=== PATIENT | male | born 1960 | race Caucasian/White ===

== ENCOUNTER 2022-06-13 09:03 | Inpatient (IN) | payer OTHER, SELFPAY ==
--- NOTE | ~2022-06-13 | MR_ITS ---
EXAMINATION: MR ABDOMEN WITHOUT CONTRAST CLINICAL INFORMATION: Pancreatitis. Rule out common bile duct stone. COMPARISON: Previous CT and ultrasound of the abdomen 06/13/2022 TECHNIQUE: MR abdomen is performed without gadolinium contrast. MRCP sequences were performed. Exam is limited due to respiratory motion artifact. FINDINGS: LUNG BASES: There may be atelectasis at the lung bases. LIVER, GALLBLADDER, AND BILIARY TREE: The liver is normal in size and signal. No focal liver lesion. The gallbladder is normal in size. There are small gallstones. Gallbladder wall does not appear thickened. There is no pericholecystic fluid. MRCP sequences are significantly limited due to respiratory motion artifact. There is no intra or extrahepatic biliary duct dilatation. The common bile duct does not appear dilated measuring 4 mm. No common bile duct stone is appreciated. PANCREAS: The pancreas is slightly enlarged. The pancreas is heterogeneous in signal. There is abnormal signal seen in the peripancreatic fat and small bowel mesentery. There is a small amount of ascites seen in the bilateral paracolic gutters and bilateral anterior pararenal spaces. Appearance is again suggestive of acute pancreatitis. SPLEEN: Unremarkable. ADRENAL GLANDS: Unremarkable. KIDNEYS AND URETERS: The kidneys are normal in size and shape. No hydronephrosis. There is perinephric stranding. GASTROINTESTINAL TRACT: There is increasing small and large bowel dilatation. This may represent an ileus. ABDOMINAL WALL: No significant hernia is appreciated. LYMPH NODES: No lymphadenopathy. VASCULAR: Unremarkable. OSSEOUS STRUCTURES: Marrow signal normal. MR/MR MRCP IMPRESSION: Very limited exam due to respiratory motion artifact. Normal caliber intra and extrahepatic bile ducts. No common bile duct stone is appreciated however exam is significantly limited. Gallstones. Changes of acute pancreatitis as described above. Distended small and large bowel probably representing an ileus.
--- NOTE | ~2022-06-13 | CT_ITS ---
EXAM: NONCONTRAST CT OF THE CHEST; NONCONTRAST CT OF THE ABDOMEN AND PELVIS INDICATION: Abdominal pain, pancreatitis, shortness of breath COMPARISON: 2722 TECHNIQUE: No IV contrast was utilized. Multidetector helical imaging was performed through the chest, abdomen, and pelvis. Coronal and sagittal reformatted images were created at the technologist workstation. DOSE LOWERING TECHNIQUES: This CT examination was performed using dose optimization techniques as appropriate, variously including the following: - Automated exposure control - Adjustment of mA and/or kV according to patient size (this includes techniques or standardized protocols for targeted exams were dose is matched to indication/reason for exam; i.e. extremities or head) - Use of iterative reconstruction technique DLP: 1028 mGy-cm FINDINGS: Chest: Suboptimal detailed assessment of the lung parenchyma due to respiratory motion artifact. Multifocal regions of consolidation are present in the left lung and to a lesser extent in the right lung. Regions of atelectasis are suspected in the dependent lower lobes. Small bilateral pleural effusions. Partially visualized thyroid gland is unremarkable. No appreciable mediastinal lymphadenopathy, though assessment is somewhat limited on this noncontrast exam. Cardiac size is within normal limits; no pericardial effusion. No axillary lymphadenopathy is present. Degenerative changes are noted in the spine. Abdomen/Pelvis: The liver is homogeneous in attenuation without intrahepatic biliary ductal dilatation. Cholelithiasis is noted. The unenhanced spleen and adrenal glands are within normal limits. There is extensive peripancreatic stranding, similar to slightly improved from prior, consistent with pancreatitis. Assessment for parenchymal necrosis cannot be made without intravenous contrast. Small amount of free fluid is present, without appreciable focal collection. The unenhanced kidneys are unremarkable without hydronephrosis. No renal or ureteral calculi are present. The urinary bladder is unremarkable. The prostate and seminal vesicles are unremarkable. The small and large bowel are unremarkable without evidence of obstruction or pericolonic inflammatory change. The appendix is unremarkable. No free fluid or free air is identified. Mild scattered calcifications along the aorta. No retroperitoneal or pelvic lymphadenopathy is seen. Partially visualized left total hip arthroplasty. Degenerative changes are noted in the spine. Bilateral L5 pars defects are noted. CT/CT abdomen pelvis wo IV con IMPRESSION: 1. Extensive peripancreatic stranding consistent with pancreatitis, similar to slightly improved from 06/13/2022. Small amount of free fluid, without appreciable focal collection. 2. Cholelithiasis. 3. Multifocal regions of pulmonary consolidation bilaterally, left lung greater than right, which may be infectious. 4. Small pleural effusions. Adjacent regions of dense opacity in the dependent lower lobes are favored to at least partially represent atelectasis.
--- NOTE | ~2022-06-13 | US_ITS ---
EXAMINATION: US ABDOMEN LIMITED CLINICAL INFORMATION: Transaminitis, abdominal pain. COMPARISON: CT from earlier today TECHNIQUE: Real-time imaging of the right upper quadrant abdominal viscera. FINDINGS: PANCREAS: Visualized proximal portions of the pancreas appears edematous. LIVER: The liver is normal in size. The liver contour is normal. Parenchymal echogenicity is normal. No focal hepatic lesion. There is no intrahepatic biliary duct dilatation seen. GALLBLADDER: Gallstones are identified along with echogenic bile. Gallbladder wall thickness is within normal limits. Sonographic Hicks sign is reportedly negative. COMMON BILE DUCT: Normal in caliber measuring 0.3 cm in diameter. RIGHT KIDNEY: No hydronephrosis. No renal calculi or focal parenchymal lesions. The kidney measures 11.6 cm in maximum dimension. FREE FLUID: Small volume of free fluid in the right upper quadrant. US/US abdomen limited IMPRESSION: 1. Edematous appearance of the pancreas, in keeping with today's CT showing findings of pancreatitis. 2. Cholelithiasis. 3. Small volume of free fluid in the right abdomen.
--- NOTE | ~2022-06-13 | XR_ITS ---
EXAMINATION: XR CHEST CLINICAL INFORMATION: Wheezing. COMPARISON: CT of the abdomen and pelvis done on 06/13/2022. TECHNIQUE: Frontal view of the chest was obtained. FINDINGS: Low lung volume is present bilaterally with patchy airspace disease at left perihilar and lower lung field, may represent infiltrate, atelectasis or combination thereof, new since 06/13/2022. Likely small amount of left-sided pleural effusion is also noted, new since prior study. The remainder of the lung mcclure are clear. The cardiomediastinal silhouette is within normal limits, given the technique. XR/XR chest 1V IMPRESSION: Interval development of patchy airspace disease at left perihilar and lower lung field associated with trace amount of left-sided pleural effusion, new since 06/13/2022.
--- NOTE | ~2022-06-13 | CT_ITS ---
EXAMINATION: CT ABDOMEN AND PELVIS WITH CONTRAST CLINICAL INFORMATION: Abdominal pain with elevated white blood cell count. COMPARISON: None TECHNIQUE: Multidetector volumetric images were obtained from the superior aspect of the liver through the pubic symphysis following administration 85 mL of Omnipaque 350 intravenous contrast. Sagittal and coronal reformatted images were obtained on the technologist's workstation. Oral contrast: No This CT examination was performed using dose optimization techniques as appropriate, variously including the following: *Automated exposure control *Adjustment of mA and/or kV according to patient size (this includes techniques or standardized protocols for targeted exams where dose is matched to indication/reason for exam; i.e. extremities or head) *Use of iterative reconstruction technique DLP: 1102 mGy-cm FINDINGS: LUNG BASES: Left basilar atelectasis is present with some nonspecific ground-glass changes. No pleural effusions or consolidations. LIVER, GALLBLADDER, AND BILIARY TREE: The liver is normal in size, shape, and attenuation. No focal hepatic lesion or biliary ductal dilatation is present. The gallbladder contains small layering gallstones without obvious pericholecystic inflammatory changes. PERITONEUM: Ascites is present predominantly in the upper abdomen surrounding the pancreas. Retroperitoneal effusion and edema is present. A tiny amount of free fluid is present in the cul-de-sac. PANCREAS: 2 areas of ill-defined hypodensity are seen in the pancreas, one in the pancreatic head measuring about 2.8 cm and a smaller region in the pancreatic tail measuring about 5 mm. Edematous changes and fluid surround the pancreas. SPLEEN: Unremarkable. ADRENAL GLANDS: Unremarkable. KIDNEYS AND URETERS: The kidneys are normal in size, shape, and attenuation. No hydronephrosis, hydroureter, or calculi seen. No perinephric stranding. BLADDER: Unremarkable. GASTROINTESTINAL TRACT: The small and large bowel are unremarkable. The appendix is not identified but there is no evidence of appendicitis. ABDOMINAL WALL: No significant hernia is appreciated. LYMPH NODES: No retroperitoneal lymphadenopathy. VASCULAR: Unremarkable. Retroaortic left renal vein is present. PELVIC VISCERA: Prostate and seminal vesicles appear normal. OSSEOUS STRUCTURES: Unremarkable. CT/CT abdomen pelvis w IV con IMPRESSION: Edematous changes predominantly surrounding the pancreatitis. Ill-defined areas of hypodensity in the pancreas. Findings are highly suggestive of acute pancreatitis. An abscess or any other cause for the patient's leukocytosis is not seen. This critical result was discussed with LAWRENCE Moscoso, at 12:50 PM on the day of the exam and it was ascertained that the content and urgency of the report was understood at the time of direct communication. Fleischner guidelines were followed.
[2022-06-13 09:42] VITALS: BP 145/96; PULSE 91; RESP 18; TEMP 36.9; O2SAT 98; BMI 32.8
--- NOTE | 2022-06-13 09:46 | ECG_ITS ---
Test Reason : abdominal pain Blood Pressure : / mmHG Vent. Rate : 079 BPM Atrial Rate : 079 BPM P-R Int : 140 ms QRS Dur : 088 ms QT Int : 392 ms P-R-T Axes : 074 060 087 degrees QTc Int : 449 ms Normal sinus rhythm Normal ECG No previous ECGs available Referred By: Generic ED Physician Electronically Signed By:TE GONCALVES
[2022-06-13 09:57] VITALS: BP 193/107; PULSE 87; RESP 12; TEMP 36.4
[2022-06-13 10:23] LABS: MANUAL DIFF FLAG NO
[2022-06-13 10:24] LABS: Basophils Percent Auto 0.2 % (0-2); Eosinophils Percent Auto 0.1 % (0-4); Hematocrit 46.7 % (42.0-52.0); Imm Gran Pct Auto 0.6 % (0.0-0.4); Lymphocytes Absolute Auto 0.6 X10*3/uL (1.2-4.9); Lymphocytes Percent Auto 3.5 % (20-40); Mean Corpuscular HGB Conc 32.1 g/dl (31.0-36.0); Mean Corpuscular Volume 81.1 fL (80.0-98.0); Mean Platelet Volume 9.9 fL (9.4-12.4); Monocytes Absolute Auto 0.9 X10*3/uL (0.1-1.2); Monocytes Percent Auto 5.6 % (2-11); Neutrophils Absolute Auto 14.8 x10*3/uL (2.0-8.3); Platelet Count 288 X10*3/uL (160-400); Red Blood Count 5.76 X10*6/uL (4.60-5.80); Red Cell Distribution Width 14.4 % (11.0-16.0); White Blood Count 16.4 X10*3/uL (4.8-10.8)
[2022-06-13] MEDS: ondansetron HCL 4 MG/2 ML VIAL IVPUSH (10:53)
[2022-06-13] MEDS: Morphine Sulfate 4 MG/ML CARTRIDGE IVPUSH ×2 (10:53→12:18)
[2022-06-13] MEDS: 0.9 % Sodium Chloride 1,000 ML 999 ML IV ×2 (10:54→14:50)
[2022-06-13 10:56] LABS: Anion Gap 18 (12-20); Blood Urea Nitrogen 22 mg/dL (9-16); Calcium 9.4 mg/dL (8.4-10.2); Carbon Dioxide 27 mmol/L (22-29); Chloride 101 mmol/L (96-108); Creatinine Clr Calc Pharmacy 83.4; Estimated Glomerular Filt Rate > 60; Glucose Random 218 mg/dL (60-115); Potassium 4.7 mmol/L (3.3-5.1); Sodium 141 mmol/L (135-145)
[2022-06-13 11:22] LABS: Alanine Aminotransferase 241 U/L (0-40); Albumin Level 4.7 g/dL (3.5-5.0); Alkaline Phosphatase 178 U/L (39-117); Aspartate Amino Transferase 259 U/L (5-37); Bilirubin Direct 0.7 mg/dL (0.0-0.5); Bilirubin Total 1.4 mg/dL (0.0-1.0); Total Protein 7.5 g/dL (6.5-8.0)
[2022-06-13 11:24] LABS: Lactic Acid 2.8 mmol/L (0.5-2.0)
[2022-06-13 11:31] LABS: Troponin-I High Sensitivity 5.8 ng/L (<3.5-35.0)
[2022-06-13 11:39] LABS: Lipase 1948 U/L (8-78)
[2022-06-13] MEDS: iohexoL 350 MG/ML 100 ML INFUS..BTL IV (11:42)
[2022-06-13] MEDS: Piperacillin Sodium/Tazobactam 3.375 GM in 0.9 % Sodium Chloride 50 ML IV (11:50)
--- NOTE | 2022-06-13 13:06 | ED_ITS ---
HPI - Abdominal Pain General Chief Complaint: Abdominal Pain Stated Complaint: severe stomach pain Time Seen by Provider: 06/13/22 10:32 Source: patient Mode of arrival: ambulatory Limitations: no limitations History of Present Illness HPI narrative: 61-year-old male history of High cholesterol presents to the ED for epigastric abdominal pain that is generailzed. Symptoms began this morning with nausea and vomitting. patient denies any urinary symptoms, Related Data Home Medications Medication Instructions Recorded Confirmed amlodipine 5 mg-benazepril 10 mg 1 cap PO DAILY 06/13/22 06/13/22 capsule fluticasone propionate 50 2 spray intranasal DAILY 06/13/22 06/13/22 mcg/actuation nasal spray,suspension omeprazole 40 mg capsule,delayed 1 cap PO DAILY 06/13/22 06/13/22 release rosuvastatin 40 mg tablet 1 tab PO DAILY 06/13/22 06/13/22 tamsulosin 0.4 mg capsule 1 cap PO DAILY 06/13/22 06/13/22 Allergies Allergy/AdvReac Type Severity Reaction Status Date / Time No Known Allergies Allergy Verified 06/13/22 09:45 Review of Systems Review of Systems Epigastric abdominal pain Yes all other systems are reviewed and are negative PMFSH Past Medical History Medical History BPH (benign prostatic hyperplasia) GERD (gastroesophageal reflux disease) HLD (hyperlipidemia) HTN (hypertension) Family History Family History Father IA (myocardial infarction) Mother Diabetes HLD (hyperlipidemia) Social History Social History Alcohol intake: current Alcohol intake frequency: holidays/special occasions only Alcohol type: beer Patient Tobacco Use Status: Never used Tobacco Use of substances other than those prescribed or required for medical reasons: No Advance Directives: Yes Advance Directives Information Provided: Yes Advance Directives on File: No Physical Exam ED Vital Signs: Vital Signs - 24 hr 06/13/22 09:42 06/13/22 09:57 06/13/22 14:44 Temperature 98.4 F 97.5 F Pulse Rate 91 87 103 H Respiratory Rate 18 12 18 Blood Pressure 145/96 H 193/107 H 147/96 H Pulse Oximetry 98 97 Oxygen Delivery Method Room Air Room Air Room Air BMI result Body Mass Index 32.8 Const General: cooperative, healthy appearing, comfortable, no acute distress, well developed, alert, awake and acute distress Orientation/consciousness: patient oriented x3 [facility] Head: Yes normal to inspection, Yes No palpable skull fracture present, Yes normocephalic, Yes atraumatic and No abrasion Eyes General: appearance normal, both eyes and all related structures Neck Neck: Yes normal visual inspection, Yes full ROM, Yes no lymphadenopathy, Yes no meningeal signs, Yes trachea midline, Yes supple, No anterior neck swelling and No tender Chest Chest palpation & inspection: normal inspection of the chest and normal palpation of entire chest wall Resp Effort & Inspection: normal respiratory effort and able to speak in complete sentences Cardio Jugular venous distension: no JVD Heart sounds: S1 normal heart sound present and S2 normal heart sound present GI Inspection: Yes normal to inspection and No abdominal wall ecchymosis Palpation (GI): Tenderness to palpation present (GI) (generalized), Guarding due to palpation present (GI) (generalized) and not rigid General: No CVA tenderness and Yes no CVA tenderness Back/Spine/Pelvis Back: no CVA tenderness, No CVA tenderness and No back tenderness Skin General skin exam: no rashes or lesions noted and elasticity normal Neuro General: patient oriented x3, gait normal, tone normal and no meningeal signs Cranial nerves: Yes CN's II-XII intact bilaterally Extrem General: Yes normal to inspection and Yes full ROM Psych Appearance: grossly normal, well kempt and not disheveled Course Course Course Narrative: Labs abdominal CT scan ordered for Reevaluation(s) Reevaluation #1: Lactic 2.6. Lipase over 1000. Morphine 8 total oral Zofran and fluids. CT scan shows pancreatitis. Patient to be admitted for acute pancreatitis. Patient was given antibiotics before CT scan was officially read due to elevated WBC an d lacitcacid. Time: 17:37 MDM - Abdominal Pain MDM Narrative Medical decision making narrative: Acute pancreatitis Lab Data Result diagrams: 06/13/22 10:18 06/13/22 10:36 Labs: Lab Results 06/13/22 06/13/22 06/13/22 Range/Units 10:18 10:36 10:36 WBC 16.4 H (4.8-10.8) X10*3/uL RBC 5.76 (4.60-5.80) X10*6/uL Hgb 15.0 (14.0-18.0) g/dl Hct 46.7 (42.0-52.0) % MCV 81.1 (80.0-98.0) fL MCH 26.0 L (27.0-33.0) pg MCHC 32.1 (31.0-36.0) g/dl RDW 14.4 (11.0-16.0) % Plt Count 288 (160-400) X10*3/uL MPV 9.9 (9.4-12.4) fL Immature Gran % (Auto) 0.6 H (0.0-0.4) % Neut % (Auto) 90.0 H (45-73) % Lymph % (Auto) 3.5 L (20-40) % [place] % (Auto) 5.6 (2-11) % Eos % (Auto) 0.1 (0-4) % Baso % (Auto) 0.2 (0-2) % Lymph # (Auto) 0.6 L (1.2-4.9) X10*3/uL [place] # (Auto) 0.9 (0.1-1.2) X10*3/uL Eos # (Auto) 0.0 (0.0-0.4) X10*3/uL Baso # (Auto) 0.0 (0.0-0.2) X10*3/uL Abs Immat Gran (auto) 0.10 H (0.00-0.03) X10*3/uL Absolute Neuts (auto) 14.8 H (2.0-8.3) x10*3/uL Absolute Nucleated RBC 0.000 (0.0-0.012) X10*3/uL Nucleated RBC % (auto) 0.0 (0.0-0.2) /100WBC Sodium 141 (135-145) mmol/L Potassium 4.7 (3.3-5.1) mmol/L Chloride 101 (96-108) mmol/L Carbon Dioxide 27 (22-29) mmol/L Anion Gap 18 (12-20) BUN 22 H (9-16) mg/dL Creatinine 1.01 (0.5-1.4) mg/dL Estim Creat Clear Calc 83.4 Estimated GFR > 60 Random Glucose 218 H (60-115) mg/dL Estimat Average Glucose Hemoglobin A1c % Lactic Acid (0.5-2.0) mmol/L Lactic Acid F/U @ 2Hr (0.5-2.0) mmol/L Calcium 9.4 (8.4-10.2) mg/dL Total Bilirubin 1.4 H (0.0-1.0) mg/dL Direct Bilirubin 0.7 H (0.0-0.5) mg/dL AST 259 H (5-37) U/L ALT 241 H (0-40) U/L Alkaline Phosphatase 178 H (39-117) U/L Troponin I High Sens 5.8 (<3.5-35.0) ng/L Total Protein 7.5 (6.5-8.0) g/dL Albumin 4.7 (3.5-5.0) g/dL Triglycerides 202 mg/dL Lipase 1948 H (8-78) U/L Urine Color Urine Appearance Urine pH (5.0-9.0) Ur Specific [place] (1.005-1.025) Urine Protein (Neg-Trace) mg/dL Urine Glucose (UA) (Negative) mg/dL Urine Ketones (Negative) mg/dL Urine Blood (Negative) Urine Nitrite (Negative) Ur Leukocyte Esterase (Negative) Urine RBC (0-2) /HPF Urine WBC (0-5) /HPF Ur Squamous Epith Cells (0-2) /HPF Urine Bacteria (None Seen) Hyaline Casts (0-2) /LPF 06/13/22 06/13/22 06/13/22 Range/Units 10:36 11:00 13:39 WBC (4.8-10.8) X10*3/uL RBC (4.60-5.80) X10*6/uL Hgb (14.0-18.0) g/dl Hct (42.0-52.0) % MCV (80.0-98.0) fL MCH (27.0-33.0) pg MCHC (31.0-36.0) g/dl RDW (11.0-16.0) % Plt Count (160-400) X10*3/uL MPV (9.4-12.4) fL Immature Gran % (Auto) (0.0-0.4) % Neut % (Auto) (45-73) % Lymph % (Auto) (20-40) % [place] % (Auto) (2-11) % Eos % (Auto) (0-4) % Baso % (Auto) (0-2) % Lymph # (Auto) (1.2-4.9) X10*3/uL [place] # (Auto) (0.1-1.2) X10*3/uL Eos # (Auto) (0.0-0.4) X10*3/uL Baso # (Auto) (0.0-0.2) X10*3/uL Abs Immat Gran (auto) (0.00-0.03) X10*3/uL Absolute Neuts (auto) (2.0-8.3) x10*3/uL Absolute Nucleated RBC (0.0-0.012) X10*3/uL Nucleated RBC % (auto) (0.0-0.2) /100WBC Sodium (135-145) mmol/L Potassium (3.3-5.1) mmol/L Chloride (96-108) mmol/L Carbon Dioxide (22-29) mmol/L Anion Gap (12-20) BUN (9-16) mg/dL Creatinine (0.5-1.4) mg/dL Estim Creat Clear Calc Estimated GFR Random Glucose (60-115) mg/dL Estimat Average Glucose Cancelled Hemoglobin A1c % Cancelled Lactic Acid 2.8 H* (0.5-2.0) mmol/L Lactic Acid F/U @ 2Hr 2.3 H* (0.5-2.0) mmol/L Calcium (8.4-10.2) mg/dL Total Bilirubin (0.0-1.0) mg/dL Direct Bilirubin (0.0-0.5) mg/dL AST (5-37) U/L ALT (0-40) U/L Alkaline Phosphatase (39-117) U/L Troponin I High Sens (<3.5-35.0) ng/L Total Protein (6.5-8.0) g/dL Albumin (3.5-5.0) g/dL Triglycerides mg/dL Lipase (8-78) U/L Urine Color Urine Appearance Urine pH (5.0-9.0) Ur Specific [place] (1.005-1.025) Urine Protein (Neg-Trace) mg/dL Urine Glucose (UA) (Negative) mg/dL Urine Ketones (Negative) mg/dL Urine Blood (Negative) Urine Nitrite (Negative) Ur Leukocyte Esterase (Negative) Urine RBC (0-2) /HPF Urine WBC (0-5) /HPF Ur Squamous Epith Cells (0-2) /HPF Urine Bacteria (None Seen) Hyaline Casts (0-2) /LPF 06/13/22 Range/Units 14:14 WBC (4.8-10.8) X10*3/uL RBC (4.60-5.80) X10*6/uL Hgb (14.0-18.0) g/dl Hct (42.0-52.0) % MCV (80.0-98.0) fL MCH (27.0-33.0) pg MCHC (31.0-36.0) g/dl RDW (11.0-16.0) % Plt Count (160-400) X10*3/uL MPV (9.4-12.4) fL Immature Gran % (Auto) (0.0-0.4) % Neut % (Auto) (45-73) % Lymph % (Auto) (20-40) % [place] % (Auto) (2-11) % Eos % (Auto) (0-4) % Baso % (Auto) (0-2) % Lymph # (Auto) (1.2-4.9) X10*3/uL [place] # (Auto) (0.1-1.2) X10*3/uL Eos # (Auto) (0.0-0.4) X10*3/uL Baso # (Auto) (0.0-0.2) X10*3/uL Abs Immat Gran (auto) (0.00-0.03) X10*3/uL Absolute Neuts (auto) (2.0-8.3) x10*3/uL Absolute Nucleated RBC (0.0-0.012) X10*3/uL Nucleated RBC % (auto) (0.0-0.2) /100WBC Sodium (135-145) mmol/L Potassium (3.3-5.1) mmol/L Chloride (96-108) mmol/L Carbon Dioxide (22-29) mmol/L Anion Gap (12-20) BUN (9-16) mg/dL Creatinine (0.5-1.4) mg/dL Estim Creat Clear Calc Estimated GFR Random Glucose (60-115) mg/dL Estimat Average Glucose Hemoglobin A1c % Lactic Acid (0.5-2.0) mmol/L Lactic Acid F/U @ 2Hr (0.5-2.0) mmol/L Calcium (8.4-10.2) mg/dL Total Bilirubin (0.0-1.0) mg/dL Direct Bilirubin (0.0-0.5) mg/dL AST (5-37) U/L ALT (0-40) U/L Alkaline Phosphatase (39-117) U/L Troponin I High Sens (<3.5-35.0) ng/L Total Protein (6.5-8.0) g/dL Albumin (3.5-5.0) g/dL Triglycerides mg/dL Lipase (8-78) U/L Urine Color Yellow Urine Appearance Clear Urine pH 5.0 (5.0-9.0) Ur Specific [place] >= 1.030 H (1.005-1.025) Urine Protein 100 (2+) H (Neg-Trace) mg/dL Urine Glucose (UA) Negative (Negative) mg/dL Urine Ketones Negative (Negative) mg/dL Urine Blood Trace H (Negative) Urine Nitrite Negative (Negative) Ur Leukocyte Esterase Negative (Negative) Urine RBC 3-5 H (0-2) /HPF Urine WBC 0-5 (0-5) /HPF Ur Squamous Epith Cells 0-2 (0-2) /HPF Urine Bacteria None Seen (None Seen) Hyaline Casts 0-2 (0-2) /LPF ECG Data Interpretation: Normal sinus rhythm. Normal EKG. Ventricular rate 79. Pr interval 140. QRS 88. QTC 449. Negative STEMI Discharge Plan Discharge Clinical Impression: Acute pancreatitis Patient Disposition: Admitted As Inpatient
[2022-06-13 13:08] LABS: Reflex Lactate? Lactic Acid Added
[2022-06-13 13:57] LABS: ~Lactic Acid-LAB USE ONLY 2.3 mmol/L (0.5-2.0)
[2022-06-13 14:02] LABS: Triglycerides 202 mg/dL
[2022-06-13 14:27] LABS: Appearance Urine Clear; Color Urine Yellow; Glucose Urine UA Negative (Negative); Leukocyte Esterase Urine Negative (Negative); Nitrite Urine Negative (Negative); Specific Gravity - Urine >= 1.030 (1.005-1.025); UMIC TRIGGER UACC YES; Urine Blood Trace (Negative); Urine Ketones Negative (Negative); Urine Protein 100 (2+) mg/dL (Neg-Trace)
[2022-06-13 14:30] LABS: Bacteria Urine None Seen (None Seen); Hyaline Casts Urine 0-2 /LPF (0-2); Squamous Epithelial Cell Urine 0-2 /HPF (0-2); WBC Urine 0-5 /HPF (0-5)
[2022-06-13 14:44] VITALS: BP 147/96; PULSE 103; RESP 18; O2SAT 97
[2022-06-13] MEDS: HYDROmorphone HCl 0.5 MG/0.5 ML SYRINGE IVPUSH (14:51)
--- NOTE | 2022-06-13 15:37 | PM.EVENT ---
Event Note Date of Service: 06/13/22 Event Note: The patient was seen and evaluated with LAWRENCE Servin. I agree with her note, assessment and plan with the following. A 61 years old male with PMH of HLD presents to the hospital with epigastric pain of sudden onset. Associated with nausea, vomiting, radiating to his back. CT scan consistent with pancreatitis. The patient reported history of recurrent abdominal pain after dinner for the last few months associated with nausea and vomiting on occasions. Denies any fever, chills, shortness of breath, change in bowel habit or urinary symptoms. Acute pancreatitis with transaminitis Could be secondary to passing stone Check ultrasound of the liver Get GI and surgery evaluation IV fluids high rate Dilaudid for pain control Keep NPO for now Rest of evaluations by PA note.
--- NOTE | 2022-06-13 15:38 | P.HPHOSP_ITS ---
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 He had also received influenza vaccine and COVID-19 booster earlier in the day. States the pain is primarily epigastric but radiates to the right and left upper quadrants. Denies radaition to the back. There is associated nausea but no vomiting. Also endorses constipation. He rarely consumes alcohol and did not have any alcohol yesterday. States the pain is so severe it is difficult to take a breath. States he has had similar episodes, typically postprandial, over the last few months that resolve spontaneously. States he will take tums or pepcid to help with sx but did not help last night. In ED, mild tachycardia 103, hypertensive 193/107 improved to 147/96. WBC 16.4. Lactic acid 2.8, improved to 2.3. Lipase 1948. AST 259, ALT 241, alk phos 178, total bili 1.4, direct bili 0.7. Glucose 218. Triglycerides 205. CT abd/pelvis shows edematous changes predominantly surrounding the pancreas. Ill-defined areas of hypodensity in the pancreas. Findings highly suggestive of acute pancreatitis without abscess. IN ED, patient recevied dose zosyn, 2L IVF bolus, and dilaudid. Pt to be admitted for acute pancreatitis with transaminitis. Review of Systems Review of Systems: General: No fevers, malaise, unintentional weight loss Cardiovascular: No chest pain, palpitations, or leg edema Respiratory: No shortness of breath, wheezing, cough GI: +epigastric pain, +nausea, +constiaption. No vomiting, diarrhea, melena, hematochezia : No dysuria, hematuria, increased urinary frequency. Neuro: No headaches, weakness, paresthesias Skin: No rashes or lesions [facility] Medical History (Updated 06/13/22 @ 15:55 by LAWRENCE Servin) BPH (benign prostatic hyperplasia) GERD (gastroesophageal reflux disease) HLD (hyperlipidemia) HTN (hypertension) Family History (Updated 06/13/22 @ 15:56 by LAWRENCE Servin) Father IA (myocardial infarction) Mother Diabetes HLD (hyperlipidemia) Social History (Updated 06/13/22 @ 15:57 by LAWRENCE Servin) Alcohol intake: current Alcohol intake frequency: holidays/special occasions only Alcohol type: beer Patient Tobacco Use Status: Never used Tobacco Use of substances other than those prescribed or required for medical reasons: No Advance Directives: Yes Advance Directives Information Provided: Yes Advance Directives on File: No Meds Allergies Allergy/AdvReac Type Severity Reaction Status Date / Time No Known Allergies Allergy Verified 06/13/22 09:45 Active Medications: Current Medications Sodium Chloride (Ns) 1,000 mls @ 999 mls/hr IV .Q1H1M STA Stop: 06/13/22 15:45 Last Admin: 06/13/22 14:50 Dose: 999 mls/hr Pharmacy Consult (Consult Rx Perform Med Rec) 1 each MISCELLANE ONCE PRN PRN Reason: Consult order Pharmacy Consult (Consult Rx Perform Med Rec) 1 each MISCELLANE ONCE PRN PRN Reason: Consult order Home Medications Medication Instructions Recorded Confirmed Last Taken Type amlodipine 5 mg-benazepril 10 mg 1 cap PO DAILY 06/13/22 06/13/22 06/12/22 History capsule fluticasone propionate 50 2 spray intranasal DAILY 06/13/22 06/13/22 06/12/22 History mcg/actuation nasal spray,suspension omeprazole 40 mg capsule,delayed 1 cap PO DAILY 06/13/22 06/13/22 06/12/22 History release rosuvastatin 40 mg tablet 1 tab PO DAILY 06/13/22 06/13/22 06/12/22 History tamsulosin 0.4 mg capsule 1 cap PO DAILY 06/13/22 06/13/22 06/12/22 History Physical Exam Vital Signs and Narrative: Vital Signs: Last Vital Signs Temp 97.5 F 06/13/22 09:57 Pulse 103 H 06/13/22 14:44 Resp 18 06/13/22 14:44 BP 147/96 H 06/13/22 14:44 Pulse Ox 97 06/13/22 14:44 O2 Del Method 06/13/22 14:44 BMI result Body Mass Index 32.8 Constitutional - Awake and Alert, patient grimmacing in pain holding abdomen Eyes - PERRLA, EOMI Cardiovascular - S1S2, RRR, No edema Respiratory - Normal lung expansion, Normal respiratory effort, No respiratory distress, CTA bilaterally Gastrointestinal - Severe epigastric pain ttp with guarding. Mildly distended. +BS; Extremities - no calf tenderness bilaterally, no swelling Skin - Warm/Dry Neurological - Alert & oriented x3, CN II -XII in tact. 5/5 strength bue and ble Results Labs CBC and Chem 7: 06/13/22 10:18 06/13/22 10:36 Labs: Laboratory Results - last 24 hr 06/13/22 06/13/22 06/13/22 10:18 10:36 11:00 MCV 81.1 MCH 26.0 L MCHC 32.1 RDW 14.4 Plt Count 288 MPV 9.9 Immature Gran % (Auto) 0.6 H Neut % (Auto) 90.0 H Lymph % (Auto) 3.5 L [place] % (Auto) 5.6 Eos % (Auto) 0.1 Baso % (Auto) 0.2 Lymph # (Auto) 0.6 L [place] # (Auto) 0.9 Eos # (Auto) 0.0 Baso # (Auto) 0.0 Abs Immat Gran (auto) 0.10 H Absolute Neuts (auto) 14.8 H Absolute Nucleated RBC 0.000 Nucleated RBC % (auto) 0.0 Anion Gap 18 Estim Creat Clear Calc 83.4 Estimated GFR > 60 Random Glucose 218 H Lactic Acid 2.8 H* Lactic Acid F/U @ 2Hr Calcium 9.4 Total Bilirubin 1.4 H Direct Bilirubin 0.7 H AST 259 H ALT 241 H Alkaline Phosphatase 178 H Total Protein 7.5 Albumin 4.7 Triglycerides 202 Lipase 1948 H Urine Color Urine Appearance Urine pH Ur Specific [place] Urine Protein Urine Glucose (UA) Urine Ketones Urine Blood Urine Nitrite Ur Leukocyte Esterase Urine RBC Urine WBC Ur Squamous Epith Cells Urine Bacteria Hyaline Casts 06/13/22 06/13/22 13:39 14:14 MCV MCH MCHC RDW Plt Count MPV Immature Gran % (Auto) Neut % (Auto) Lymph % (Auto) [place] % (Auto) Eos % (Auto) Baso % (Auto) Lymph # (Auto) [place] # (Auto) Eos # (Auto) Baso # (Auto) Abs Immat Gran (auto) Absolute Neuts (auto) Absolute Nucleated RBC Nucleated RBC % (auto) Anion Gap Estim Creat Clear Calc Estimated GFR Random Glucose Lactic Acid Lactic Acid F/U @ 2Hr 2.3 H* Calcium Total Bilirubin Direct Bilirubin AST ALT Alkaline Phosphatase Total Protein Albumin Triglycerides Lipase Urine Color Yellow Urine Appearance Clear Urine pH 5.0 Ur Specific [place] >= 1.030 H Urine Protein 100 (2+) H Urine Glucose (UA) Negative Urine Ketones Negative Urine Blood Trace H Urine Nitrite Negative Ur Leukocyte Esterase Negative Urine RBC 3-5 H Urine WBC 0-5 Ur Squamous Epith Cells 0-2 Urine Bacteria None Seen Hyaline Casts 0-2 Imaging Radiologist's Impressions: Impressions Abdomen/Pelvis CT 06/13/22 11:45 IMPRESSION: Edematous changes predominantly surrounding the pancreatitis. Ill-defined areas of hypodensity in the pancreas. Findings are highly suggestive of acute pancreatitis. An abscess or any other cause for the patient's leukocytosis is not seen. This critical result was discussed with LAWRENCE Moscoso, at 12:50 PM on the day of the exam and it was ascertained that the content and urgency of the report was understood at the time of direct communication. Fleischner guidelines were followed. Assessment and Plan (1) Acute pancreatitis: Status: Acute (2) Transaminitis: Status: Acute Plan 61 year old male with history of htn, hld, gerd, and bph admitted for acute pancreatitis of unclear etiology and transamininitis. 1-Acute pancreatitis- etiology unclear at this time -CT/abd pelvis with acute pancreatitis. Lipase >1900 -Triglycerides mildly elevated at 205. No recent etoh use -Received 2L NS. Continue LR @150mls/hr. Check potassium in several hours -Pain control using pain scale -Check lipase am -NPO, advance diet as tolerated -Meeting SIRS criteria but etiology not infectious. Tachycardic d/t pain. WBC elevated d/t pancreatitis/inflammation. Lactic acid elevated d/t dehydration. Not sepsis -GI consult placed 2-Transaminitis -AST 259, ALT 241, alk phos 179, total bili 1.4, direct bili 0.7 -Possible biliary colic- describes intermittent post prandial ruq/epigastric pain last 3 months -RUQ u/s ordered -GI and general surgery consutled 3-HTN- bp elevated due to pain, but improving following pain meds -Continue home meds -Monitor bp 4-HLD -COntinue crestor 5-GERD -Continue ppi 6-BPH -conitnue flomax DVT prophylaxis- lovenox Full code Pt requires inpt stay at least 2 midnights for management of acute pancreatitis. Pt requires aggressive IVF management and NPO status with diet advancement as tolerated. Etiology of pancreatitis is unclear and further workup is required to determine and manage etiology. Quality Stroke Does the patient have a stroke diagnosis?: No VTE Prior VTE?: No VTE Risk Level:: Medical - moderate - high VTE Device Contraindication: Treatment Not Indicated VTE Drug Contraindication: N/A - Med Ordered
[2022-06-13 15:41] LABS: Reflex Lactate? 2 Y
--- NOTE | 2022-06-13 15:48 | PM.CNGS ---
History of Present Illness Consult details Consult date: 06/13/22 Narrative: The pt is a 61y man seen at the request of the ER & hospitalist/medical team for pancreatitis. The patient states that the 1st episode started about 3 months ago and he attributed it to eating the wrong thing. He reports a couple other episodes but none as severe as this episode that started last night. He notes that around 830pm his epigastric and back pain became much more diffuse in unrelenting, it was accompanied by nausea and vomiting any came to the emergency department. He denies any alcohol use but notes that he does vape nicotine. He denies any street drug use Review of Systems Review of Systems: Yes all other systems are reviewed and are negative Constitutional: Constitutional: Reports as per [facility] Past Medical History Medical History BPH (benign prostatic hyperplasia) GERD (gastroesophageal reflux disease) HLD (hyperlipidemia) HTN (hypertension) Family History Family History Father [place] (myocardial infarction) Mother Diabetes HLD (hyperlipidemia) Social History Social History Alcohol intake: current Alcohol intake frequency: holidays/special occasions only Alcohol type: beer Patient Tobacco Use Status: Never used Tobacco Use of substances other than those prescribed or required for medical reasons: No Advance Directives: Yes Advance Directives Information Provided: Yes Advance Directives on File: No Meds Allergies Allergy/AdvReac Type Severity Reaction Status Date / Time No Known Allergies Allergy Verified 06/13/22 09:45 Active Medications: Current Medications Acetaminophen (Acetaminophen 325 Mg Tablet) 650 mg PO Q6H PRN PRN Reason: Pain, Mild (Pain Scale 1-3) Docusate Sodium (Docusate Sodium 100 Mg Capsule) 100 mg PO BID [facility] Enoxaparin Sodium (Enoxaparin Sodium 40 Mg/0.4 Ml Syringe) 40 mg SUBCUT Q24H [facility] Hydromorphone HCl (Hydromorphone Hcl 1 Mg/Ml Syringe) 1 mg IVPUSH Q4H PRN; Protocol PRN Reason: Pain, Severe (Pain Scale 7-10) Lactated Ringer's (Lr) 1,000 mls @ 150 mls/hr IVCONT .Q6H40M [facility] Morphine Sulfate (Morphine Sulfate 4 Mg/Ml Cartridge) 1 mg IVPUSH Q4H PRN; Protocol PRN Reason: Pain, Moderate (Pain Scale 4-6 Ondansetron HCl (Ondansetron Hcl 4 Mg/2 Ml Vial) 4 mg IVPUSH Q8H PRN PRN Reason: Nausea and Vomiting Pharmacy Consult (Consult Rx Perform Med Rec) 1 each MISCELLANE ONCE PRN PRN Reason: Consult order Sodium Chloride (0.9 % Sodium Chloride Flush 3 Ml Syringe) 3 ml IVFLUSH QSHIFT COUNTS INCLUDE 234 BEDS AT THE [facility] Home Medications Medication Instructions Recorded Confirmed Last Taken Type amlodipine 5 mg-benazepril 10 mg 1 cap PO DAILY 06/13/22 06/13/22 06/12/22 History capsule fluticasone propionate 50 2 spray intranasal DAILY 06/13/22 06/13/22 06/12/22 History mcg/actuation nasal spray,suspension omeprazole 40 mg capsule,delayed 1 cap PO DAILY 06/13/22 06/13/22 06/12/22 History release rosuvastatin 40 mg tablet 1 tab PO DAILY 06/13/22 06/13/22 06/12/22 History tamsulosin 0.4 mg capsule 1 cap PO DAILY 06/13/22 06/13/22 06/12/22 History Physical Exam Vital Signs: Vital Signs: Last Vital Signs Temp 97.5 F 06/13/22 09:57 Pulse 103 H 06/13/22 14:44 Resp 18 06/13/22 14:44 BP 147/96 H 06/13/22 14:44 Pulse Ox 97 06/13/22 14:44 O2 Del Method 06/13/22 14:44 BMI result Body Mass Index 32.8 The patient is uncomfortable and lying on his left side NC/AT, PERRLA, EOMI Mood, affect & judgment all appear appropriate under the circumstances Sclera anicteric conjunctiva pink and moist Oropharynx is clear with no aphthous ulcers, Mallampati class 4, mucous membranes moist Neck is supple with no masses, adenopathy or bruits Heart is regular, normal S1-S2 no rubs or murmurs Lungs are clear and equal anteriorly with no audible wheezing, rubs or dullness to percussion Abdomen is overweight with no demonstrable hernias. Diffuse tenderness, predominantly in the epigastrium is noted with no peritoneal irritation to percussion. No HSM, rebound, rigidity, guarding, masses or bruits are present. Rectal exam is deferred Skin has good turgor and is free of rashes Extremities free of cyanosis clubbing edema Results Labs Result diagrams: 06/13/22 10:18 06/13/22 10:36 Labs: Abnormal lab results 06/13/22 06/13/22 06/13/22 Range/Units 10:18 10:36 11:00 WBC 16.4 H (4.8-10.8) X10*3/uL MCH 26.0 L (27.0-33.0) pg Immature Gran % (Auto) 0.6 H (0.0-0.4) % Neut % (Auto) 90.0 H (45-73) % Lymph % (Auto) 3.5 L (20-40) % Lymph # (Auto) 0.6 L (1.2-4.9) X10*3/uL Abs Immat Gran (auto) 0.10 H (0.00-0.03) X10*3/uL Absolute Neuts (auto) 14.8 H (2.0-8.3) x10*3/uL BUN 22 H (9-16) mg/dL Random Glucose 218 H (60-115) mg/dL Lactic Acid 2.8 H* (0.5-2.0) mmol/L Lactic Acid F/U @ 2Hr (0.5-2.0) mmol/L Total Bilirubin 1.4 H (0.0-1.0) mg/dL Direct Bilirubin 0.7 H (0.0-0.5) mg/dL AST 259 H (5-37) U/L ALT 241 H (0-40) U/L Alkaline Phosphatase 178 H (39-117) U/L Lipase 1948 H (8-78) U/L Ur Specific [place] (1.005-1.025) Urine Protein (Neg-Trace) mg/dL Urine Blood (Negative) Urine RBC (0-2) /HPF 06/13/22 06/13/22 Range/Units 13:39 14:14 WBC (4.8-10.8) X10*3/uL MCH (27.0-33.0) pg Immature Gran % (Auto) (0.0-0.4) % Neut % (Auto) (45-73) % Lymph % (Auto) (20-40) % Lymph # (Auto) (1.2-4.9) X10*3/uL Abs Immat Gran (auto) (0.00-0.03) X10*3/uL Absolute Neuts (auto) (2.0-8.3) x10*3/uL BUN (9-16) mg/dL Random Glucose (60-115) mg/dL Lactic Acid (0.5-2.0) mmol/L Lactic Acid F/U @ 2Hr 2.3 H* (0.5-2.0) mmol/L Total Bilirubin (0.0-1.0) mg/dL Direct Bilirubin (0.0-0.5) mg/dL AST (5-37) U/L ALT (0-40) U/L Alkaline Phosphatase (39-117) U/L Lipase (8-78) U/L Ur Specific [place] >= 1.030 H (1.005-1.025) Urine Protein 100 (2+) H (Neg-Trace) mg/dL Urine Blood Trace H (Negative) Urine RBC 3-5 H (0-2) /HPF Short CBC 06/13/22 Range/Units 10:18 WBC 16.4 H (4.8-10.8) X10*3/uL Hgb 15.0 (14.0-18.0) g/dl Hct 46.7 (42.0-52.0) % Plt Count 288 (160-400) X10*3/uL BMP 06/13/22 10:36 Sodium 141 Potassium 4.7 Chloride 101 Carbon Dioxide 27 BUN 22 H Creatinine 1.01 Calcium 9.4 Liver Function 06/13/22 Range/Units 10:36 Total Bilirubin 1.4 H (0.0-1.0) mg/dL Direct Bilirubin 0.7 H (0.0-0.5) mg/dL AST 259 H (5-37) U/L ALT 241 H (0-40) U/L Alkaline Phosphatase 178 H (39-117) U/L Albumin 4.7 (3.5-5.0) g/dL Urine 06/13/22 Range/Units 14:14 Urine Color Yellow Urine Appearance Clear Urine pH 5.0 (5.0-9.0) Ur Specific [place] >= 1.030 H (1.005-1.025) Urine Protein 100 (2+) H (Neg-Trace) mg/dL Urine Glucose (UA) Negative (Negative) mg/dL All other labs normal. Imaging Abdomen CT scan report/results: report reviewed and image reviewed CT scan - pelvis: report reviewed and image reviewed Abdominal ultrasound report/results: pending and image reviewed EKG: report reviewed Assessment and Plan (1) Acute pancreatitis: Status: Acute (2) Gallstones: Status: Acute (3) Transaminitis: Status: Acute Plan In reviewing the CT, the patient has a significant amount of peripancreatic and retroperitoneal inflammation, therefore, he remains and risk for fluid shifts. Monitor urine output very closely and follow electrolytes. Trend [place] criteria data given the retroperitoneal inflammation. Would recommend GI consultation. CBD is measured at 5 mm on ultrasound, official report is pending. Patient may need MRCP or ERCP if there is evidence of choledocholithiasis or if the patient's labs do not normalize in an expected manner. Rapid normalization is typically seen in gallstone pancreatitis and the recommendation for cholecystectomy will be reviewed when the patient is medically stable. The patient states he does not drink, so alcohol-induced pancreatitis is less likely. Thank you for asking me to participate in his care. Procedures Date of Service Date of Service: 06/13/22
--- NOTE | 2022-06-13 16:03 | PHA.MEDREC ---
Pharmacy Consult ? Medication Reconciliation Pharmacy has completed the medication reconciliation.
[2022-06-13 16:14] LABS: ~Lactic Acid-LAB USE ONLY 3.9 mmol/L (0.5-2.0)
[2022-06-13] MEDS: Enoxaparin Sodium 40 MG/0.4 ML SYRINGE SUBCUT (16:21)
[2022-06-13] MEDS: 0.9 % Sodium Chloride Flush 3 ML SYRINGE IVFLUSH (16:21)
[2022-06-13] MEDS: Lactated Ringers 1,000 ML 150 ML IVCONT ×2 (16:21→22:51)
[2022-06-13 16:26] VITALS: BP 142/94; PULSE 89; RESP 14; O2SAT 95
--- NOTE | 2022-06-13 17:06 | MHC.CM.PN ---
Attempted to meet with patient for d/c planning, but pt was sleeping. Pt was just recently medicated for patient. Admitted with acute pancreatitis. Will attempt to meet with patient when awake.
--- NOTE | 2022-06-13 18:06 | PM.GICN ---
History of Present Illness Data of Consult Service Date: 06/13/22 Requesting physician: Yamile Almaguer Primary Care Provider: Woody Duvall MD [facility] Reason for consult: pancreatitis 61 year old male with history of htn, hld, gerd, and bph who I am seeing for assessment for abdominal pain He has noted on and off crampy RUQ pain for last sevral weeks worse with fatty foods. This time pain was much more severe 10/10 in severity and in RUQ without radiation, and occurred after eating ham tool grinder. He did have nausea but no vomiting. Pain can be worse with breathing and eased by anlagesics. No alcohol intake and no prior history of stomach or pancreas problems, had EGD within last 6 months at [facility] and told he had esophagitis. Labs: WBC 16.4. Lactic acid 2.8, improved to 2.3. Lipase 1948. AST 259, ALT 241, alk phos 178, total bili 1.4, direct bili 0.7. Glucose 218. Triglycerides 205 Imaging: CT abd/pelvis shows edematous changes predominantly surrounding the pancreas.? Ill-defined areas of hypodensity in the pancreas. US with gallstones, no cbd stones. Review of Systems Review of Systems: Constitutional : No Weight loss, No Fever, No Chills ENT/Mouth : No sore throat, No Rhinorrhea Eyes: No Swelling, No Redness Cardiovascular : No Chest Pain, No SOB, No Edema Respiratory : No Cough, No Sputum, No Wheezing Gastrointestinal : see HPI Genitourinary : NO Dysuria, No Urinary Frequency, No Hematuria, No Urgency Musculoskeletal : No joint pain, No Myalgias, No Joint Swelling Skin : No Skin Lesions, No rash Neuro : No Weakness, No Numbness, No Dizziness, No Headache Psych : No Anxiety/Panic, No Depression Heme/Lymph: No Bruising, No Lymphadenopathy Endocrine : No Polyuria, No Polydipsia All other systems reviewed and are negative. Constitutional: Constitutional: Reports as per [facility]PI [facility] Past Medical History Medical History BPH (benign prostatic hyperplasia) GERD (gastroesophageal reflux disease) HLD (hyperlipidemia) HTN (hypertension) Family History Family History Father [place] (myocardial infarction) Mother Diabetes HLD (hyperlipidemia) Social History Social History Alcohol intake: current Alcohol intake frequency: holidays/special occasions only Alcohol type: beer Patient Tobacco Use Status: Never used Tobacco Use of substances other than those prescribed or required for medical reasons: No Advance Directives: Yes Advance Directives Information Provided: Yes Advance Directives on File: No Meds Allergies Allergy/AdvReac Type Severity Reaction Status Date / Time No Known Allergies Allergy Verified 06/13/22 09:45 Active Medications: Current Medications Acetaminophen (Acetaminophen 325 Mg Tablet) 650 mg PO Q6H PRN PRN Reason: Pain, Mild (Pain Scale 1-3) Amlodipine Besylate (Amlodipine Besylate 5 Mg Tablet) 5 mg PO DAILY [facility] Atorvastatin Calcium (Atorvastatin Calcium 80 Mg Tablet) 80 mg PO DAILY [facility] Docusate Sodium (Docusate Sodium 100 Mg Capsule) 100 mg PO BID [facility] Enoxaparin Sodium (Enoxaparin Sodium 40 Mg/0.4 Ml Syringe) 40 mg SUBCUT Q24H [facility] Last Admin: 06/13/22 16:21 Dose: 40 mg Fluticasone Propionate (Fluticasone Propionate Nasal 16 Gm [place]) 2 spray NOSTRIL-B DAILY [facility] Hydromorphone HCl (Hydromorphone Hcl 1 Mg/Ml Syringe) 1 mg IVPUSH Q4H PRN; Protocol PRN Reason: Pain, Severe (Pain Scale 7-10) Lactated Ringer's (Lr) 1,000 mls @ 150 mls/hr IVCONT .Q6H40M [facility] Last Admin: 06/13/22 16:21 Dose: 150 mls/hr Lisinopril (Lisinopril 10 Mg Tablet) 10 mg PO DAILY [facility] Morphine Sulfate (Morphine Sulfate 4 Mg/Ml Cartridge) 1 mg IVPUSH Q4H PRN; Protocol PRN Reason: Pain, Moderate (Pain Scale 4-6 Omeprazole (Omeprazole 40 Mg Capsule.Dr) 40 mg PO DAILY@0600 [facility] Ondansetron HCl (Ondansetron Hcl 4 Mg/2 Ml Vial) 4 mg IVPUSH Q8H PRN PRN Reason: Nausea and Vomiting Pharmacy Consult (Consult Rx Perform Med Rec) 1 each MISCELLANE ONCE PRN PRN Reason: Consult order Sodium Chloride (0.9 % Sodium Chloride Flush 3 Ml Syringe) 3 ml IVFLUSH QSHIFT [facility] Last Admin: 06/13/22 16:21 Dose: 3 ml Tamsulosin HCl (Tamsulosin Hcl 0.4 Mg Capsule) 0.4 mg PO DAILY@1700 [facility] Home Medications Medication Instructions Recorded Confirmed Last Taken Type amlodipine 5 mg-benazepril 10 mg 1 cap PO DAILY 06/13/22 06/13/22 06/12/22 History capsule fluticasone propionate 50 2 spray intranasal DAILY 06/13/22 06/13/22 06/12/22 History mcg/actuation nasal spray,suspension omeprazole 40 mg capsule,delayed 1 cap PO DAILY 06/13/22 06/13/22 06/12/22 History release rosuvastatin 40 mg tablet 1 tab PO DAILY 06/13/22 06/13/22 06/12/22 History tamsulosin 0.4 mg capsule 1 cap PO DAILY 06/13/22 06/13/22 06/12/22 History Physical Exam Vital Signs: Vital Signs: Last Vital Signs Temp 97.5 F 06/13/22 09:57 Pulse 89 06/13/22 16:26 Resp 14 06/13/22 16:26 BP 142/94 H 06/13/22 16:26 Pulse Ox 95 06/13/22 16:26 O2 Del Method 06/13/22 16:26 BMI result Body Mass Index 32.8 Const: General: cooperative, healthy appearing, comfortable, no acute distress, well developed, alert, awake and acute distress Orientation/consciousness: patient oriented x3 HEENT: Head: Yes normal to inspection, Yes No palpable skull fracture present, Yes normocephalic, Yes atraumatic and No abrasion Eyes: General: appearance normal, both eyes and all related structures Neck: Neck: Yes normal visual inspection, Yes full ROM, Yes no lymphadenopathy, Yes no meningeal signs, Yes trachea midline, Yes supple, No anterior neck swelling and No tender Chest: Chest palpation & inspection: normal inspection of the chest and normal palpation of entire chest wall Resp: Effort & Inspection: normal respiratory effort and able to speak in complete sentences Cardio: Jugular venous distension: no JVD Heart sounds: S1 normal heart sound present and S2 normal heart sound present GI: Inspection: Yes normal to inspection and No abdominal wall ecchymosis Palpation (GI): Tenderness to palpation present (GI) (generalized), Guarding due to palpation present (GI) (generalized) and not rigid : General: No CVA tenderness and Yes no CVA tenderness Back/Spine/Pelvis: Back: no CVA tenderness, No CVA tenderness and No back tenderness Skin: General skin exam: no rashes or lesions noted and elasticity normal Neuro: General: patient oriented x3, gait normal, tone normal and no meningeal signs Cranial nerves: Yes CN's II-XII intact bilaterally Extrem: General: Yes normal to inspection and Yes full ROM Psych: Appearance: grossly normal, well kempt and not disheveled Results Labs CBC & Chem 7: 06/13/22 10:18 06/13/22 10:36 Labs: Short CBC 06/13/22 Range/Units 10:18 WBC 16.4 H (4.8-10.8) X10*3/uL Hgb 15.0 (14.0-18.0) g/dl Hct 46.7 (42.0-52.0) % Plt Count 288 (160-400) X10*3/uL BMP 06/13/22 10:36 Sodium 141 Potassium 4.7 Chloride 101 Carbon Dioxide 27 BUN 22 H Creatinine 1.01 Calcium 9.4 Liver Function 06/13/22 Range/Units 10:36 Total Bilirubin 1.4 H (0.0-1.0) mg/dL Direct Bilirubin 0.7 H (0.0-0.5) mg/dL AST 259 H (5-37) U/L ALT 241 H (0-40) U/L Alkaline Phosphatase 178 H (39-117) U/L Albumin 4.7 (3.5-5.0) g/dL Urine 06/13/22 Range/Units 14:14 Urine Color Yellow Urine Appearance Clear Urine pH 5.0 (5.0-9.0) Ur Specific [place] >= 1.030 H (1.005-1.025) Urine Protein 100 (2+) H (Neg-Trace) mg/dL Urine Glucose (UA) Negative (Negative) mg/dL Imaging CT scan - abdomen: Attestation: I personally reviewed and interpreted this imaging study as follows: My impression: edematous and swollen pancreas US - abdomen: Attestation: I personally reviewed and interpreted this imaging study as follows: My impression: gallstones in GB Assessment and Plan (1) Acute pancreatitis: Status: Acute (2) Gallstones: Status: Acute (3) Transaminitis: Status: Acute Plan 1/ Acute gallstone related interstitial pancreatitis, probably passed or is passing a stone PLAN: 1/ Cont to trend LFT< if rising then MRCP 2/ resuscitate with LR 3-4 L over 24 hrs 3/ early diet as tolerated and able 4/ cont with analgesia 5/ can add trental 400 mg tid may help by anit inflammatory action 6/ surgical consult Procedures Date of Service Date of Service: 06/13/22
[2022-06-13 18:27] VITALS: BP 156/94; PULSE 101; RESP 21; O2SAT 96
[2022-06-13] MEDS: HYDROmorphone HCl 1 MG/ML SYRINGE IVPUSH ×2 (18:28→22:52)
[2022-06-13 19:23] LABS: Potassium 4.9 mmol/L (3.3-5.1)
[2022-06-13 19:27] LABS: Lactic Acid 3.7 mmol/L (0.5-2.0)
[2022-06-13 21:05] LABS: Reflex Lactate? Lactic Acid Added
--- NOTE | 2022-06-13 21:23 | MHC.CM.PN ---
Pt continues to sleep soundly with pillow over head. CM will attempt to meet with patient when he wakes. CM to follow for d/c planning.
[2022-06-13 22:16] LABS: ~Lactic Acid-LAB USE ONLY 3.5 mmol/L (0.5-2.0)
[2022-06-13] MEDS: Docusate Sodium 100 MG CAPSULE PO (22:23)
--- NOTE | 2022-06-13 22:25 | PC.NURSE ---
Awaiting dose of Trental from pharmacy - they are sending a dose now
[2022-06-13] MEDS: Pentoxifylline ER 400 MG TABLET.ER PO (22:35)
--- NOTE | 2022-06-13 22:42 | MHC.CM.PN ---
Pt awake. CM met to review discharge planning. A&Ox4. In significant pain. Awaiting pain medication. RN aware. Acute Pancreatitis. Moderna x3/Pfizer x1. HCP/ Kasandra Allen ([phone]). Copy requested. Lives with . No DME/Services. D/C plan: home without services. with transport. CM to follow for discharge planning.
[2022-06-13 23:14] LABS: COVID-19 Test Negative (Negative); IDNOW Serial# 55D5AD1C
[2022-06-13 23:55] LABS: Reflex Lactate? 2 Y
[2022-06-13 23:57] VITALS: BP 128/80; PULSE 108; RESP 20; TEMP 36.7; O2SAT 93
[2022-06-14 00:36] LABS: ~Lactic Acid-LAB USE ONLY 3.6 mmol/L (0.5-2.0)
[2022-06-14 05:10] LABS: Estimated Average Glucose 114 mg/dL; Hemoglobin A1c % 5.6 %
[2022-06-14] MEDS: HYDROmorphone HCl 1 MG/ML SYRINGE IVPUSH ×6 (05:11→23:28)
[2022-06-14 05:15] VITALS: BP 153/62; PULSE 99; RESP 22; O2SAT 93
[2022-06-14] MEDS: Lactated Ringers 1,000 ML 150 ML IVCONT ×4 (05:23→21:42)
[2022-06-14] MEDS: Omeprazole 40 MG CAPSULE.DR PO (05:23)
[2022-06-14 06:14] VITALS: BP 159/88; PULSE 102; RESP 20; TEMP 36.4; O2SAT 96
[2022-06-14 06:52] VITALS: BP 149/75; PULSE 104; RESP 18; TEMP 36.1; O2SAT 94
--- NOTE | 2022-06-14 07:04 | PM.PNGS ---
Subjective Subjective Date of Service: 06/14/22 Patient reports: still having pain, no flatus and no bowel movement Interval history: Is about the same as last night when he was admitted. He notes that he has been placed on oxygen but does denies feeling short of breath. He has not voided urine since being admitted to [facility]. He denies any vomiting but reports nausea and denies any new complaints of headache, visual disturbances numbness or tingling in his hands and feet or focal neurologic symptoms Physical Exam Vital Signs: Vital Signs: Last Vital Signs Temp 97 F 06/14/22 06:52 Pulse 104 H 06/14/22 06:52 Resp 18 06/14/22 06:52 BP 149/75 H 06/14/22 06:52 Pulse Ox 94 06/14/22 06:52 O2 Del Method 06/14/22 06:52 O2 Flow Rate 2 06/14/22 06:52 BMI result Body Mass Index 32.8 Patient is nontoxic He appears more comfortable than when I saw him yesterday Sclera remain anicteric NC/AT, PERRLA, EOMI Abdomen is obese and soft with epigastric tenderness with no peritoneal sign to percussion. His exam is probably a little better than yesterday when I saw him in the emergency department Lower extremities are free of cyanosis clubbing edema Objective Data Active Medications Acetaminophen (Acetaminophen 325 Mg Tablet) 650 mg PO Q6H PRN PRN Reason: Pain, Mild (Pain Scale 1-3) Amlodipine Besylate (Amlodipine Besylate 5 Mg Tablet) 5 mg PO DAILY [facility] Atorvastatin Calcium (Atorvastatin Calcium 80 Mg Tablet) 80 mg PO DAILY [facility] Docusate Sodium (Docusate Sodium 100 Mg Capsule) 100 mg PO BID [facility] Last Admin: 06/13/22 22:23 Dose: 100 mg Documented By: VIRGINIA Enoxaparin Sodium (Enoxaparin Sodium 40 Mg/0.4 Ml Syringe) 40 mg SUBCUT Q24H [facility] Last Admin: 06/13/22 16:21 Dose: 40 mg Documented By: GINA Fluticasone Propionate (Fluticasone Propionate Nasal 16 Gm [place]) 2 spray NOSTRIL-B DAILY [facility] Hydromorphone HCl (Hydromorphone Hcl 1 Mg/Ml Syringe) 1 mg IVPUSH Q4H PRN; Protocol PRN Reason: Pain, Severe (Pain Scale 7-10) Last Admin: 06/14/22 05:11 Dose: 1 mg Documented By: VIRGINIA Lactated Ringer's (Lr) 1,000 mls @ 150 mls/hr IVCONT .Q6H40M [facility] Last Admin: 06/14/22 05:23 Dose: 150 mls/hr Documented By: VIRGINIA Lisinopril (Lisinopril 10 Mg Tablet) 10 mg PO DAILY [facility] Morphine Sulfate (Morphine Sulfate 4 Mg/Ml Cartridge) 1 mg IVPUSH Q4H PRN; Protocol PRN Reason: Pain, Moderate (Pain Scale 4-6 Omeprazole (Omeprazole 40 Mg Capsule.Dr) 40 mg PO DAILY@0600 [facility] Last Admin: 06/14/22 05:23 Dose: 40 mg Documented By: VIRGINIA Ondansetron HCl (Ondansetron Hcl 4 Mg/2 Ml Vial) 4 mg IVPUSH Q8H PRN PRN Reason: Nausea and Vomiting Pentoxifylline (Pentoxifylline Er 400 Mg Tablet.Er) 400 mg PO TID [facility] Last Admin: 06/13/22 22:35 Dose: 400 mg Documented By: VIRGINIA Pharmacy Consult (Consult Rx Perform Med Rec) 1 each MISCELLANE ONCE PRN PRN Reason: Consult order Sodium Chloride (0.9 % Sodium Chloride Flush 3 Ml Syringe) 3 ml IVFLUSH QSHIFT [facility] Last Admin: 06/14/22 06:33 Dose: Not Given Documented By: LINDSEY Non-Admin Reason: IV Running Tamsulosin HCl (Tamsulosin Hcl 0.4 Mg Capsule) 0.4 mg PO DAILY@1700 [facility] Labs CBC & Chem 7: 06/14/22 08:52 06/14/22 08:52 Labs: Laboratory Results - last 24 hr 06/13/22 06/13/22 06/13/22 10:18 10:36 10:36 MCV 81.1 MCH 26.0 L MCHC 32.1 RDW 14.4 Plt Count 288 MPV 9.9 Immature Gran % (Auto) 0.6 H Neut % (Auto) 90.0 H Lymph % (Auto) 3.5 L [place] % (Auto) 5.6 Eos % (Auto) 0.1 Baso % (Auto) 0.2 Lymph # (Auto) 0.6 L [place] # (Auto) 0.9 Eos # (Auto) 0.0 Baso # (Auto) 0.0 Abs Immat Gran (auto) 0.10 H Absolute Neuts (auto) 14.8 H Absolute Nucleated RBC 0.000 Nucleated RBC % (auto) 0.0 Anion Gap 18 Estim Creat Clear Calc 83.4 Estimated GFR > 60 Random Glucose 218 H Estimat Average Glucose Cancelled Hemoglobin A1c % Cancelled Lactic Acid Lactic Acid F/U @ 2Hr Lactic Acid F/U @ 4Hr Calcium 9.4 Total Bilirubin 1.4 H Direct Bilirubin 0.7 H AST 259 H ALT 241 H Alkaline Phosphatase 178 H Total Protein 7.5 Albumin 4.7 Triglycerides 202 Lipase 1948 H Urine Color Urine Appearance Urine pH Ur Specific [place] Urine Protein Urine Glucose (UA) Urine Ketones Urine Blood Urine Nitrite Ur Leukocyte Esterase Urine RBC Urine WBC Ur Squamous Epith Cells Urine Bacteria Hyaline Casts COVID-19 (BILLY) COVID-19 Clin Com 06/13/22 06/13/22 06/13/22 11:00 13:39 14:14 MCV MCH MCHC RDW Plt Count MPV Immature Gran % (Auto) Neut % (Auto) Lymph % (Auto) [place] % (Auto) Eos % (Auto) Baso % (Auto) Lymph # (Auto) [place] # (Auto) Eos # (Auto) Baso # (Auto) Abs Immat Gran (auto) Absolute Neuts (auto) Absolute Nucleated RBC Nucleated RBC % (auto) Anion Gap Estim Creat Clear Calc Estimated GFR Random Glucose Estimat Average Glucose Hemoglobin A1c % Lactic Acid 2.8 H* Lactic Acid F/U @ 2Hr 2.3 H* Lactic Acid F/U @ 4Hr Calcium Total Bilirubin Direct Bilirubin AST ALT Alkaline Phosphatase Total Protein Albumin Triglycerides Lipase Urine Color Yellow Urine Appearance Clear Urine pH 5.0 Ur Specific [place] >= 1.030 H Urine Protein 100 (2+) H Urine Glucose (UA) Negative Urine Ketones Negative Urine Blood Trace H Urine Nitrite Negative Ur Leukocyte Esterase Negative Urine RBC 3-5 H Urine WBC 0-5 Ur Squamous Epith Cells 0-2 Urine Bacteria None Seen Hyaline Casts 0-2 COVID-19 (BILLY) COVID-19 Clin Com 06/13/22 06/13/22 06/13/22 15:51 19:00 19:00 MCV MCH MCHC RDW Plt Count MPV Immature Gran % (Auto) Neut % (Auto) Lymph % (Auto) [place] % (Auto) Eos % (Auto) Baso % (Auto) Lymph # (Auto) [place] # (Auto) Eos # (Auto) Baso # (Auto) Abs Immat Gran (auto) Absolute Neuts (auto) Absolute Nucleated RBC Nucleated RBC % (auto) Anion Gap Estim Creat Clear Calc Estimated GFR Random Glucose Estimat Average Glucose 114 Hemoglobin A1c % 5.6 Lactic Acid 3.7 H* Lactic Acid F/U @ 2Hr Lactic Acid F/U @ 4Hr 3.9 H* Calcium Total Bilirubin Direct Bilirubin AST ALT Alkaline Phosphatase Total Protein Albumin Triglycerides Lipase Urine Color Urine Appearance Urine pH Ur Specific [place] Urine Protein Urine Glucose (UA) Urine Ketones Urine Blood Urine Nitrite Ur Leukocyte Esterase Urine RBC Urine WBC Ur Squamous Epith Cells Urine Bacteria Hyaline Casts COVID-19 (BILLY) COVID-[employer] 06/13/22 06/13/22 06/14/22 21:52 22:51 00:14 MCV MCH MCHC RDW Plt Count MPV Immature Gran % (Auto) Neut % (Auto) Lymph % (Auto) [place] % (Auto) Eos % (Auto) Baso % (Auto) Lymph # (Auto) [place] # (Auto) Eos # (Auto) Baso # (Auto) Abs Immat Gran (auto) Absolute Neuts (auto) Absolute Nucleated RBC Nucleated RBC % (auto) Anion Gap Estim Creat Clear Calc Estimated GFR Random Glucose Estimat Average Glucose Hemoglobin A1c % Lactic Acid Lactic Acid F/U @ 2Hr 3.5 H* Lactic Acid F/U @ 4Hr 3.6 H* Calcium Total Bilirubin Direct Bilirubin AST ALT Alkaline Phosphatase Total Protein Albumin Triglycerides Lipase Urine Color Urine Appearance Urine pH Ur Specific [place] Urine Protein Urine Glucose (UA) Urine Ketones Urine Blood Urine Nitrite Ur Leukocyte Esterase Urine RBC Urine WBC Ur Squamous Epith Cells Urine Bacteria Hyaline Casts COVID-19 (BILLY) Negative COVID-19 [employer] See Note Procedures Date of Service Date of Service: 06/14/22 Progress Note: A&P Assessment and plan (1) Acute pancreatitis: Status: Acute (2) Epigastric pain: Status: Acute (3) Transaminitis: Status: Acute (4) Gallstones: Status: Acute (5) Hyperlipidemia: Status: Acute Plan Continue NPO Check labs; the patient came in with moderate-severe pancreatitis based on Rachel criteria and is at significant risk for fluid shifts/ 3rd spacing and related electrolyte anomalies, especially hypocalcemia. Patient has not voided urine since getting to the floor. A Bojorquez catheter may be helpful and directing his resuscitation if his lactic acid remains elevated. Will discuss cholecystectomy when he is medically stable Time Spent With Patient Time: Total time spent is greater than 50% in coordination of care (as documented) at patient's floor/unit and/or counseling patient: Quality Stroke Does the patient have a stroke diagnosis?: No VTE Prior VTE?: No VTE Risk Level:: Medical - moderate - high VTE Device Contraindication: Treatment Not Indicated VTE Drug Contraindication: N/A - Med Ordered
[2022-06-14] MEDS: amLODIPine Besylate 5 MG TABLET PO (08:33)
[2022-06-14] MEDS: lisinopriL 10 MG TABLET PO (08:33)
[2022-06-14] MEDS: Docusate Sodium 100 MG CAPSULE PO ×2 (08:33→19:54)
[2022-06-14] MEDS: Morphine Sulfate 4 MG/ML CARTRIDGE 1 MG IVPUSH (08:34)
[2022-06-14 09:12] LABS: Basophils Absolute Auto 0.1 X10*3/uL (0.0-0.2); Basophils Percent Auto 0.2 % (0-2); Eosinophils Absolute Auto 0.1 X10*3/uL (0.0-0.4); Eosinophils Percent Auto 0.3 % (0-4); Hematocrit 44.5 % (42.0-52.0); Hemoglobin 14.3 g/dl (14.0-18.0); Imm Gran Abs Auto 0.34 X10*3/uL (0.00-0.03); Imm Gran Pct Auto 1.1 % (0.0-0.4); Lymphocytes Absolute Auto 1.4 X10*3/uL (1.2-4.9); Lymphocytes Percent Auto 4.4 % (20-40); MANUAL DIFF FLAG SCAN; Mean Corpuscular HGB Conc 32.1 g/dl (31.0-36.0); Mean Corpuscular Hemoglobin 26.3 pg (27.0-33.0); Mean Platelet Volume 10.2 fL (9.4-12.4); Monocytes Absolute Auto 2.2 X10*3/uL (0.1-1.2); Neutrophils Absolute Auto 27.3 x10*3/uL (2.0-8.3); Platelet Count 251 X10*3/uL (160-400); Red Blood Count 5.43 X10*6/uL (4.60-5.80); Red Cell Distribution Width 15.4 % (11.0-16.0); SCAN SMEAR FLAG 1
[2022-06-14 09:17] LABS: White Blood Count 31.3 X10*3/uL (4.8-10.8)
[2022-06-14 09:45] LABS: Alanine Aminotransferase 100 U/L (0-40); Albumin Level 3.3 g/dL (3.5-5.0); Alkaline Phosphatase 107 U/L (39-117); Anion Gap 20 (12-20); Aspartate Amino Transferase 52 U/L (5-37); Bilirubin Total 0.9 mg/dL (0.0-1.0); Blood Urea Nitrogen 37 mg/dL (9-16); Calcium 8.3 mg/dL (8.4-10.2); Carbon Dioxide 20 mmol/L (22-29); Chloride 102 mmol/L (96-108); Creatinine Clr Calc Pharmacy 80.2; Estimated Glomerular Filt Rate > 60; Glucose Random 117 mg/dL (60-115); Potassium 4.8 mmol/L (3.3-5.1); Sodium 137 mmol/L (135-145); Total Protein 5.6 g/dL (6.5-8.0)
[2022-06-14 09:51] LABS: Lipase 1474 U/L (8-78)
[2022-06-14 10:08] LABS: SLIDE REVIEW VERIFIED
[2022-06-14 11:07] VITALS: BP 143/67; PULSE 104; RESP 16; TEMP 36.6; O2SAT 97
--- NOTE | 2022-06-14 11:37 | P.PNIM_ITS ---
Subjective Subjective Date of Service: 06/14/22 Interval History: cc: abd pain interval history:ongoing pain Cardiovascular Cardiovascular: Reports no additional cardiovascular complaints Respiratory Respiratory: Reports no additional respiratory complaints Physical Exam Vital Signs: Vital Signs: Last Vital Signs Temp 98 F 06/14/22 11:07 Pulse 104 H 06/14/22 11:07 Resp 16 06/14/22 11:07 BP 143/67 H 06/14/22 11:07 Pulse Ox 97 06/14/22 11:07 O2 Del Method 06/14/22 11:07 O2 Flow Rate 2 06/14/22 06:52 BMI result Body Mass Index 32.8 General: AO X 3, in pain Resp: CTA bilateral, no accessory muscles used CVS: S1,S2,RRR GI: soft, tender, non distended Neuro: motor grossly intact, alert Psych: appropriate affect, appropriate insight Objective Data Active Medications Acetaminophen (Acetaminophen 325 Mg Tablet) 650 mg PO Q6H PRN PRN Reason: Pain, Mild (Pain Scale 1-3) Amlodipine Besylate (Amlodipine Besylate 5 Mg Tablet) 5 mg PO DAILY [facility] Last Admin: 06/14/22 08:33 Dose: 5 mg Documented By: LINDSEY Atorvastatin Calcium (Atorvastatin Calcium 80 Mg Tablet) 80 mg PO DAILY [facility] Docusate Sodium (Docusate Sodium 100 Mg Capsule) 100 mg PO BID [facility] Last Admin: 06/14/22 08:33 Dose: 100 mg Documented By: LINDSEY Enoxaparin Sodium (Enoxaparin Sodium 40 Mg/0.4 Ml Syringe) 40 mg SUBCUT Q24H [facility] Last Admin: 06/13/22 16:21 Dose: 40 mg Documented By: GINA Fluticasone Propionate (Fluticasone Propionate Nasal 16 Gm [place]) 2 spray NOSTRIL-B DAILY [facility] Last Admin: 06/14/22 08:33 Dose: Not Given Documented By: LINDSEY Non-Admin Reason: Med Not Available Hydromorphone HCl (Hydromorphone Hcl 1 Mg/Ml Syringe) 1 mg IVPUSH Q2H PRN; Protocol PRN Reason: Pain, Severe (Pain Scale 7-10) Last Admin: 06/14/22 10:14 Dose: 1 mg Documented By: LINDSEY Lactated Ringer's (Lr) 1,000 mls @ 150 mls/hr IVCONT .Q6H40M [facility] Last Admin: 06/14/22 05:23 Dose: 150 mls/hr Documented By: VIRGINIA Lisinopril (Lisinopril 10 Mg Tablet) 10 mg PO DAILY [facility] Last Admin: 06/14/22 08:33 Dose: 10 mg Documented By: LINDSEY Omeprazole (Omeprazole 40 Mg Capsule.Dr) 40 mg PO DAILY@0600 [facility] Last Admin: 06/14/22 05:23 Dose: 40 mg Documented By: VIRGINIA Ondansetron HCl (Ondansetron Hcl 4 Mg/2 Ml Vial) 4 mg IVPUSH Q8H PRN PRN Reason: Nausea and Vomiting Pentoxifylline (Pentoxifylline Er 400 Mg Tablet.Er) 400 mg PO TID [facility] Last Admin: 06/13/22 22:35 Dose: 400 mg Documented By: VIRGINIA Pharmacy Consult (Consult Rx Perform Med Rec) 1 each MISCELLANE ONCE PRN PRN Reason: Consult order Sodium Chloride (0.9 % Sodium Chloride Flush 3 Ml Syringe) 3 ml IVFLUSH QSHIFT [facility] Last Admin: 06/14/22 06:33 Dose: Not Given Documented By: LINDSEY Non-Admin Reason: IV Running Tamsulosin HCl (Tamsulosin Hcl 0.4 Mg Capsule) 0.4 mg PO DAILY@1700 [facility] Labs CBC & Chem 7: 06/14/22 08:52 06/14/22 08:52 Labs: Laboratory Results - last 24 hr 06/13/22 06/13/22 06/13/22 10:36 10:36 13:39 MCV MCH MCHC RDW Plt Count MPV Immature Gran % (Auto) Neut % (Auto) Lymph % (Auto) [place] % (Auto) Eos % (Auto) Baso % (Auto) Lymph # (Auto) [place] # (Auto) Eos # (Auto) Baso # (Auto) Abs Immat Gran (auto) Absolute Neuts (auto) Absolute Nucleated RBC Nucleated RBC % (auto) Smear Tech's Comments Anion Gap Estim Creat Clear Calc Estimated GFR Random Glucose Estimat Average Glucose Cancelled Hemoglobin A1c % Cancelled Lactic Acid Lactic Acid F/U @ 2Hr 2.3 H* Lactic Acid F/U @ 4Hr Calcium Total Bilirubin AST ALT Alkaline Phosphatase Total Protein Albumin Triglycerides 202 Lipase 1948 H Urine Color Urine Appearance Urine pH Ur Specific [place] Urine Protein Urine Glucose (UA) Urine Ketones Urine Blood Urine Nitrite Ur Leukocyte Esterase Urine RBC Urine WBC Ur Squamous Epith Cells Urine Bacteria Hyaline Casts COVID-19 (BILLY) COVID-19 Clin Com 06/13/22 06/13/22 06/13/22 14:14 15:51 19:00 MCV MCH MCHC RDW Plt Count MPV Immature Gran % (Auto) Neut % (Auto) Lymph % (Auto) [place] % (Auto) Eos % (Auto) Baso % (Auto) Lymph # (Auto) [place] # (Auto) Eos # (Auto) Baso # (Auto) Abs Immat Gran (auto) Absolute Neuts (auto) Absolute Nucleated RBC Nucleated RBC % (auto) Smear Tech's Comments Anion Gap Estim Creat Clear Calc Estimated GFR Random Glucose Estimat Average Glucose Hemoglobin A1c % Lactic Acid 3.7 H* Lactic Acid F/U @ 2Hr Lactic Acid F/U @ 4Hr 3.9 H* Calcium Total Bilirubin AST ALT Alkaline Phosphatase Total Protein Albumin Triglycerides Lipase Urine Color Yellow Urine Appearance Clear Urine pH 5.0 Ur Specific [place] >= 1.030 H Urine Protein 100 (2+) H Urine Glucose (UA) Negative Urine Ketones Negative Urine Blood Trace H Urine Nitrite Negative Ur Leukocyte Esterase Negative Urine RBC 3-5 H Urine WBC 0-5 Ur Squamous Epith Cells 0-2 Urine Bacteria None Seen Hyaline Casts 0-2 COVID-19 (BILLY) COVID-19 Clin Com 06/13/22 06/13/22 06/13/22 19:00 21:52 22:51 MCV MCH MCHC RDW Plt Count MPV Immature Gran % (Auto) Neut % (Auto) Lymph % (Auto) [place] % (Auto) Eos % (Auto) Baso % (Auto) Lymph # (Auto) [place] # (Auto) Eos # (Auto) Baso # (Auto) Abs Immat Gran (auto) Absolute Neuts (auto) Absolute Nucleated RBC Nucleated RBC % (auto) Smear Tech's Comments Anion Gap Estim Creat Clear Calc Estimated GFR Random Glucose Estimat Average Glucose 114 Hemoglobin A1c % 5.6 Lactic Acid Lactic Acid F/U @ 2Hr 3.5 H* Lactic Acid F/U @ 4Hr Calcium Total Bilirubin AST ALT Alkaline Phosphatase Total Protein Albumin Triglycerides Lipase Urine Color Urine Appearance Urine pH Ur Specific [place] Urine Protein Urine Glucose (UA) Urine Ketones Urine Blood Urine Nitrite Ur Leukocyte Esterase Urine RBC Urine WBC Ur Squamous Epith Cells Urine Bacteria Hyaline Casts COVID-19 (BILLY) Negative COVID-19 Clin Com See Note 06/14/22 06/14/22 06/14/22 00:14 08:52 08:52 MCV 82.0 MCH 26.3 L MCHC 32.1 RDW 15.4 Plt Count 251 MPV 10.2 Immature Gran % (Auto) 1.1 H Neut % (Auto) 87.0 H Lymph % (Auto) 4.4 L [place] % (Auto) 7.0 Eos % (Auto) 0.3 Baso % (Auto) 0.2 Lymph # (Auto) 1.4 [place] # (Auto) 2.2 H Eos # (Auto) 0.1 Baso # (Auto) 0.1 Abs Immat Gran (auto) 0.34 H Absolute Neuts (auto) 27.3 H Absolute Nucleated RBC 0.000 Nucleated RBC % (auto) 0.0 Smear Tech's Comments VERIFIED Anion Gap 20 Estim Creat Clear Calc 80.2 Estimated GFR > 60 Random Glucose 117 H D Estimat Average Glucose Hemoglobin A1c % Lactic Acid Lactic Acid F/U @ 2Hr Lactic Acid F/U @ 4Hr 3.6 H* Calcium 8.3 L D Total Bilirubin 0.9 AST 52 H ALT 100 H Alkaline Phosphatase 107 D Total Protein 5.6 L D Albumin 3.3 L D Triglycerides Lipase 1474 H Urine Color Urine Appearance Urine pH Ur Specific [place] Urine Protein Urine Glucose (UA) Urine Ketones Urine Blood Urine Nitrite Ur Leukocyte Esterase Urine RBC Urine WBC Ur Squamous Epith Cells Urine Bacteria Hyaline Casts COVID-19 (BILLY) COVID-19 Clin Com Assessment and Plan (1) Acute pancreatitis: Status: Acute Plan 61-year-old male with past medical history of hypertension, hyperlipidemia, GERD, BPH presented with abdominal pain, found to have acute pancreatitis Acute pancreatitis Likely gallstone Continue IV Dilaudid, IV hydration Still in significant pain will continue NPO Monitor LFTs, wbc's Hypertension Continue amlodipine and CHINEDU-inhibitor Hyperlipidemia will hold statin incase drug associated pancreatitis GERD PPI BPH flomax dvt prophylaxis - lovenox full code reason for continued hospitalization:iv hydration for pancreatitis Quality Stroke Does the patient have a stroke diagnosis?: No VTE Prior VTE?: No VTE Risk Level:: Medical - moderate - high VTE Device Contraindication: Treatment Not Indicated VTE Drug Contraindication: N/A - Med Ordered
--- NOTE | 2022-06-14 14:08 | MHC.CM.PN ---
PER PHYSICIAN ROUNDS, PATIENT IS STILL ACUTE. NO DC TODAY CASE MANAGEMENT FOLLOWING PLAN IS CURRENTLY HOME WITH NO NEED FOR SERVICES
[2022-06-14] MEDS: Pentoxifylline ER 400 MG TABLET.ER PO ×2 (14:25→19:54)
[2022-06-14] MEDS: Ampicillin Sodium/Sulbactam Na 3 GM in 0.9 % Sodium Chloride 100 ML IV ×2 (14:25→21:35)
[2022-06-14] MEDS: Enoxaparin Sodium 40 MG/0.4 ML SYRINGE SUBCUT (14:25)
[2022-06-14 15:37] VITALS: BP 144/72; PULSE 104; RESP 19; TEMP 37.4; O2SAT 92
[2022-06-14] MEDS: Tamsulosin HCL 0.4 MG CAPSULE PO (15:46)
--- NOTE | 2022-06-14 18:31 | P.PNGI_ITS ---
Subjective Subjective Date of Service: 06/14/22 Interval History: Got 4 L of fluid, BUN still went higher, making small amounts of urine pain improving, sleeping better not really passing gas managing clears Critical Care Time (minutes): 0 Physical Exam Vital Signs: Vital Signs: Last Vital Signs Temp 99.3 F 06/14/22 15:37 Pulse 104 H 06/14/22 15:37 Resp 19 06/14/22 15:37 BP 144/72 H 06/14/22 15:37 Pulse Ox 92 06/14/22 15:37 O2 Del Method 06/14/22 15:37 O2 Flow Rate 2 06/14/22 06:52 BMI result Body Mass Index 32.8 EXAM: GENERAL: The patient is well developed and nontoxic. VITAL SIGNS:see workflow HEENT: Nonicteric sclerae, PERRLA, EOMI. Oropharynx clear. Moist mucous membranes. Conjunctivae appear well perfused. No thyroid mass. CHEST: Chest wall is nontender. HEART: Regular rate and rhythm without murmurs. LUNGS: Clear to auscultation bilaterally. ABDOMEN: Soft, positive bowel sounds, tender epigastrium and RUQ, no organomegaly.no flank tenderness SKIN: No rash, no excessive bruising, petechiae, or purpura. NEUROLOGIC: Cranial nerves II-XII intact without motor/sensory deficit. psych-nml affect Objective Data Labs CBC & Chem 7: 06/14/22 08:52 06/14/22 08:52 Labs: Laboratory Results - last 24 hr 06/13/22 06/13/22 06/13/22 19:00 19:00 19:00 WBC RBC Hgb Hct MCV MCH MCHC RDW Plt Count MPV Immature Gran % (Auto) Neut % (Auto) Lymph % (Auto) [place] % (Auto) Eos % (Auto) Baso % (Auto) Lymph # (Auto) [place] # (Auto) Eos # (Auto) Baso # (Auto) Abs Immat Gran (auto) Absolute Neuts (auto) Absolute Nucleated RBC Nucleated RBC % (auto) Smear Tech's Comments Sodium Potassium 4.9 Chloride Carbon Dioxide Anion Gap BUN Creatinine Estim Creat Clear Calc Estimated GFR Random Glucose Estimat Average Glucose 114 Hemoglobin A1c % 5.6 Lactic Acid 3.7 H* Lactic Acid F/U @ 2Hr Lactic Acid F/U @ 4Hr Calcium Total Bilirubin AST ALT Alkaline Phosphatase Total Protein Albumin Lipase COVID-19 (BILLY) COVID-19 Clin Com 06/13/22 06/13/22 06/14/22 21:52 22:51 00:14 WBC RBC Hgb Hct MCV MCH MCHC RDW Plt Count MPV Immature Gran % (Auto) Neut % (Auto) Lymph % (Auto) [place] % (Auto) Eos % (Auto) Baso % (Auto) Lymph # (Auto) [place] # (Auto) Eos # (Auto) Baso # (Auto) Abs Immat Gran (auto) Absolute Neuts (auto) Absolute Nucleated RBC Nucleated RBC % (auto) Smear Tech's Comments Sodium Potassium Chloride Carbon Dioxide Anion Gap BUN Creatinine Estim Creat Clear Calc Estimated GFR Random Glucose Estimat Average Glucose Hemoglobin A1c % Lactic Acid Lactic Acid F/U @ 2Hr 3.5 H* Lactic Acid F/U @ 4Hr 3.6 H* Calcium Total Bilirubin AST ALT Alkaline Phosphatase Total Protein Albumin Lipase COVID-19 (BILLY) Negative COVID-19 Clin Com See Note 06/14/22 06/14/22 08:52 08:52 WBC 31.3 H* RBC 5.43 Hgb 14.3 Hct 44.5 MCV 82.0 MCH 26.3 L MCHC 32.1 RDW 15.4 Plt Count 251 MPV 10.2 Immature Gran % (Auto) 1.1 H Neut % (Auto) 87.0 H Lymph % (Auto) 4.4 L [place] % (Auto) 7.0 Eos % (Auto) 0.3 Baso % (Auto) 0.2 Lymph # (Auto) 1.4 [place] # (Auto) 2.2 H Eos # (Auto) 0.1 Baso # (Auto) 0.1 Abs Immat Gran (auto) 0.34 H Absolute Neuts (auto) 27.3 H Absolute Nucleated RBC 0.000 Nucleated RBC % (auto) 0.0 Smear Tech's Comments VERIFIED Sodium 137 Potassium 4.8 Chloride 102 Carbon Dioxide 20 L Anion Gap 20 BUN 37 H D Creatinine 1.05 Estim Creat Clear Calc 80.2 Estimated GFR > 60 Random Glucose 117 H D Estimat Average Glucose Hemoglobin A1c % Lactic Acid Lactic Acid F/U @ 2Hr Lactic Acid F/U @ 4Hr Calcium 8.3 L D Total Bilirubin 0.9 AST 52 H ALT 100 H Alkaline Phosphatase 107 D Total Protein 5.6 L D Albumin 3.3 L D Lipase 1474 H COVID-19 (BILLY) COVID-19 Clin Com Microbiology Microbiology Results: Microbiology 06/13/22 11:00 Blood - Venous Blood Culture - Preliminary No growth after 24 hours. 06/13/22 11:00 Blood - Venous Blood Culture - Preliminary No growth after 24 hours. Procedures Date of Service Date of Service: 06/14/22 Progress Note: A&P Assessment and plan (1) Acute pancreatitis: Status: Acute (2) Gallstones: Status: Acute Plan 1/ Acute pancreatitis, BISAP score 2 (score of 5 =22% mortality), caused by gallstones, rising WCC maybe due to intense secodnary inflammation or possibly cholecystitis. PLAN: 1/ Cont aggressive fluid resuscitation aiming for 2-3 L over next 24 hrs, might need central line and jVP meausrements to guide this if worsening BUN etc 2/ would add antibiotics in case of concomitant cholecystitis. 3/ allow PO intake and advance as tolerated, early nutrition associated with bet ter outcomes 4/ can use trental 400 mg TID, may help reduce inflammation and LOS Time Spent With Patient Time: Total time spent is greater than 50% in coordination of care (as documented) at patient's floor/unit and/or counseling patient: Quality Stroke Does the patient have a stroke diagnosis?: No VTE Prior VTE?: No VTE Risk Level:: Medical - moderate - high VTE Device Contraindication: Treatment Not Indicated VTE Drug Contraindication: N/A - Med Ordered
[2022-06-14 19:33] VITALS: BP 150/74; PULSE 110; RESP 19; TEMP 37.5; O2SAT 90
[2022-06-15] VITALS (7 sets, daily range): BP systolic 146–190; BP diastolic 75–90; PULSE 102–110; RESP 18–22; TEMP 36–37.2; O2SAT 92–95
[2022-06-15] MEDS: Lactated Ringers 1,000 ML 150 ML IVCONT (05:26)
[2022-06-15] MEDS: HYDROmorphone HCl 1 MG/ML SYRINGE IVPUSH ×2 (05:26→08:26)
[2022-06-15] MEDS: Ampicillin Sodium/Sulbactam Na 3 GM in 0.9 % Sodium Chloride 100 ML IV ×3 (05:26→20:57)
[2022-06-15 06:20] LABS: Hematocrit 37.7 % (42.0-52.0); Mean Corpuscular HGB Conc 31.8 g/dl (31.0-36.0); Mean Corpuscular Hemoglobin 26.5 pg (27.0-33.0); Mean Corpuscular Volume 83.2 fL (80.0-98.0); Mean Platelet Volume 10.7 fL (9.4-12.4); Platelet Count 205 X10*3/uL (160-400); Red Blood Count 4.53 X10*6/uL (4.60-5.80); Red Cell Distribution Width 15.5 % (11.0-16.0); White Blood Count 28.6 X10*3/uL (4.8-10.8)
[2022-06-15 06:36] LABS: Alanine Aminotransferase 66 U/L (0-40); Albumin Level 3.1 g/dL (3.5-5.0); Alkaline Phosphatase 87 U/L (39-117); Anion Gap 15 (12-20); Aspartate Amino Transferase 46 U/L (5-37); Bilirubin Direct 0.6 mg/dL (0.0-0.5); Bilirubin Total 1.4 mg/dL (0.0-1.0); Blood Urea Nitrogen 38 mg/dL (9-16); Carbon Dioxide 26 mmol/L (22-29); Chloride 99 mmol/L (96-108); Creatinine Clr Calc Pharmacy 91.5; Estimated Glomerular Filt Rate > 60; Glucose Fasting 83 mg/dL (60-99); Potassium 4.4 mmol/L (3.3-5.1); Sodium 136 mmol/L (135-145); Total Protein 5.2 g/dL (6.5-8.0)
--- NOTE | 2022-06-15 08:12 | PM.PNGS ---
Subjective Subjective Date of Service: 06/15/22 Patient reports: still having pain, no flatus and no bowel movement Interval history: Patient reports he is about the same as yesterday. He continues to endorse significant pain and is requesting adjustment of his medications which is deferred to the primary service. He otherwise denies difficulty breathing, shortness of breath or neurologic symptoms. Physical Exam Vital Signs: Vital Signs: Last Vital Signs Temp 97.9 F 06/15/22 06:55 Pulse 102 H 06/15/22 06:55 Resp 20 06/15/22 06:55 BP 184/82 H 06/15/22 07:06 Pulse Ox 94 06/15/22 06:55 O2 Del Method 06/15/22 06:55 O2 Flow Rate 2 06/15/22 06:55 BMI result Body Mass Index 32.8 Patient appears as comfortable as yesterday He is nontoxic and not in extremis Sclera anicteric Abdomen is obese and diffusely tender with mild peritoneal irritation to percussion. Pain is predominantly localized in the upper abdomen Objective Data Active Medications Acetaminophen (Acetaminophen 325 Mg Tablet) 650 mg PO Q6H PRN PRN Reason: Pain, Mild (Pain Scale 1-3) Amlodipine Besylate (Amlodipine Besylate 5 Mg Tablet) 5 mg PO DAILY [facility] Last Admin: 06/14/22 08:33 Dose: 5 mg Documented By: LINDSEY Docusate Sodium (Docusate Sodium 100 Mg Capsule) 100 mg PO BID [facility] Last Admin: 06/14/22 19:54 Dose: 100 mg Documented By: MARCEL Enoxaparin Sodium (Enoxaparin Sodium 40 Mg/0.4 Ml Syringe) 40 mg SUBCUT Q24H [facility] Last Admin: 06/14/22 14:25 Dose: 40 mg Documented By: LINDSEY Fluticasone Propionate (Fluticasone Propionate Nasal 16 Gm [place]) 2 spray NOSTRIL-B DAILY [facility] Last Admin: 06/14/22 08:33 Dose: Not Given Documented By: LINDSEY Non-Admin Reason: Med Not Available Hydromorphone HCl (Hydromorphone Hcl 1 Mg/Ml Syringe) 1 mg IVPUSH Q2H PRN; Protocol PRN Reason: Pain, Severe (Pain Scale 7-10) Last Admin: 06/15/22 05:26 Dose: 1 mg Documented By: MARCEL Lactated Ringer's (Lr) 1,000 mls @ 200 mls/hr IVCONT .Q5H [facility] Last Admin: 06/15/22 05:26 Dose: 150 mls/hr Documented By: MARCEL Ampicillin Sodium/Sulbactam (Sodium 3 gm/ Sodium Chloride) 100 mls @ 200 mls/hr IV Q8H [facility] Last Infusion: 06/15/22 06:57 Dose: 0 mls/hr Documented By: MARCEL Omeprazole (Omeprazole 40 Mg Capsule.Dr) 40 mg PO DAILY@0600 [facility] Last Admin: 06/15/22 05:28 Dose: Not Given Documented By: MARCEL Non-Admin Reason: NPO Ondansetron HCl (Ondansetron Hcl 4 Mg/2 Ml Vial) 4 mg IVPUSH Q8H PRN PRN Reason: Nausea and Vomiting Pentoxifylline (Pentoxifylline Er 400 Mg Tablet.Er) 400 mg PO TID [facility] Last Admin: 06/14/22 19:54 Dose: 400 mg Documented By: MARCEL Pharmacy Consult (Consult Rx Perform Med Rec) 1 each MISCELLANE ONCE PRN PRN Reason: Consult order Sodium Chloride (0.9 % Sodium Chloride Flush 3 Ml Syringe) 3 ml IVFLUSH QSHIFT [facility] Last Admin: 06/14/22 22:35 Dose: Not Given Documented By: MARCEL Non-Admin Reason: IV Running Tamsulosin HCl (Tamsulosin Hcl 0.4 Mg Capsule) 0.4 mg PO DAILY@1700 [facility] Last Admin: 06/14/22 15:46 Dose: 0.4 mg Documented By: LINDSEY Labs CBC & Chem 7: 06/15/22 05:30 06/15/22 05:30 Labs: Laboratory Results - last 24 hr 06/14/22 06/14/22 06/15/22 08:52 08:52 05:30 MCV 82.0 83.2 MCH 26.3 L 26.5 L MCHC 32.1 31.8 RDW 15.4 15.5 Plt Count 251 205 MPV 10.2 10.7 Immature Gran % (Auto) 1.1 H Neut % (Auto) 87.0 H Lymph % (Auto) 4.4 L [place] % (Auto) 7.0 Eos % (Auto) 0.3 Baso % (Auto) 0.2 Lymph # (Auto) 1.4 [place] # (Auto) 2.2 H Eos # (Auto) 0.1 Baso # (Auto) 0.1 Abs Immat Gran (auto) 0.34 H Absolute Neuts (auto) 27.3 H Absolute Nucleated RBC 0.000 0.000 Nucleated RBC % (auto) 0.0 0.0 Smear Tech's Comments VERIFIED Anion Gap 20 Estim Creat Clear Calc 80.2 Estimated GFR > 60 Random Glucose 117 H D Fasting Glucose Calcium 8.3 L D Total Bilirubin 0.9 Direct Bilirubin AST 52 H ALT 100 H Alkaline Phosphatase 107 D Total Protein 5.6 L D Albumin 3.3 L D Lipase 1474 H 06/15/22 05:30 MCV MCH MCHC RDW Plt Count MPV Immature Gran % (Auto) Neut % (Auto) Lymph % (Auto) [place] % (Auto) Eos % (Auto) Baso % (Auto) Lymph # (Auto) [place] # (Auto) Eos # (Auto) Baso # (Auto) Abs Immat Gran (auto) Absolute Neuts (auto) Absolute Nucleated RBC Nucleated RBC % (auto) Smear Tech's Comments Anion Gap 15 Estim Creat Clear Calc 91.5 Estimated GFR > 60 Random Glucose Fasting Glucose 83 Calcium 8.0 L Total Bilirubin 1.4 H Direct Bilirubin 0.6 H AST 46 H ALT 66 H Alkaline Phosphatase 87 Total Protein 5.2 L Albumin 3.1 L Lipase Microbiology Microbiology Results: Microbiology 06/13/22 11:00 Blood Culture - Preliminary Blood - Venous No growth after 24 hours. 06/13/22 11:00 Blood Culture - Preliminary Blood - Venous No growth after 24 hours. Procedures Date of Service Date of Service: 06/15/22 Progress Note: A&P Assessment and plan (1) Acute pancreatitis: Status: Acute (2) Gallstones: Status: Acute (3) Hyperlipidemia: Status: Acute (4) Epigastric pain: Status: Acute (5) Transaminitis: Status: Acute Plan Moderate to severe pancreatitis. Monitor for electrolyte anomalies and hypoperfusion. Trend labs. Explained to the patient that I would recommend interval cholecystectomy when he is medically stable and has recovered from this episode of pancreatitis. Time Spent With Patient Time: Total time spent is greater than 50% in coordination of care (as documented) at patient's floor/unit and/or counseling patient: Quality Stroke Does the patient have a stroke diagnosis?: No VTE Prior VTE?: No VTE Risk Level:: Medical - moderate - high VTE Device Contraindication: Treatment Not Indicated VTE Drug Contraindication: N/A - Med Ordered
[2022-06-15] MEDS: Docusate Sodium 100 MG CAPSULE PO ×2 (08:25→20:58)
[2022-06-15] MEDS: amLODIPine Besylate 5 MG TABLET PO (08:26)
[2022-06-15] MEDS: Fluticasone Propionate Nasal 16 GM SPRAY 2 SPRAY NOSTRIL-B (08:26)
[2022-06-15] MEDS: Pentoxifylline ER 400 MG TABLET.ER PO ×3 (08:26→20:58)
--- NOTE | 2022-06-15 10:15 | P.PNIM_ITS ---
Subjective Subjective Date of Service: 06/15/22 Interval History: cc: abd pain interval history:ongoing pain, worse today Cardiovascular Cardiovascular: Reports no additional cardiovascular complaints Respiratory Respiratory: Reports no additional respiratory complaints Physical Exam Vital Signs: Vital Signs: Last Vital Signs Temp 97.9 F 06/15/22 06:55 Pulse 102 H 06/15/22 06:55 Resp 20 06/15/22 06:55 BP 184/82 H 06/15/22 07:06 Pulse Ox 94 06/15/22 06:55 O2 Del Method 06/15/22 06:55 O2 Flow Rate 2 06/15/22 06:55 BMI result Body Mass Index 32.8 General: AO X 3, in pain Resp: CTA bilateral, no accessory muscles used CVS: S1,S2,RRR GI: soft, tender, non distended Neuro: motor grossly intact, alert Psych: appropriate affect, appropriate insight Objective Data Active Medications Acetaminophen (Acetaminophen 325 Mg Tablet) 650 mg PO Q6H PRN PRN Reason: Pain, Mild (Pain Scale 1-3) Amlodipine Besylate (Amlodipine Besylate 5 Mg Tablet) 5 mg PO DAILY [facility] Last Admin: 06/15/22 08:26 Dose: 5 mg Documented By: MICHAELLE Docusate Sodium (Docusate Sodium 100 Mg Capsule) 100 mg PO BID [facility] Last Admin: 06/15/22 08:25 Dose: 100 mg Documented By: MICHAELLE Enoxaparin Sodium (Enoxaparin Sodium 40 Mg/0.4 Ml Syringe) 40 mg SUBCUT Q24H [facility] Last Admin: 06/14/22 14:25 Dose: 40 mg Documented By: LINDSEY Fluticasone Propionate (Fluticasone Propionate Nasal 16 Gm [place]) 2 spray NOSTRIL-B DAILY [facility] Last Admin: 06/15/22 08:26 Dose: 2 spray Documented By: MICHAELLE Hydromorphone HCl (Hydromorphone Hcl 1 Mg/Ml Syringe) 1.5 mg IVPUSH Q2H PRN; Protocol PRN Reason: Pain, Severe (Pain Scale 7-10) Lactated Ringer's (Lr) 1,000 mls @ 200 mls/hr IVCONT .Q5H [facility] Last Admin: 06/15/22 08:27 Dose: Not Given Documented By: MICHAELLE Non-Admin Reason: IV Running Ampicillin Sodium/Sulbactam (Sodium 3 gm/ Sodium Chloride) 100 mls @ 200 mls/hr IV Q8H [facility] Last Infusion: 06/15/22 06:57 Dose: 0 mls/hr Documented By: MARCEL Omeprazole (Omeprazole 40 Mg Capsule.Dr) 40 mg PO DAILY@0600 [facility] Last Admin: 06/15/22 05:28 Dose: Not Given Documented By: MARCEL Non-Admin Reason: NPO Ondansetron HCl (Ondansetron Hcl 4 Mg/2 Ml Vial) 4 mg IVPUSH Q8H PRN PRN Reason: Nausea and Vomiting Pentoxifylline (Pentoxifylline Er 400 Mg Tablet.Er) 400 mg PO TID [facility] Last Admin: 06/15/22 08:26 Dose: 400 mg Documented By: MICHAELLE Pharmacy Consult (Consult Rx Perform Med Rec) 1 each MISCELLANE ONCE PRN PRN Reason: Consult order Sodium Chloride (0.9 % Sodium Chloride Flush 3 Ml Syringe) 3 ml IVFLUSH QSHIFT [facility] Last Admin: 06/15/22 08:13 Dose: Not Given Documented By: MIHCAELLE Non-Admin Reason: IV Running Tamsulosin HCl (Tamsulosin Hcl 0.4 Mg Capsule) 0.4 mg PO DAILY@1700 [facility] Last Admin: 06/14/22 15:46 Dose: 0.4 mg Documented By: LINDSEY Labs CBC & Chem 7: 06/15/22 05:30 06/15/22 05:30 Labs: Laboratory Results - last 24 hr 06/15/22 06/15/22 05:30 05:30 MCV 83.2 MCH 26.5 L MCHC 31.8 RDW 15.5 Plt Count 205 MPV 10.7 Absolute Nucleated RBC 0.000 Nucleated RBC % (auto) 0.0 Anion Gap 15 Estim Creat Clear Calc 91.5 Estimated GFR > 60 Fasting Glucose 83 Calcium 8.0 L Total Bilirubin 1.4 H Direct Bilirubin 0.6 H AST 46 H ALT 66 H Alkaline Phosphatase 87 Total Protein 5.2 L Albumin 3.1 L Microbiology Microbiology Results: Microbiology 06/13/22 11:00 Blood Culture - Preliminary Blood - Venous No growth after 24 hours. 06/13/22 11:00 Blood Culture - Preliminary Blood - Venous No growth after 24 hours. Assessment and Plan (1) Acute pancreatitis: Status: Acute Plan 61-year-old male with past medical history of hypertension, hyperlipidemia, GERD, BPH presented with abdominal pain, found to have acute pancreatitis Acute pancreatitis Likely gallstone Continue IV Dilaudid - increased to 1.5mg q2h prn, IV hydration incrased to 200cc/hr Still in significant pain - worse today, bilirubin higher, will check MRCP to rule out cbd obstruction Monitor LFTs, wbc's Hypertension Continue amlodipine Hyperlipidemia will hold statin incase drug associated pancreatitis GERD PPI BPH flomax dvt prophylaxis - lovenox full code reason for continued hospitalization:iv hydration for pancreatitis Quality Stroke Does the patient have a stroke diagnosis?: No VTE Prior VTE?: No VTE Risk Level:: Medical - moderate - high VTE Device Contraindication: Treatment Not Indicated VTE Drug Contraindication: N/A - Med Ordered
[2022-06-15] MEDS: HYDROmorphone HCl 1 MG/ML SYRINGE 1.5 MG IVPUSH ×5 (11:07→23:23)
[2022-06-15] MEDS: Lactated Ringers 1,000 ML 200 ML IVCONT (11:23)
[2022-06-15] MEDS: Enoxaparin Sodium 40 MG/0.4 ML SYRINGE SUBCUT (14:44)
[2022-06-15] MEDS: 0.9 % Sodium Chloride Flush 3 ML SYRINGE IVFLUSH ×2 (14:46→21:04)
[2022-06-15] MEDS: Tamsulosin HCL 0.4 MG CAPSULE PO (17:43)
--- NOTE | 2022-06-16 | ECG_ITS ---
Test Reason : DYSPNEA Blood Pressure : / mmHG Vent. Rate : 110 BPM Atrial Rate : 110 BPM P-R Int : 134 ms QRS Dur : 082 ms QT Int : 322 ms P-R-T Axes : 059 046 078 degrees QTc Int : 435 ms Sinus tachycardia Abnormal ECG When compared with ECG of 13-JUN-2022 10:12, Heart rate has increased Referred By: Jason Reaves Electronically Signed By:TE GONCALVES
[2022-06-16] MEDS: HYDROmorphone HCl 1 MG/ML SYRINGE 1.5 MG IVPUSH ×7 (01:54→22:47)
[2022-06-16] MEDS: Omeprazole 40 MG CAPSULE.DR PO (05:51)
[2022-06-16] MEDS: Ampicillin Sodium/Sulbactam Na 3 GM in 0.9 % Sodium Chloride 100 ML IV ×3 (05:51→22:13)
[2022-06-16 05:52] VITALS: BP 167/72; PULSE 110; RESP 20; TEMP 37.4; O2SAT 91
[2022-06-16 06:50] VITALS: BP 143/86; PULSE 104; RESP 20; TEMP 36.1; O2SAT 91
[2022-06-16 06:51] LABS: Hematocrit 33.1 % (42.0-52.0); Hemoglobin 10.5 g/dl (14.0-18.0); Mean Corpuscular HGB Conc 31.7 g/dl (31.0-36.0); Mean Corpuscular Hemoglobin 26.4 pg (27.0-33.0); Mean Corpuscular Volume 83.2 fL (80.0-98.0); Mean Platelet Volume 10.9 fL (9.4-12.4); Platelet Count 177 X10*3/uL (160-400); Red Blood Count 3.98 X10*6/uL (4.60-5.80); Red Cell Distribution Width 15.3 % (11.0-16.0); White Blood Count 18.1 X10*3/uL (4.8-10.8)
--- NOTE | 2022-06-16 07:00 | CA_ITS ---
Transthoracic Echocardiogram Patient (Last, First, Middle): Igor Allen, Gender: Male Date of : 1960 Age: 61 Procedure Date: 06/16/2022 Procedure Type: Transthoracic Echocardiogram Location: [facility] – [place] Height: 167.64 cm Weight: 95.26 kg BSA: 2.04 m2 Heart Rate: bpm BP: 122 / 60 mmHg Certified Surgical Technologist: Referring MD: Jason Reaves MD Symptoms: NSTEMI Study Quality: Good ECG Rhythm: Sinus Conclusions: - Normal left ventricular size and systolic function. There is moderately increased left ventricular wall thickness. The visually estimated ejection fraction is between 65-70%. - E/E prime ratio is between 8 and 15 consistent with indeterminate filling pressures. - Mildly increased right ventricular cavity size. There is normal right ventricular systolic function. - There is mild dilatation of the ascending aorta measuring 3.70 cm. Findings Left Ventricle Normal left ventricular size and systolic function. There is moderately increased left ventricular wall thickness. The visually estimated ejection fraction is between 65-70%. Diastolic function is indeterminate on the basis of available data. Spectral Doppler is indicative of an impaired relaxation filling pattern. E/E prime ratio is between 8 and 15 consistent with indeterminate filling pressures. Right Ventricle Mildly increased right ventricular cavity size. There is normal right ventricular systolic function. Atria The left atrium is likely dilated. Aortic Valve Normal aortic valve structure and function. There is no aortic valve stenosis. There is trace (trivial) aortic valve regurgitation. Mitral Valve The mitral valve appears normal. There is no mitral valve regurgitation. There is no mitral valve stenosis. Pulmonic Valve Normal pulmonic valve structure and function. There is trace pulmonic valve regurgitation. Tricuspid Valve Normal tricuspid valve structure and function. There is mild tricuspid valve regurgitation. Normal right atrial pressure. There is no evidence of pulmonary hypertension. Great Vessels There is mild dilatation of the ascending aorta measuring 3.70 cm. The visualized portions of the pulmonary artery and branches are normal. Venous The inferior vena cava is normal in size and collapses greater than 50% with inspiration. Pericardium/Pleural There is no evidence of pericardial effusion. Prior Study Comparison No prior study available for comparison. Measurements 2D Linear Measurements IVSd: 1.47 0.6-0.9/0.6-1.0 cm LVIDd: 3.55 3.9-5.3/4.2-5.9 cm LVIDd Index: 1.74 2.4-3.2/2.2-3.1 cm/m2 LVIDs: 2.21 2.0-3.6 cm LVPWd: 1.44 0.7-1.1 cm Ao Root: 3.50 2.1-3.5 cm LA Diam: 3.80 2.7-3.8/3.0-4.0 cm LAIDs Index: 1.86 1.5-2.3 cm/m2 LV Mass: 233.84 67-162/88-224 g LV Mass Index: 114.63 43-95/49-115 g/m2 LVOT Diam: 2.40 3.0+(-)1.3 cm Mitral Valve MV Pk E: 0.68 MV PK A: 1.08 MV Decel Time: 180.00 E/A: 0.60 E'Lateral: 10.20 E'Medial: 5.00 E/E' Med: 13.60 E/E' Lat: 6.70 PHT: 53.00 MVA PHT: 4.15 Decel Union: 3.78 Aortic Valve AoV Pk Jamir: 1.97 AoV Mn Jamir: 1.17 AoV VTI: 0.33 AoV Pk Grad: 16.00 Aov Mn Grad: 7.00 NAIDA Cont.VTI: 4.40 LVOT LVOT Pk Jamir: 1.63 LVOT Mn Jamir: 1.15 LVOT VTI: 0.32 LVOT Pk Grad: 11.00 LVOT Mn Grad: 6.00 LVOT Diam: 2.40 LVOT Area: 4.52 Diastolic Function MV Pk E: 0.68 MV Pk A: 1.08 E/A: 0.60 E'Medial: 5.00 E/E' Med: 13.60 E' Laterial: 10.20 E/E' Lat: 6.70 Right Ventricle TAPSE (mm): 23.00 TVS' Jamir: 17.00 Tricuspid Valve TR Pk Jamir: 2.72 TR Pk Grad: 30.00 RA Press: 3.00 RVSP: 33.00 Great Vessels Aorta Ao Root-2D: 3.50 2.0-3.7 cm Ao Asc: 3.70 2.1-3.4 cm Pulmonary Valve PV Pk Jamir: 1.38 Peak PV Grad: 8.00 Updated in Other Vendor System with Status of Final Alek Baird MD electronically signed on 06/16/2022 3:25:55 PM with status of Final
[2022-06-16 07:04] LABS: Alanine Aminotransferase 50 U/L (0-40); Alkaline Phosphatase 75 U/L (39-117); Anion Gap 16 (12-20); Aspartate Amino Transferase 37 U/L (5-37); Bilirubin Direct 0.6 mg/dL (0.0-0.5); Bilirubin Total 1.2 mg/dL (0.0-1.0); Blood Urea Nitrogen 32 mg/dL (9-16); Calcium 7.7 mg/dL (8.4-10.2); Carbon Dioxide 29 mmol/L (22-29); Chloride 96 mmol/L (96-108); Creatinine Clr Calc Pharmacy 106.6; Estimated Glomerular Filt Rate > 60; Glucose Fasting 90 mg/dL (60-99); Potassium 3.7 mmol/L (3.3-5.1); Sodium 137 mmol/L (135-145); Total Protein 5.1 g/dL (6.5-8.0)
--- NOTE | 2022-06-16 07:28 | P.PNGS_ITS ---
Subjective Subjective Date of Service: 06/16/22 Interval history: Patient is seen with Dr. Reaves The patient is complaining of shortness of breath or workup is in process. I suspect the patient is 3rd spacing due to his moderate-severe pancreatitis and having difficulty breathing secondary to 3rd spacing from his pancreatitis in his abdomen. Physical Exam Vital Signs: Vital Signs: Last Vital Signs Temp 97 F 06/16/22 06:50 Pulse 104 H 06/16/22 06:50 Resp 20 06/16/22 06:50 BP 143/86 H 06/16/22 06:50 Pulse Ox 91 L 06/16/22 06:50 O2 Del Method 06/16/22 06:50 O2 Flow Rate 5 06/16/22 06:50 BMI result Body Mass Index 32.8 Abdomen is more distended than yesterday Abdominal pain is about the same. Objective Data Active Medications Acetaminophen (Acetaminophen 325 Mg Tablet) 650 mg PO Q6H PRN PRN Reason: Pain, Mild (Pain Scale 1-3) Amlodipine Besylate (Amlodipine Besylate 5 Mg Tablet) 5 mg PO DAILY [facility] Last Admin: 06/15/22 08:26 Dose: 5 mg Documented By: MICHAELLE Docusate Sodium (Docusate Sodium 100 Mg Capsule) 100 mg PO BID [facility] Last Admin: 06/15/22 20:58 Dose: 100 mg Documented By: MARCEL Enoxaparin Sodium (Enoxaparin Sodium 40 Mg/0.4 Ml Syringe) 40 mg SUBCUT Q24H [facility] Last Admin: 06/15/22 14:44 Dose: 40 mg Documented By: MICHAELLE Fluticasone Propionate (Fluticasone Propionate Nasal 16 Gm [place]) 2 spray NOSTRIL-B DAILY [facility] Last Admin: 06/15/22 08:26 Dose: 2 spray Documented By: MICHAELLE Hydromorphone HCl (Hydromorphone Hcl 1 Mg/Ml Syringe) 1.5 mg IVPUSH Q2H PRN; Protocol PRN Reason: Pain, Severe (Pain Scale 7-10) Last Admin: 06/16/22 05:51 Dose: 1.5 mg Documented By: MARCEL Ampicillin Sodium/Sulbactam (Sodium 3 gm/ Sodium Chloride) 100 mls @ 200 mls/hr IV Q8H [facility] Last Infusion: 06/16/22 07:02 Dose: 0 mls/hr Documented By: MARCEL Omeprazole (Omeprazole 40 Mg Capsule.Dr) 40 mg PO DAILY@0600 [facility] Last Admin: 06/16/22 05:51 Dose: 40 mg Documented By: MARCEL Ondansetron HCl (Ondansetron Hcl 4 Mg/2 Ml Vial) 4 mg IVPUSH Q8H PRN PRN Reason: Nausea and Vomiting Pentoxifylline (Pentoxifylline Er 400 Mg Tablet.Er) 400 mg PO TID [facility] Last Admin: 06/15/22 20:58 Dose: 400 mg Documented By: MARCEL Pharmacy Consult (Consult Rx Perform Med Rec) 1 each MISCELLANE ONCE PRN PRN Reason: Consult order Sodium Chloride (0.9 % Sodium Chloride Flush 3 Ml Syringe) 3 ml IVFLUSH QSHIFT [facility] Last Admin: 06/15/22 21:04 Dose: 3 ml Documented By: MARCEL Tamsulosin HCl (Tamsulosin Hcl 0.4 Mg Capsule) 0.4 mg PO DAILY@1700 [facility] Last Admin: 06/15/22 17:43 Dose: 0.4 mg Documented By: MICHAELLE Labs CBC & Chem 7: 06/16/22 05:44 06/16/22 05:44 Labs: Laboratory Results - last 24 hr 06/16/22 06/16/22 05:44 05:44 MCV 83.2 MCH 26.4 L MCHC 31.7 RDW 15.3 Plt Count 177 MPV 10.9 Absolute Nucleated RBC 0.000 Nucleated RBC % (auto) 0.0 Anion Gap 16 Estim Creat Clear Calc 106.6 Estimated GFR > 60 Fasting Glucose 90 Calcium 7.7 L Total Bilirubin 1.2 H Direct Bilirubin 0.6 H AST 37 ALT 50 H Alkaline Phosphatase 75 Total Protein 5.1 L Albumin 3.0 L Microbiology Microbiology Results: Microbiology 06/13/22 11:00 Blood Culture - Preliminary Blood - Venous No growth after 48 hours. 06/13/22 11:00 Blood Culture - Preliminary Blood - Venous No growth after 48 hours. Procedures Date of Service Date of Service: 06/16/22 Progress Note: A&P Assessment and plan (1) Dyspnea: Status: Acute (2) Acute pancreatitis: Status: Acute (3) Gallstones: Status: Acute (4) Hyperlipidemia: Status: Acute (5) Transaminitis: Status: Acute (6) Epigastric pain: Status: Acute Plan Agree with plan to rule out other medical etiology for the patient's dyspnea and shortness of breath. I suspect the patient is experiencing difficulty secondary to 3rd spacing due to his moderate-severe pancreatitis. Consider transferring to a higher level of care to monitor his respiratory status and sats. Patient required in excess of 4 L IVF in the 1st 24 hours and had poor urine output. Based on Rachel criteria, he is at high risk Cholecystectomy would be discussed when medically stable. Elevated troponin noted on today's labs. Time Spent With Patient Time: Total time spent is greater than 50% in coordination of care (as documented) at patient's floor/unit and/or counseling patient: Quality Stroke Does the patient have a stroke diagnosis?: No VTE Prior VTE?: No VTE Risk Level:: Medical - moderate - high VTE Device Contraindication: Treatment Not Indicated VTE Drug Contraindication: N/A - Med Ordered
[2022-06-16] MEDS: Docusate Sodium 100 MG CAPSULE PO (07:57)
[2022-06-16] MEDS: Pentoxifylline ER 400 MG TABLET.ER PO ×3 (07:57→19:57)
[2022-06-16] MEDS: amLODIPine Besylate 5 MG TABLET PO (07:57)
[2022-06-16 08:13] LABS: Lipase 237 U/L (8-78)
[2022-06-16 08:16] LABS: Venous Blood Gas Refer to POC result
[2022-06-16 08:18] LABS: VBG Base Excess 4.1 mmol/L; VBG HCO3 28 mmol/L (22-26); VBG pCO2 39 mmHg; VBG pH 7.45 (7.32-7.43); VBG pO2 77 mmHg
[2022-06-16 08:50] LABS: B Type Natriuretic Peptide 40 pg/mL (<100); Troponin-I High Sensitivity 123.4 ng/L (<3.5-35.0)
[2022-06-16 10:00] VITALS: BP 160/80; PULSE 103; RESP 20; TEMP 36.9; O2SAT 99
--- NOTE | 2022-06-16 10:06 | PM.EVENT ---
Event Note Date of Service: 06/16/22 Event Note: Pt been treated for acute gallstone pancreatitis that appear severe, this morning appear SOB with increased O2 requirement, no CP, CXR show bibasilar infiltrate, effusion --new, no fever, WBC is trending down, stat BNP normal. Troponin I is 123, before that 5. ECG shows tachycardia, now discrete ST or T wave changes, Exam:Talking in full sentences, abd minimal tendernes in epig, decrease bowel sound, rrr slight tachy, no peripheral edema.. Dilaudid recommended for respiratory distress, VBG, Echo ordered, cardiology consult requested. Transfer to [facility] for close monitoring. May need further testing CT chest and or Abd and possibly escalation of care.. Dr Flores to follow
[2022-06-16] MEDS: Lactated Ringers 1,000 ML 150 ML IVCONT ×2 (11:16→19:58)
[2022-06-16 11:40] VITALS: BP 140/65; PULSE 100; RESP 19; TEMP 36.7; O2SAT 95
--- NOTE | 2022-06-16 12:44 | PM.CNCAR ---
History of Present Illness History of Present Illness Date of Service: 06/16/22 Requesting physician: Carson Flores Chief complaint: Pancreatitis,Transaminitis +trop Narrative: 61-year-old gentleman presenting with abdominal pain was been diagnosed with pancreatitis. He has severe pancreatitis currently with severe abdominal discomfort and distention. He had high sensitivity troponin level checked which was 123. Is denying chest discomfort. He is significantly distressed due to abdominal pain and also is complaining of shortness of breath. Chest x-ray showing bilateral infiltrates with concern for ARDS. His BNP is 40. EKG reviewed and does not show any ischemic changes currently. [facility] Past Medical History Medical History BPH (benign prostatic hyperplasia) GERD (gastroesophageal reflux disease) HLD (hyperlipidemia) HTN (hypertension) Family History Family History Father RI (myocardial infarction) Mother Diabetes HLD (hyperlipidemia) Social History Social History Household Members: Family and Children Housing: House Do you presently have visiting nurse or other home services: No Alcohol intake: current Alcohol intake frequency: holidays/special occasions only Alcohol type: beer Patient Tobacco Use Status: Current someday Tobacco user Substance Use Type: Marijuana service: No Current occupational status: unemployed Meds Allergies Allergy/AdvReac Type Severity Reaction Status Date / Time No Known Allergies Allergy Verified 06/13/22 09:45 Active Medications: Current Medications Acetaminophen (Acetaminophen 325 Mg Tablet) 650 mg PO Q6H PRN PRN Reason: Pain, Mild (Pain Scale 1-3) Amlodipine Besylate (Amlodipine Besylate 5 Mg Tablet) 5 mg PO DAILY [facility] Last Admin: 06/16/22 07:57 Dose: 5 mg Docusate Sodium (Docusate Sodium 100 Mg Capsule) 100 mg PO BID [facility] Last Admin: 06/16/22 07:57 Dose: 100 mg Enoxaparin Sodium (Enoxaparin Sodium 40 Mg/0.4 Ml Syringe) 40 mg SUBCUT Q24H [facility] Last Admin: 06/15/22 14:44 Dose: 40 mg Fluticasone Propionate (Fluticasone Propionate Nasal 16 Gm [place]) 2 spray NOSTRIL-B DAILY [facility] Last Admin: 06/16/22 10:50 Dose: Not Given Hydromorphone HCl (Hydromorphone Hcl 1 Mg/Ml Syringe) 1.5 mg IVPUSH Q2H PRN; Protocol PRN Reason: Pain, Severe (Pain Scale 7-10) Last Admin: 06/16/22 11:09 Dose: 1.5 mg Ampicillin Sodium/Sulbactam (Sodium 3 gm/ Sodium Chloride) 100 mls @ 200 mls/hr IV Q8H [facility] Last Infusion: 06/16/22 07:02 Dose: Infused Lactated Ringer's (Lr) 1,000 mls @ 150 mls/hr IVCONT .Q6H40M [facility] Last Admin: 06/16/22 11:16 Dose: 150 mls/hr Albumin Human (Kedbumin 25 %) 100 mls @ 100 mls/hr IV Q1H [facility] Stop: 06/16/22 13:29 Omeprazole (Omeprazole 40 Mg Capsule.Dr) 40 mg PO DAILY@0600 [facility] Last Admin: 06/16/22 05:51 Dose: 40 mg Ondansetron HCl (Ondansetron Hcl 4 Mg/2 Ml Vial) 4 mg IVPUSH Q8H PRN PRN Reason: Nausea and Vomiting Pentoxifylline (Pentoxifylline Er 400 Mg Tablet.Er) 400 mg PO TID [facility] Last Admin: 06/16/22 07:57 Dose: 400 mg Pharmacy Consult (Consult Rx Perform Med Rec) 1 each MISCELLANE ONCE PRN PRN Reason: Consult order Sodium Chloride (0.9 % Sodium Chloride Flush 3 Ml Syringe) 3 ml IVFLUSH QSHIFT [facility] Last Admin: 06/16/22 11:09 Dose: Not Given Tamsulosin HCl (Tamsulosin Hcl 0.4 Mg Capsule) 0.4 mg PO DAILY@1700 [facility] Last Admin: 06/15/22 17:43 Dose: 0.4 mg Home Medications Medication Instructions Recorded Confirmed Last Taken Type amlodipine 5 mg-benazepril 10 mg 1 cap PO DAILY 06/13/22 06/13/22 06/12/22 History capsule fluticasone propionate 50 2 spray intranasal DAILY 06/13/22 06/13/22 06/12/22 History mcg/actuation nasal spray,suspension omeprazole 40 mg capsule,delayed 1 cap PO DAILY 06/13/22 06/13/22 06/12/22 History release rosuvastatin 40 mg tablet 1 tab PO DAILY 06/13/22 06/13/22 06/12/22 History tamsulosin 0.4 mg capsule 1 cap PO DAILY 06/13/22 06/13/22 06/12/22 History Physical Exam Vital Signs: Vital Signs: Last Vital Signs Temp 98.0 F 06/16/22 11:40 Pulse 100 06/16/22 11:40 Resp 19 06/16/22 11:40 BP 140/65 H 06/16/22 11:40 Pulse Ox 95 06/16/22 11:40 O2 Del Method 06/16/22 11:40 O2 Flow Rate 5 06/16/22 11:40 BMI result Body Mass Index 32.8 GENERAL APPEARANCE: Distress due to abdominal pain. Short of breath. NECK: no carotid bruit, no jugular venous distention. SKIN: no suspicious lesions, warm and dry. HEART: no murmurs, regular rate and rhythm. LUNGS: clear to auscultation bilaterally. ABDOMEN: Distended, tender. EXTREMITIES: no edema. PERIPHERAL PULSES: equal. NEUROLOGIC: No gross deficits, AAO X 3 Objective Labs and Meds Result diagrams: 06/16/22 05:44 06/16/22 05:44 Lab results: Laboratory Results - last 24 hr 06/16/22 06/16/22 06/16/22 05:44 05:44 08:07 WBC 18.1 H RBC 3.98 L Hgb 10.5 L Hct 33.1 L MCV 83.2 MCH 26.4 L MCHC 31.7 RDW 15.3 Plt Count 177 MPV 10.9 Absolute Nucleated RBC 0.000 Nucleated RBC % (auto) 0.0 VBG pH VBG pCO2 VBG pO2 VBG HCO3 VBG O2 Saturation VBG Base Excess Sodium 137 Potassium 3.7 Chloride 96 Carbon Dioxide 29 Anion Gap 16 BUN 32 H Creatinine 0.79 Estim Creat Clear Calc 106.6 Estimated GFR > 60 Fasting Glucose 90 Calcium 7.7 L Total Bilirubin 1.2 H Direct Bilirubin 0.6 H AST 37 ALT 50 H Alkaline Phosphatase 75 Troponin I High Sens 123.4 H* D B-Natriuretic Peptide 40 Total Protein 5.1 L Albumin 3.0 L Lipase 237 H 06/16/22 08:12 WBC RBC Hgb Hct MCV MCH MCHC RDW Plt Count MPV Absolute Nucleated RBC Nucleated RBC % (auto) VBG pH 7.45 H VBG pCO2 39 VBG pO2 77 VBG HCO3 28 H VBG O2 Saturation 95.0 VBG Base Excess 4.1 Sodium Potassium Chloride Carbon Dioxide Anion Gap BUN Creatinine Estim Creat Clear Calc Estimated GFR Fasting Glucose Calcium Total Bilirubin Direct Bilirubin AST ALT Alkaline Phosphatase Troponin I High Sens B-Natriuretic Peptide Total Protein Albumin Lipase Imaging Radiologist's impression: Impressions Cholangiopancreatography MRI 06/15/22 13:05 IMPRESSION: Very limited exam due to respiratory motion artifact. Normal caliber intra and extrahepatic bile ducts. No common bile duct stone is appreciated however exam is significantly limited. Gallstones. Changes of acute pancreatitis as described above. Distended small and large bowel probably representing an ileus. Chest X-Ray 06/16/22 07:24 IMPRESSION: Interval development of patchy airspace disease at left perihilar and lower lung field associated with trace amount of left-sided pleural effusion, new since 06/13/2022. Assessment and Plan (1) Dyspnea: Status: Acute (2) Elevated troponin: Status: Acute Plan Pleasant 61-year-old gentleman who is presenting for acute pancreatitis. He has severe pancreatitis currently and is quite sick due to that. I think he is developing ARDS due to pancreatitis. He is not in heart failure currently but exam. No JVD. His biomarkers are mildly elevated due to type 2 RI due to pancreatitis. EKG is not showing dynamic changes. His BNP is 40 going along with normal filling pressures. Echocardiography is showing hyperdynamic LV going along with hypovolemia and inflammatory condition. Would not start him on heparin drip. Also with severe pancreatitis there is risk of hemorrhagic conversion which can be quite challenging. We will follow along with you. Thank you for allowing me to participate in the care of your patient. Please feel free to contact me if you have any questions. Procedures Date of Service Date of Service: 06/16/22
--- NOTE | 2022-06-16 13:26 | P.PNIM_ITS ---
Subjective Subjective Date of Service: 06/16/22 Interval History: cc: abd pain interval history:sob much worse today, abd pain worse Cardiovascular Cardiovascular: Reports no additional cardiovascular complaints Respiratory Respiratory: Reports no additional respiratory complaints Physical Exam Vital Signs: Vital Signs: Last Vital Signs Temp 98.0 F 06/16/22 11:40 Pulse 100 06/16/22 11:40 Resp 19 06/16/22 11:40 BP 140/65 H 06/16/22 11:40 Pulse Ox 95 06/16/22 11:40 O2 Del Method 06/16/22 11:40 O2 Flow Rate 5 06/16/22 11:40 BMI result Body Mass Index 32.8 General: AO X 3, in acute distress Resp: Crackles bilateral, accessory muscles used CVS: S1,S2,RRR GI: tense, tender Neuro: motor grossly intact, alert Psych: appropriate affect, appropriate insight Objective Data Active Medications Acetaminophen (Acetaminophen 325 Mg Tablet) 650 mg PO Q6H PRN PRN Reason: Pain, Mild (Pain Scale 1-3) Amlodipine Besylate (Amlodipine Besylate 5 Mg Tablet) 5 mg PO DAILY [facility] Last Admin: 06/16/22 07:57 Dose: 5 mg Documented By: MICHAELLE Docusate Sodium (Docusate Sodium 100 Mg Capsule) 100 mg PO BID [facility] Last Admin: 06/16/22 07:57 Dose: 100 mg Documented By: MICHAELLE Enoxaparin Sodium (Enoxaparin Sodium 40 Mg/0.4 Ml Syringe) 40 mg SUBCUT Q24H [facility] Last Admin: 06/15/22 14:44 Dose: 40 mg Documented By: MICHAELLE Fluticasone Propionate (Fluticasone Propionate Nasal 16 Gm [place]) 2 spray NOSTRIL-B DAILY [facility] Last Admin: 06/16/22 10:50 Dose: Not Given Documented By: GAB Non-Admin Reason: on s3 Hydromorphone HCl (Hydromorphone Hcl 1 Mg/Ml Syringe) 1.5 mg IVPUSH Q2H PRN; Protocol PRN Reason: Pain, Severe (Pain Scale 7-10) Last Admin: 06/16/22 11:09 Dose: 1.5 mg Documented By: GAB Ampicillin Sodium/Sulbactam (Sodium 3 gm/ Sodium Chloride) 100 mls @ 200 mls/hr IV Q8H [facility] Last Infusion: 06/16/22 07:02 Dose: 0 mls/hr Documented By: MARCEL Lactated Ringer's (Lr) 1,000 mls @ 150 mls/hr IVCONT .Q6H40M [facility] Last Admin: 06/16/22 11:16 Dose: 150 mls/hr Documented By: GAB Albumin Human (Kedbumin 25 %) 100 mls @ 100 mls/hr IV Q1H [facility] Stop: 06/16/22 13:29 Omeprazole (Omeprazole 40 Mg Capsule.Dr) 40 mg PO DAILY@0600 [facility] Last Admin: 06/16/22 05:51 Dose: 40 mg Documented By: MARCEL Ondansetron HCl (Ondansetron Hcl 4 Mg/2 Ml Vial) 4 mg IVPUSH Q8H PRN PRN Reason: Nausea and Vomiting Pentoxifylline (Pentoxifylline Er 400 Mg Tablet.Er) 400 mg PO TID [facility] Last Admin: 06/16/22 07:57 Dose: 400 mg Documented By: MICHAELLE Pharmacy Consult (Consult Rx Perform Med Rec) 1 each MISCELLANE ONCE PRN PRN Reason: Consult order Sodium Chloride (0.9 % Sodium Chloride Flush 3 Ml Syringe) 3 ml IVFLUSH QSHIFT [facility] Last Admin: 06/16/22 11:09 Dose: Not Given Documented By: GAB Non-Admin Reason: IV Running Tamsulosin HCl (Tamsulosin Hcl 0.4 Mg Capsule) 0.4 mg PO DAILY@1700 [facility] Last Admin: 06/15/22 17:43 Dose: 0.4 mg Documented By: MICHAELLE Labs CBC & Chem 7: 06/16/22 05:44 06/16/22 05:44 Labs: Laboratory Results - last 24 hr 06/16/22 06/16/22 06/16/22 05:44 05:44 08:07 MCV 83.2 MCH 26.4 L MCHC 31.7 RDW 15.3 Plt Count 177 MPV 10.9 Absolute Nucleated RBC 0.000 Nucleated RBC % (auto) 0.0 VBG pH VBG pCO2 VBG pO2 VBG HCO3 VBG O2 Saturation VBG Base Excess Anion Gap 16 Estim Creat Clear Calc 106.6 Estimated GFR > 60 Fasting Glucose 90 Calcium 7.7 L Total Bilirubin 1.2 H Direct Bilirubin 0.6 H AST 37 ALT 50 H Alkaline Phosphatase 75 Troponin I High Sens 123.4 H* D B-Natriuretic Peptide 40 Total Protein 5.1 L Albumin 3.0 L Lipase 237 H 06/16/22 08:12 MCV MCH MCHC RDW Plt Count MPV Absolute Nucleated RBC Nucleated RBC % (auto) VBG pH 7.45 H VBG pCO2 39 VBG pO2 77 VBG HCO3 28 H VBG O2 Saturation 95.0 VBG Base Excess 4.1 Anion Gap Estim Creat Clear Calc Estimated GFR Fasting Glucose Calcium Total Bilirubin Direct Bilirubin AST ALT Alkaline Phosphatase Troponin I High Sens B-Natriuretic Peptide Total Protein Albumin Lipase Microbiology Microbiology Results: Microbiology 06/13/22 11:00 Blood Culture - Preliminary Blood - Venous No growth after 48 hours. 06/13/22 11:00 Blood Culture - Preliminary Blood - Venous No growth after 48 hours. Assessment and Plan (1) Acute pancreatitis: Status: Acute Plan 61-year-old male with past medical history of hypertension, hyperlipidemia, GERD, BPH presented with abdominal pain, found to have acute pancreatitis Acute pancreatitis Likely gallstone now complicated by acute hypoxic respiratory failure cxr with bilateral opacities, ?ARDS, also complicated by NSTEMI type II Continue IV Dilaudid - LR IV infusion check cT abd, chest MRCP without obstruction monitor lfts, wbcs, wean o2 as tolerated continue empiric unasyn does note some hunger, advance diet as tolerated Hypertension Continue amlodipine Hyperlipidemia will hold statin incase drug associated pancreatitis GERD PPI BPH flomax dvt prophylaxis - lovenox full code reason for continued hospitalization:iv hydration for pancreatitis, hypoxia, severe pain requiring iv opiates, ?need for paraenteral nutrition Quality Stroke Does the patient have a stroke diagnosis?: No VTE Prior VTE?: No VTE Risk Level:: Medical - moderate - high VTE Device Contraindication: Treatment Not Indicated VTE Drug Contraindication: N/A - Med Ordered
[2022-06-16] MEDS: Albumin Human 25 % 100 ML IV ×2 (13:36→14:43)
[2022-06-16] MEDS: Enoxaparin Sodium 40 MG/0.4 ML SYRINGE SUBCUT (13:53)
[2022-06-16 16:00] VITALS: BP 174/84; PULSE 94; RESP 18; TEMP 36.9; O2SAT 95
[2022-06-16] MEDS: Tamsulosin HCL 0.4 MG CAPSULE PO (16:49)
--- NOTE | 2022-06-16 16:52 | PC.NURSE ---
Patient had large loose BM with gas with relief. Patients WOB still increased but respirations are not as deep. Patient titrated down to 3liters NC. Abdomen still distended but reports much relief.
--- NOTE | 2022-06-16 19:03 | PM.GIPN ---
Subjective Subjective Date of Service: 06/16/22 Interval History: stormy last 24 hrs, breathing got worse today breathing is easier, no chest pain abdo pain is less passing greater amounts of urine, but no stool or gas feesl hungry, managing liquids reviewed CT scans with hospitalist team, significant rocky pancreatic inflammation, gallstones, left sided patchy lower lobe infiltrate looking more like pneumonia Critical Care Time (minutes): 0 Physical Exam Vital Signs: Vital Signs: Last Vital Signs Temp 98.4 F 06/16/22 16:00 Pulse 94 06/16/22 16:00 Resp 18 06/16/22 16:00 BP 174/84 H 06/16/22 16:00 Pulse Ox 95 06/16/22 16:00 O2 Del Method 06/16/22 16:00 O2 Flow Rate 5 06/16/22 16:00 BMI result Body Mass Index 32.8 EXAM: GENERAL: The patient is well developed and nontoxic. VITAL SIGNS:see workflow HEENT: Nonicteric sclerae, PERRLA, EOMI. Oropharynx clear. Moist mucous membranes. Conjunctivae appear well perfused. No thyroid mass. CHEST: Chest wall is nontender. HEART: Regular rate and rhythm without murmurs. LUNGS: few crackles left base, good a/e b/l ABDOMEN: Soft, positive bowel sounds, nontender, no organomegaly.no flank tenderness, distended SKIN: No rash, no excessive bruising, petechiae, or purpura. NEUROLOGIC: Cranial nerves II-XII intact without motor/sensory deficit psych-nml. Objective Data Labs CBC & Chem 7: 06/16/22 05:44 06/16/22 05:44 Labs: Laboratory Results - last 24 hr 06/16/22 06/16/22 06/16/22 05:44 05:44 08:07 WBC 18.1 H RBC 3.98 L Hgb 10.5 L Hct 33.1 L MCV 83.2 MCH 26.4 L MCHC 31.7 RDW 15.3 Plt Count 177 MPV 10.9 Absolute Nucleated RBC 0.000 Nucleated RBC % (auto) 0.0 VBG pH VBG pCO2 VBG pO2 VBG HCO3 VBG O2 Saturation VBG Base Excess Sodium 137 Potassium 3.7 Chloride 96 Carbon Dioxide 29 Anion Gap 16 BUN 32 H Creatinine 0.79 Estim Creat Clear Calc 106.6 Estimated GFR > 60 Fasting Glucose 90 Calcium 7.7 L Total Bilirubin 1.2 H Direct Bilirubin 0.6 H AST 37 ALT 50 H Alkaline Phosphatase 75 Troponin I High Sens 123.4 H* D B-Natriuretic Peptide 40 Total Protein 5.1 L Albumin 3.0 L Lipase 237 H 06/16/22 08:12 WBC RBC Hgb Hct MCV MCH MCHC RDW Plt Count MPV Absolute Nucleated RBC Nucleated RBC % (auto) VBG pH 7.45 H VBG pCO2 39 VBG pO2 77 VBG HCO3 28 H VBG O2 Saturation 95.0 VBG Base Excess 4.1 Sodium Potassium Chloride Carbon Dioxide Anion Gap BUN Creatinine Estim Creat Clear Calc Estimated GFR Fasting Glucose Calcium Total Bilirubin Direct Bilirubin AST ALT Alkaline Phosphatase Troponin I High Sens B-Natriuretic Peptide Total Protein Albumin Lipase Imaging CT scan - abdomen: My impression: pancreatitis, atherosclerosis, gallstones, infiltrate left lung, and small pl effusions Microbiology Microbiology Results: Microbiology 06/13/22 11:00 Blood - Venous Blood Culture - Preliminary No growth after 48 hours. 06/13/22 11:00 Blood - Venous Blood Culture - Preliminary No growth after 48 hours. Procedures Date of Service Date of Service: 06/16/22 Progress Note: A&P Assessment and plan (1) Acute pancreatitis: Status: Acute (2) Pneumonia: Status: Acute Plan 1/ Acute gallstone pancreatitis, severe with possible superimposed HCAP, WCC coming down, seems improved from earlier PLAN: 1/ advance diet if tolerated otherwise consider [place] feeds --can improve outcomes in pancreatitis 2/ add vanc if not improving from resp standpoint 3/ consider retesting for covid 4/ can use albumin for resuscitation if ongoing concern for third spacing but seeems to be mobilizing fluid now. 5/ check urine legionella and pneumococcal antigen Time Spent With Patient Time: Total time spent is greater than 50% in coordination of care (as documented) at patient's floor/unit and/or counseling patient: Quality Stroke Does the patient have a stroke diagnosis?: No VTE Prior VTE?: No VTE Risk Level:: Medical - moderate - high VTE Device Contraindication: Treatment Not Indicated VTE Drug Contraindication: N/A - Med Ordered
[2022-06-16 20:00] VITALS: BP 182/88; PULSE 109; RESP 20; TEMP 37.3; O2SAT 86
[2022-06-16] MEDS: 0.9 % Sodium Chloride Flush 3 ML SYRINGE IVFLUSH (20:12)
[2022-06-17] VITALS (8 sets, daily range): BP systolic 150–183; BP diastolic 70–89; PULSE 88–110; RESP 16–20; TEMP 36.2–37.9; O2SAT 91–96
[2022-06-17] MEDS: HYDROmorphone HCl 1 MG/ML SYRINGE 1.5 MG IVPUSH ×5 (02:31→20:44)
[2022-06-17] MEDS: Lactated Ringers 1,000 ML 150 ML IVCONT ×2 (03:33→13:06)
[2022-06-17] MEDS: Ampicillin Sodium/Sulbactam Na 3 GM in 0.9 % Sodium Chloride 100 ML IV ×3 (05:24→23:46)
[2022-06-17] MEDS: Omeprazole 40 MG CAPSULE.DR PO (05:26)
[2022-06-17 06:42] LABS: Hematocrit 26.9 % (42.0-52.0); Hemoglobin 8.7 g/dl (14.0-18.0); Mean Corpuscular HGB Conc 32.3 g/dl (31.0-36.0); Mean Corpuscular Hemoglobin 26.7 pg (27.0-33.0); Mean Corpuscular Volume 82.5 fL (80.0-98.0); Mean Platelet Volume 10.6 fL (9.4-12.4); NRBC Pct Auto 0.2 /100WBC (0.0-0.2); Platelet Count 168 X10*3/uL (160-400); Red Blood Count 3.26 X10*6/uL (4.60-5.80); Red Cell Distribution Width 15.2 % (11.0-16.0); White Blood Count 16.8 X10*3/uL (4.8-10.8)
[2022-06-17 07:25] LABS: Alanine Aminotransferase 36 U/L (0-40); Albumin Level 3.1 g/dL (3.5-5.0); Alkaline Phosphatase 69 U/L (39-117); Anion Gap 16 (12-20); Aspartate Amino Transferase 31 U/L (5-37); Bilirubin Direct 0.5 mg/dL (0.0-0.5); Bilirubin Total 1.1 mg/dL (0.0-1.0); Blood Urea Nitrogen 20 mg/dL (9-16); Calcium 7.8 mg/dL (8.4-10.2); Carbon Dioxide 26 mmol/L (22-29); Chloride 99 mmol/L (96-108); Creatinine Clr Calc Pharmacy 127.6; Estimated Glomerular Filt Rate > 60; Glucose Fasting 104 mg/dL (60-99); Potassium 3.3 mmol/L (3.3-5.1); Sodium 138 mmol/L (135-145)
[2022-06-17] MEDS: amLODIPine Besylate 5 MG TABLET PO (08:10)
[2022-06-17] MEDS: 0.9 % Sodium Chloride Flush 3 ML SYRINGE IVFLUSH ×3 (08:10→20:41)
[2022-06-17] MEDS: Pentoxifylline ER 400 MG TABLET.ER PO ×3 (08:10→20:40)
--- NOTE | 2022-06-17 09:41 | P.PNGS_ITS ---
Subjective Subjective Date of Service: 06/17/22 Interval history: Patient denies abdominal pain at this time. He is eating his breakfast of scrambled legs appears to be tolerating this well without nausea or vomiting. Physical Exam Vital Signs: Vital Signs: Last Vital Signs Temp 100.2 F 06/17/22 07:22 Pulse 99 06/17/22 07:22 Resp 20 06/17/22 07:22 BP 183/84 H 06/17/22 07:22 Pulse Ox 94 06/17/22 07:22 O2 Del Method 06/17/22 07:22 O2 Flow Rate 1 06/17/22 07:22 BMI result Body Mass Index 32.8 Const: General: no acute distress Nutritional Appearance: obese Orientation/consciousness: patient oriented x3 Resp: Effort & Inspection: normal respiratory effort, no audible wheezes and Actively coughing GI: Inspection: Yes normal to inspection and Yes distended Palpation (GI): Soft to palpation, nontender, no guarding and not rigid Percussion: Yes tympanic to percussion Rectal Exam - Male: Yes deferred Skin: General skin exam: no rashes or lesions noted Neuro: General: patient oriented x3 Extrem: General: No edema Objective Data Active Medications Acetaminophen (Acetaminophen 325 Mg Tablet) 650 mg PO Q6H PRN PRN Reason: Pain, Mild (Pain Scale 1-3) Amlodipine Besylate (Amlodipine Besylate 5 Mg Tablet) 5 mg PO DAILY [facility] Last Admin: 06/17/22 08:10 Dose: 5 mg Documented By: LISA Docusate Sodium (Docusate Sodium 100 Mg Capsule) 100 mg PO BID [facility] Last Admin: 06/17/22 08:01 Dose: Not Given Documented By: LISA Non-Admin Reason: loose stool Enoxaparin Sodium (Enoxaparin Sodium 40 Mg/0.4 Ml Syringe) 40 mg SUBCUT Q24H [facility] Last Admin: 06/16/22 13:53 Dose: 40 mg Documented By: GAB Fluticasone Propionate (Fluticasone Propionate Nasal 16 Gm [place]) 2 spray NOSTRIL-B DAILY [facility] Last Admin: 06/16/22 10:50 Dose: Not Given Documented By: GAB Non-Admin Reason: on s3 Hydromorphone HCl (Hydromorphone Hcl 1 Mg/Ml Syringe) 1.5 mg IVPUSH Q2H PRN; Protocol PRN Reason: Pain, Severe (Pain Scale 7-10) Last Admin: 06/17/22 08:10 Dose: 1.5 mg Documented By: LISA Ampicillin Sodium/Sulbactam (Sodium 3 gm/ Sodium Chloride) 100 mls @ 200 mls/hr IV Q8H [facility] Last Infusion: 06/17/22 06:00 Dose: 0 mls/hr Documented By: GRACIA Lactated Ringer's (Lr) 1,000 mls @ 150 mls/hr IVCONT .Q6H40M [facility] Last Admin: 06/17/22 08:20 Dose: Not Given Documented By: LISA Non-Admin Reason: IV Running Omeprazole (Omeprazole 40 Mg Capsule.Dr) 40 mg PO DAILY@0600 [facility] Last Admin: 06/17/22 05:26 Dose: 40 mg Documented By: GRACIA Ondansetron HCl (Ondansetron Hcl 4 Mg/2 Ml Vial) 4 mg IVPUSH Q8H PRN PRN Reason: Nausea and Vomiting Pentoxifylline (Pentoxifylline Er 400 Mg Tablet.Er) 400 mg PO TID [facility] Last Admin: 06/17/22 08:10 Dose: 400 mg Documented By: LISA Pharmacy Consult (Consult Rx Perform Med Rec) 1 each MISCELLANE ONCE PRN PRN Reason: Consult order Sodium Chloride (0.9 % Sodium Chloride Flush 3 Ml Syringe) 3 ml IVFLUSH QSHIFT [facility] Last Admin: 06/17/22 08:10 Dose: 3 ml Documented By: LISA Tamsulosin HCl (Tamsulosin Hcl 0.4 Mg Capsule) 0.4 mg PO DAILY@1700 [facility] Last Admin: 06/16/22 16:49 Dose: 0.4 mg Documented By: GAB Labs CBC & Chem 7: 06/17/22 06:01 06/17/22 06:01 Labs: Laboratory Results - last 24 hr 06/17/22 06/17/22 06:01 06:01 MCV 82.5 MCH 26.7 L MCHC 32.3 RDW 15.2 Plt Count 168 MPV 10.6 Absolute Nucleated RBC 0.030 H Nucleated RBC % (auto) 0.2 Anion Gap 16 Estim Creat Clear Calc 127.6 Estimated GFR > 60 Fasting Glucose 104 H Calcium 7.8 L Total Bilirubin 1.1 H Direct Bilirubin 0.5 AST 31 ALT 36 Alkaline Phosphatase 69 Total Protein 5.0 L Albumin 3.1 L Procedures Date of Service Date of Service: 06/17/22 Progress Note: A&P Assessment and plan (1) Pneumonia: Status: Acute (2) Acute pancreatitis: Status: Acute Plan Patient's symptoms seem to be improved as he is tolerating his breakfast without an increase in abdominal pain. Abdomen is distended with tympany to percussion. Patient reports passing lots of flatus. Continue to monitor abdominal examination. Time Spent With Patient Time: Total time spent is greater than 50% in coordination of care (as documented) at patient's floor/unit and/or counseling patient: Quality Stroke Does the patient have a stroke diagnosis?: No VTE Prior VTE?: No VTE Risk Level:: Medical - moderate - high VTE Device Contraindication: Treatment Not Indicated VTE Drug Contraindication: N/A - Med Ordered
--- NOTE | 2022-06-17 11:00 | HO.PM.IMPN ---
Subjective Subjective Date of Service: 06/17/22 Interval History: cc: abd pain interval history:sob a bit better today, abd pain stable, tolerated some solids Cardiovascular Cardiovascular: Reports no additional cardiovascular complaints Respiratory Respiratory: Reports no additional respiratory complaints Physical Exam Vital Signs: Vital Signs: Last Vital Signs Temp 100.2 F 06/17/22 07:22 Pulse 99 06/17/22 07:22 Resp 20 06/17/22 07:22 BP 183/84 H 06/17/22 07:22 Pulse Ox 94 06/17/22 07:22 O2 Del Method 06/17/22 07:22 O2 Flow Rate 1 06/17/22 07:22 BMI result Body Mass Index 32.8 Const: General: no acute distress Nutritional Appearance: obese Orientation/consciousness: patient oriented x3 Resp: Effort & Inspection: normal respiratory effort, no audible wheezes and Actively coughing GI: Inspection: Yes normal to inspection and Yes distended Palpation (GI): Soft to palpation, nontender, no guarding and not rigid Percussion: Yes tympanic to percussion Rectal Exam - Male: Yes deferred Skin: General skin exam: no rashes or lesions noted Neuro: General: patient oriented x3 Extrem: General: No edema Objective Data Active Medications Acetaminophen (Acetaminophen 325 Mg Tablet) 650 mg PO Q6H PRN PRN Reason: Pain, Mild (Pain Scale 1-3) Amlodipine Besylate (Amlodipine Besylate 5 Mg Tablet) 5 mg PO DAILY [facility] Last Admin: 06/17/22 08:10 Dose: 5 mg Documented By: LISA Docusate Sodium (Docusate Sodium 100 Mg Capsule) 100 mg PO BID [facility] Last Admin: 06/17/22 08:01 Dose: Not Given Documented By: LISA Non-Admin Reason: loose stool Enoxaparin Sodium (Enoxaparin Sodium 40 Mg/0.4 Ml Syringe) 40 mg SUBCUT Q24H [facility] Last Admin: 06/16/22 13:53 Dose: 40 mg Documented By: GAB Fluticasone Propionate (Fluticasone Propionate Nasal 16 Gm [place]) 2 spray NOSTRIL-B DAILY [facility] Last Admin: 06/16/22 10:50 Dose: Not Given Documented By: GAB Non-Admin Reason: on s3 Hydromorphone HCl (Hydromorphone Hcl 1 Mg/Ml Syringe) 1.5 mg IVPUSH Q2H PRN; Protocol PRN Reason: Pain, Severe (Pain Scale 7-10) Last Admin: 06/17/22 08:10 Dose: 1.5 mg Documented By: LISA Ampicillin Sodium/Sulbactam (Sodium 3 gm/ Sodium Chloride) 100 mls @ 200 mls/hr IV Q8H [facility] Last Infusion: 06/17/22 06:00 Dose: 0 mls/hr Documented By: GRACIA Lactated Ringer's (Lr) 1,000 mls @ 150 mls/hr IVCONT .Q6H40M [facility] Last Admin: 06/17/22 08:20 Dose: Not Given Documented By: LISA Non-Admin Reason: IV Running Omeprazole (Omeprazole 40 Mg Capsule.Dr) 40 mg PO DAILY@0600 [facility] Last Admin: 06/17/22 05:26 Dose: 40 mg Documented By: GRACIA Ondansetron HCl (Ondansetron Hcl 4 Mg/2 Ml Vial) 4 mg IVPUSH Q8H PRN PRN Reason: Nausea and Vomiting Pentoxifylline (Pentoxifylline Er 400 Mg Tablet.Er) 400 mg PO TID [facility] Last Admin: 06/17/22 08:10 Dose: 400 mg Documented By: LISA Pharmacy Consult (Consult Rx Perform Med Rec) 1 each MISCELLANE ONCE PRN PRN Reason: Consult order Sodium Chloride (0.9 % Sodium Chloride Flush 3 Ml Syringe) 3 ml IVFLUSH QSHIFT [facility] Last Admin: 06/17/22 08:10 Dose: 3 ml Documented By: LISA Tamsulosin HCl (Tamsulosin Hcl 0.4 Mg Capsule) 0.4 mg PO DAILY@1700 [facility] Last Admin: 06/16/22 16:49 Dose: 0.4 mg Documented By: GAB Labs CBC & Chem 7: 06/17/22 06:01 06/17/22 06:01 Labs: Laboratory Results - last 24 hr 06/17/22 06/17/22 06:01 06:01 MCV 82.5 MCH 26.7 L MCHC 32.3 RDW 15.2 Plt Count 168 MPV 10.6 Absolute Nucleated RBC 0.030 H Nucleated RBC % (auto) 0.2 Anion Gap 16 Estim Creat Clear Calc 127.6 Estimated GFR > 60 Fasting Glucose 104 H Calcium 7.8 L Total Bilirubin 1.1 H Direct Bilirubin 0.5 AST 31 ALT 36 Alkaline Phosphatase 69 Total Protein 5.0 L Albumin 3.1 L Assessment and Plan (1) Acute pancreatitis: Status: Acute Plan 61-year-old male with past medical history of hypertension, hyperlipidemia, GERD, BPH presented with abdominal pain, found to have acute pancreatitis Acute pancreatitis Likely gallstone now complicated by acute hypoxic respiratory failure cxr with bilateral opacities, ?ARDS, CT chest showing bilateral L>R possible pna, also complicated by NSTEMI type II Continue IV Dilaudid - LR IV infusion MRCP without obstruction monitor lfts, wbcs, - improving, wean o2 as tolerated continue empiric unasyn, cultures negative tolerated some solid diet for breakfast Hypertension Continue amlodipine Hyperlipidemia holding statin incase drug associated pancreatitis GERD PPI BPH flomax dvt prophylaxis - lovenox full code reason for continued hospitalization:iv hydration for pancreatitis, hypoxia, severe pain requiring iv opiates Quality Stroke Does the patient have a stroke diagnosis?: No VTE Prior VTE?: No VTE Risk Level:: Medical - moderate - high VTE Device Contraindication: Treatment Not Indicated VTE Drug Contraindication: N/A - Med Ordered
--- NOTE | 2022-06-17 14:16 | PM.PNCARD ---
Subjective Subjective Date of Service: 06/17/22 Interval history: Patient seen examined at bedside. He has been passing gas and has been given some liquid diet. Still on supplemental oxygen. Physical Exam Vital Signs: Last Vital Signs Temp 98.4 F 06/17/22 11:24 Pulse 100 06/17/22 11:24 Resp 18 06/17/22 11:24 BP 175/82 H 06/17/22 11:24 Pulse Ox 95 06/17/22 11:24 O2 Del Method 06/17/22 11:24 O2 Flow Rate 2 06/17/22 11:24 BMI result Body Mass Index 32.8 GENERAL APPEARANCE: in no acute distress, pleasant. NECK: no carotid bruit, positive jugular venous distention. SKIN: no suspicious lesions, warm and dry. HEART: no murmurs, regular rate and rhythm. LUNGS: Crackles both bases. ABDOMEN: soft, distended, nontender. EXTREMITIES: no edema. PERIPHERAL PULSES: equal. NEUROLOGIC: No gross deficits, AAO X 3 Objective Labs and Meds Result diagrams: 06/17/22 06:01 06/17/22 06:01 Lab results: Laboratory Results - last 24 hr 06/17/22 06/17/22 06:01 06:01 WBC 16.8 H RBC 3.26 L Hgb 8.7 L Hct 26.9 L MCV 82.5 MCH 26.7 L MCHC 32.3 RDW 15.2 Plt Count 168 MPV 10.6 Absolute Nucleated RBC 0.030 H Nucleated RBC % (auto) 0.2 Sodium 138 Potassium 3.3 Chloride 99 Carbon Dioxide 26 Anion Gap 16 BUN 20 H Creatinine 0.66 Estim Creat Clear Calc 127.6 Estimated GFR > 60 Fasting Glucose 104 H Calcium 7.8 L Total Bilirubin 1.1 H Direct Bilirubin 0.5 AST 31 ALT 36 Alkaline Phosphatase 69 Total Protein 5.0 L Albumin 3.1 L Imaging Radiologist's impression: Impressions Abdomen/Pelvis CT 06/16/22 13:50 IMPRESSION: 1. Extensive peripancreatic stranding consistent with pancreatitis, similar to slightly improved from 06/13/2022. Small amount of free fluid, without appreciable focal collection. 2. Cholelithiasis. 3. Multifocal regions of pulmonary consolidation bilaterally, left lung greater than right, which may be infectious. 4. Small pleural effusions. Adjacent regions of dense opacity in the dependent lower lobes are favored to at least partially represent atelectasis. Chest CT 06/16/22 13:50 IMPRESSION: 1. Extensive peripancreatic stranding consistent with pancreatitis, similar to slightly improved from 06/13/2022. Small amount of free fluid, without appreciable focal collection. 2. Cholelithiasis. 3. Multifocal regions of pulmonary consolidation bilaterally, left lung greater than right, which may be infectious. 4. Small pleural effusions. Adjacent regions of dense opacity in the dependent lower lobes are favored to at least partially represent atelectasis. Progress Note: A&P Assessment and plan (1) Elevated troponin: Status: Acute (2) Acute pancreatitis: Status: Acute Plan [age] year gentleman here with gallstone pancreatitis and mildly elevated troponin levels. High troponin levels are due to type 2 injury. Continues to be oxygen dependent. He is on IV fluids and has mild JVD along with bilateral crackles. I would suggest stopping the fluids and giving 1 dose of IV diuretics. It appears is already improving from PACU tightest point of view. Concerned that he is developing some mild congestive heart failure due to IV fluid resuscitation. Thank you for allowing me to participate in the care of your patient. Please feel free to contact me if you have any questions. Time Spent With Patient Time: Total time spent is greater than 50% in coordination of care (as documented) at patient's floor/unit and/or counseling patient: Progress Note: Quality Stroke Does the patient have a stroke diagnosis?: No Procedures Date of Service Date of Service: 06/17/22
[2022-06-17] MEDS: Furosemide 40 MG/4 ML VIAL IVPUSH (14:32)
[2022-06-17] MEDS: Enoxaparin Sodium 40 MG/0.4 ML SYRINGE SUBCUT (15:25)
[2022-06-17] MEDS: Tamsulosin HCL 0.4 MG CAPSULE PO (18:19)
[2022-06-18] MEDS: HYDROmorphone HCl 1 MG/ML SYRINGE 1.5 MG IVPUSH ×5 (01:38→22:08)
[2022-06-18 03:56] VITALS: BP 175/79; PULSE 94; RESP 20; TEMP 37.1; O2SAT 95
[2022-06-18] MEDS: Ampicillin Sodium/Sulbactam Na 3 GM in 0.9 % Sodium Chloride 100 ML IV ×3 (06:08→22:08)
[2022-06-18] MEDS: Omeprazole 40 MG CAPSULE.DR PO (06:08)
[2022-06-18 06:52] LABS: Hematocrit 28.8 % (42.0-52.0); Hemoglobin 9.4 g/dl (14.0-18.0); Mean Corpuscular HGB Conc 32.6 g/dl (31.0-36.0); Mean Corpuscular Hemoglobin 27.2 pg (27.0-33.0); Mean Corpuscular Volume 83.2 fL (80.0-98.0); Mean Platelet Volume 10.7 fL (9.4-12.4); NRBC Pct Auto 0.3 /100WBC (0.0-0.2); Platelet Count 220 X10*3/uL (160-400); Red Blood Count 3.46 X10*6/uL (4.60-5.80); Red Cell Distribution Width 15.6 % (11.0-16.0); White Blood Count 20.1 X10*3/uL (4.8-10.8)
[2022-06-18 07:30] LABS: Alanine Aminotransferase 43 U/L (0-40); Albumin Level 3.2 g/dL (3.5-5.0); Alkaline Phosphatase 95 U/L (39-117); Anion Gap 17 (12-20); Aspartate Amino Transferase 72 U/L (5-37); Bilirubin Direct 0.4 mg/dL (0.0-0.5); Bilirubin Total 0.7 mg/dL (0.0-1.0); Blood Urea Nitrogen 16 mg/dL (9-16); Carbon Dioxide 29 mmol/L (22-29); Chloride 96 mmol/L (96-108); Creatinine Clr Calc Pharmacy 123.8; Estimated Glomerular Filt Rate > 60; Glucose Fasting 106 mg/dL (60-99); Sodium 139 mmol/L (135-145); Total Protein 5.4 g/dL (6.5-8.0)
[2022-06-18 08:00] VITALS: BP 184/89; PULSE 89; RESP 20; TEMP 37.2; O2SAT 94
[2022-06-18] MEDS: Potassium Chloride ER 20 MEQ TAB.ER.PRT 40 MEQ PO (08:57)
[2022-06-18] MEDS: Pentoxifylline ER 400 MG TABLET.ER PO ×3 (08:59→22:08)
[2022-06-18] MEDS: 0.9 % Sodium Chloride Flush 3 ML SYRINGE IVFLUSH ×3 (09:00→22:11)
[2022-06-18] MEDS: amLODIPine Besylate 5 MG TABLET PO (09:00)
--- NOTE | 2022-06-18 09:25 | HO.PM.IMPN ---
Subjective Subjective Date of Service: 06/18/22 Interval History: cc: abd pain interval history:slowly improving, tolerating small amounts of solids, had BM Cardiovascular Cardiovascular: Reports no additional cardiovascular complaints Respiratory Respiratory: Reports no additional respiratory complaints Physical Exam Vital Signs: Vital Signs: Last Vital Signs Temp 99 F 06/18/22 08:00 Pulse 89 06/18/22 08:00 Resp 20 06/18/22 08:00 BP 184/89 H 06/18/22 08:00 Pulse Ox 94 06/18/22 08:00 O2 Del Method 06/18/22 08:00 O2 Flow Rate 1 06/18/22 08:00 BMI result Body Mass Index 32.8 GENERAL APPEARANCE: in no acute distress, pleasant. NECK: no carotid bruit, positive jugular venous distention. SKIN: no suspicious lesions, warm and dry. HEART: no murmurs, regular rate and rhythm. LUNGS: Crackles both bases. ABDOMEN: soft, distended, nontender. EXTREMITIES: no edema. PERIPHERAL PULSES: equal. NEUROLOGIC: No gross deficits, AAO X 3 Objective Data Active Medications Acetaminophen (Acetaminophen 325 Mg Tablet) 650 mg PO Q6H PRN PRN Reason: Pain, Mild (Pain Scale 1-3) Amlodipine Besylate (Amlodipine Besylate 5 Mg Tablet) 5 mg PO DAILY [facility] Last Admin: 06/18/22 09:00 Dose: 5 mg Documented By: LISA Docusate Sodium (Docusate Sodium 100 Mg Capsule) 100 mg PO BID [facility] Last Admin: 06/18/22 09:00 Dose: Not Given Documented By: LISA Non-Admin Reason: Patient Refused Enoxaparin Sodium (Enoxaparin Sodium 40 Mg/0.4 Ml Syringe) 40 mg SUBCUT Q24H [facility] Last Admin: 06/17/22 15:25 Dose: 40 mg Documented By: LISA Fluticasone Propionate (Fluticasone Propionate Nasal 16 Gm [place]) 2 spray NOSTRIL-B DAILY [facility] Last Admin: 06/17/22 13:50 Dose: Not Given Documented By: LISA Non-Admin Reason: respiratory? Hydromorphone HCl (Hydromorphone Hcl 1 Mg/Ml Syringe) 1.5 mg IVPUSH Q2H PRN; Protocol PRN Reason: Pain, Severe (Pain Scale 7-10) Last Admin: 06/18/22 09:00 Dose: 1.5 mg Documented By: LISA Ampicillin Sodium/Sulbactam (Sodium 3 gm/ Sodium Chloride) 100 mls @ 200 mls/hr IV Q8H [facility] Last Infusion: 06/18/22 06:59 Dose: 0 mls/hr Documented By: GRACIA Omeprazole (Omeprazole 40 Mg Capsule.Dr) 40 mg PO DAILY@0600 [facility] Last Admin: 06/18/22 06:08 Dose: 40 mg Documented By: GRACIA Ondansetron HCl (Ondansetron Hcl 4 Mg/2 Ml Vial) 4 mg IVPUSH Q8H PRN PRN Reason: Nausea and Vomiting Pentoxifylline (Pentoxifylline Er 400 Mg Tablet.Er) 400 mg PO TID [facility] Last Admin: 06/18/22 08:59 Dose: 400 mg Documented By: LISA Pharmacy Consult (Consult Rx Perform Med Rec) 1 each MISCELLANE ONCE PRN PRN Reason: Consult order Sodium Chloride (0.9 % Sodium Chloride Flush 3 Ml Syringe) 3 ml IVFLUSH QSHIFT [facility] Last Admin: 06/18/22 09:00 Dose: 3 ml Documented By: LISA Tamsulosin HCl (Tamsulosin Hcl 0.4 Mg Capsule) 0.4 mg PO DAILY@1700 [facility] Last Admin: 06/17/22 18:19 Dose: 0.4 mg Documented By: LISA Labs CBC & Chem 7: 06/18/22 06:14 06/18/22 06:14 Labs: Laboratory Results - last 24 hr 06/18/22 06/18/22 06:14 06:14 MCV 83.2 MCH 27.2 MCHC 32.6 RDW 15.6 Plt Count 220 D MPV 10.7 Absolute Nucleated RBC 0.070 H Nucleated RBC % (auto) 0.3 H Anion Gap 17 Estim Creat Clear Calc 123.8 Estimated GFR > 60 Fasting Glucose 106 H Calcium 8.0 L Total Bilirubin 0.7 Direct Bilirubin 0.4 AST 72 H ALT 43 H Alkaline Phosphatase 95 D Total Protein 5.4 L Albumin 3.2 L Assessment and Plan (1) Acute pancreatitis: Status: Acute Plan 61-year-old male with past medical history of hypertension, hyperlipidemia, GERD, BPH presented with abdominal pain, found to have acute pancreatitis Acute pancreatitis Likely gallstone now complicated by acute hypoxic respiratory failure cxr with bilateral opacities, ?ARDS, CT chest showing bilateral L>R possible pna, also complicated by NSTEMI type II Continue IV Dilaudid ivf now held, possible fluid overload MRCP without obstruction monitor lfts, wbcs, - improving, wean o2 as tolerated continue empiric unasyn, cultures negative tolerated some solid diet continue to advance as tolerated Hypertension Continue amlodipine Hyperlipidemia holding statin incase drug associated pancreatitis GERD PPI BPH flomax dvt prophylaxis - lovenox full code reason for continued hospitalization:hypoxia, severe pain requiring iv opiates Quality Stroke Does the patient have a stroke diagnosis?: No VTE Prior VTE?: No VTE Risk Level:: Medical - moderate - high VTE Device Contraindication: Treatment Not Indicated VTE Drug Contraindication: N/A - Med Ordered
--- NOTE | 2022-06-18 09:34 | PM.PNGS ---
Subjective Subjective Date of Service: 06/18/22 Interval history: Patient reports decreased abdominal pain and distension. He is passing flatus and bowels. Reports tolerating a small amount of his diet. Physical Exam Vital Signs: Vital Signs: Last Vital Signs Temp 99 F 06/18/22 08:00 Pulse 89 06/18/22 08:00 Resp 20 06/18/22 08:00 BP 184/89 H 06/18/22 08:00 Pulse Ox 94 06/18/22 08:00 O2 Del Method 06/18/22 08:00 O2 Flow Rate 1 06/18/22 08:00 BMI result Body Mass Index 32.8 Const: General: no acute distress Nutritional Appearance: obese Orientation/consciousness: patient oriented x3 Resp: Effort & Inspection: normal respiratory effort, no audible wheezes and Actively coughing GI: Inspection: Yes normal to inspection and Yes distended Palpation (GI): Soft to palpation, nontender, no guarding and not rigid Percussion: Yes tympanic to percussion Rectal Exam - Male: Yes deferred Skin: General skin exam: no rashes or lesions noted Neuro: General: patient oriented x3 Extrem: General: No edema Objective Data Active Medications Acetaminophen (Acetaminophen 325 Mg Tablet) 650 mg PO Q6H PRN PRN Reason: Pain, Mild (Pain Scale 1-3) Amlodipine Besylate (Amlodipine Besylate 5 Mg Tablet) 5 mg PO DAILY [facility] Last Admin: 06/18/22 09:00 Dose: 5 mg Documented By: LISA Docusate Sodium (Docusate Sodium 100 Mg Capsule) 100 mg PO BID [facility] Last Admin: 06/18/22 09:00 Dose: Not Given Documented By: LISA Non-Admin Reason: Patient Refused Enoxaparin Sodium (Enoxaparin Sodium 40 Mg/0.4 Ml Syringe) 40 mg SUBCUT Q24H [facility] Last Admin: 06/17/22 15:25 Dose: 40 mg Documented By: LISA Fluticasone Propionate (Fluticasone Propionate Nasal 16 Gm [place]) 2 spray NOSTRIL-B DAILY [facility] Last Admin: 06/17/22 13:50 Dose: Not Given Documented By: LISA Non-Admin Reason: respiratory? Hydromorphone HCl (Hydromorphone Hcl 1 Mg/Ml Syringe) 1.5 mg IVPUSH Q2H PRN; Protocol PRN Reason: Pain, Severe (Pain Scale 7-10) Last Admin: 06/18/22 09:00 Dose: 1.5 mg Documented By: LISA Ampicillin Sodium/Sulbactam (Sodium 3 gm/ Sodium Chloride) 100 mls @ 200 mls/hr IV Q8H [facility] Last Infusion: 06/18/22 06:59 Dose: 0 mls/hr Documented By: GRACIA Omeprazole (Omeprazole 40 Mg Capsule.Dr) 40 mg PO DAILY@0600 [facility] Last Admin: 06/18/22 06:08 Dose: 40 mg Documented By: GRACIA Ondansetron HCl (Ondansetron Hcl 4 Mg/2 Ml Vial) 4 mg IVPUSH Q8H PRN PRN Reason: Nausea and Vomiting Pentoxifylline (Pentoxifylline Er 400 Mg Tablet.Er) 400 mg PO TID [facility] Last Admin: 06/18/22 08:59 Dose: 400 mg Documented By: LISA Pharmacy Consult (Consult Rx Perform Med Rec) 1 each MISCELLANE ONCE PRN PRN Reason: Consult order Sodium Chloride (0.9 % Sodium Chloride Flush 3 Ml Syringe) 3 ml IVFLUSH QSHIFT [facility] Last Admin: 06/18/22 09:00 Dose: 3 ml Documented By: LISA Tamsulosin HCl (Tamsulosin Hcl 0.4 Mg Capsule) 0.4 mg PO DAILY@1700 [facility] Last Admin: 06/17/22 18:19 Dose: 0.4 mg Documented By: LISA Labs CBC & Chem 7: 06/18/22 06:14 06/18/22 06:14 Labs: Laboratory Results - last 24 hr 06/18/22 06/18/22 06:14 06:14 MCV 83.2 MCH 27.2 MCHC 32.6 RDW 15.6 Plt Count 220 D MPV 10.7 Absolute Nucleated RBC 0.070 H Nucleated RBC % (auto) 0.3 H Anion Gap 17 Estim Creat Clear Calc 123.8 Estimated GFR > 60 Fasting Glucose 106 H Calcium 8.0 L Total Bilirubin 0.7 Direct Bilirubin 0.4 AST 72 H ALT 43 H Alkaline Phosphatase 95 D Total Protein 5.4 L Albumin 3.2 L Procedures Date of Service Date of Service: 06/18/22 Progress Note: A&P Assessment and plan (1) Pneumonia: Status: Acute (2) Acute pancreatitis: Status: Acute Plan Patient seems improved today with less abdominal pain and less abdominal distension. He is passing flatus and moving his bowels. Continue to monitor abdominal examination. Time Spent With Patient Time: Total time spent is greater than 50% in coordination of care (as documented) at patient's floor/unit and/or counseling patient: Quality Stroke Does the patient have a stroke diagnosis?: No VTE Prior VTE?: No VTE Risk Level:: Medical - moderate - high VTE Device Contraindication: Treatment Not Indicated VTE Drug Contraindication: N/A - Med Ordered
[2022-06-18 11:46] VITALS: BP 160/76; PULSE 82; RESP 18; TEMP 37.2; O2SAT 96
[2022-06-18] MEDS: Fluticasone Propionate Nasal 16 GM SPRAY 2 SPRAY NOSTRIL-B (14:11)
[2022-06-18 14:32] VITALS: BP 120/61; PULSE 94; RESP 18; TEMP 36.6; O2SAT 95
[2022-06-18] MEDS: Enoxaparin Sodium 40 MG/0.4 ML SYRINGE SUBCUT (14:32)
[2022-06-18] MEDS: Tamsulosin HCL 0.4 MG CAPSULE PO (17:40)
[2022-06-18 20:55] VITALS: BP 142/73; PULSE 94; RESP 18; TEMP 37; O2SAT 96
[2022-06-18 23:22] VITALS: BP 144/65; PULSE 91; RESP 18; TEMP 36.2; O2SAT 98
[2022-06-19] VITALS (9 sets, daily range): BP systolic 137–148; BP diastolic 55–72; PULSE 87–94; RESP 16–20; TEMP 36.6–37.8; O2SAT 94–96
[2022-06-19] MEDS: HYDROmorphone HCl 1 MG/ML SYRINGE 1.5 MG IVPUSH ×5 (03:13→20:47)
[2022-06-19] MEDS: Ampicillin Sodium/Sulbactam Na 3 GM in 0.9 % Sodium Chloride 100 ML IV ×3 (05:55→20:40)
[2022-06-19] MEDS: Omeprazole 40 MG CAPSULE.DR PO (05:55)
[2022-06-19 07:00] LABS: Hematocrit 26.8 % (42.0-52.0); Hemoglobin 8.5 g/dl (14.0-18.0); Mean Corpuscular HGB Conc 31.7 g/dl (31.0-36.0); Mean Corpuscular Hemoglobin 26.3 pg (27.0-33.0); Mean Platelet Volume 10.7 fL (9.4-12.4); NRBC Pct Auto 0.3 /100WBC (0.0-0.2); Platelet Count 213 X10*3/uL (160-400); Red Blood Count 3.23 X10*6/uL (4.60-5.80); Red Cell Distribution Width 15.8 % (11.0-16.0); White Blood Count 19.7 X10*3/uL (4.8-10.8)
[2022-06-19 07:35] LABS: Alanine Aminotransferase 48 U/L (0-40); Albumin Level 2.8 g/dL (3.5-5.0); Alkaline Phosphatase 111 U/L (39-117); Anion Gap 15 (12-20); Aspartate Amino Transferase 55 U/L (5-37); Bilirubin Direct 0.3 mg/dL (0.0-0.5); Bilirubin Total 0.5 mg/dL (0.0-1.0); Blood Urea Nitrogen 14 mg/dL (9-16); Calcium 7.7 mg/dL (8.4-10.2); Carbon Dioxide 31 mmol/L (22-29); Chloride 96 mmol/L (96-108); Creatinine Clr Calc Pharmacy 129.6; Estimated Glomerular Filt Rate > 60; Glucose Fasting 105 mg/dL (60-99); Potassium 2.9 mmol/L (3.3-5.1); Sodium 139 mmol/L (135-145); Total Protein 4.9 g/dL (6.5-8.0)
--- NOTE | 2022-06-19 07:36 | P.PNGS_ITS ---
Subjective Subjective Date of Service: 06/19/22 Patient reports: still having pain, pain is less and tolerating a regular diet Interval history: The patient reports that he is passing gas and moving his bowels. He denies any difficulty breathing or new chest pain. He otherwise denies interval change since I saw him on Sunday except that his diet is being advanced. Physical Exam Vital Signs: Vital Signs: Last Vital Signs Temp 100.0 F 06/19/22 03:12 Pulse 93 06/19/22 03:12 Resp 18 06/19/22 03:13 BP 137/68 06/19/22 03:12 Pulse Ox 94 06/19/22 03:12 O2 Del Method 06/19/22 03:12 O2 Flow Rate 2 06/19/22 03:12 BMI result Body Mass Index 32.8 NC/AT, PERRLA, EOMI Abdomen is overweight and soft with continued discomfort but it is markedly improved from admission No peritoneal sign is elicited to percuss Objective Data Active Medications Acetaminophen (Acetaminophen 325 Mg Tablet) 650 mg PO Q6H PRN PRN Reason: Pain, Mild (Pain Scale 1-3) Amlodipine Besylate (Amlodipine Besylate 5 Mg Tablet) 5 mg PO DAILY [facility] Last Admin: 06/18/22 09:00 Dose: 5 mg Documented By: LISA Docusate Sodium (Docusate Sodium 100 Mg Capsule) 100 mg PO BID [facility] Last Admin: 06/18/22 22:17 Dose: Not Given Documented By: AI Non-Admin Reason: Patient Refused Enoxaparin Sodium (Enoxaparin Sodium 40 Mg/0.4 Ml Syringe) 40 mg SUBCUT Q24H [facility] Last Admin: 06/18/22 14:32 Dose: 40 mg Documented By: LISA Fluticasone Propionate (Fluticasone Propionate Nasal 16 Gm [place]) 2 spray NOSTRIL-B DAILY [facility] Last Admin: 06/18/22 14:11 Dose: 2 spray Documented By: LISA Hydromorphone HCl (Hydromorphone Hcl 1 Mg/Ml Syringe) 1.5 mg IVPUSH Q2H PRN; Protocol PRN Reason: Pain, Severe (Pain Scale 7-10) Last Admin: 06/19/22 03:13 Dose: 1.5 mg Documented By: AI Ampicillin Sodium/Sulbactam (Sodium 3 gm/ Sodium Chloride) 100 mls @ 200 mls/hr IV Q8H [facility] Last Infusion: 06/19/22 06:44 Dose: 200 mls/hr Documented By: AI Omeprazole (Omeprazole 40 Mg Capsule.Dr) 40 mg PO DAILY@0600 [facility] Last Admin: 06/19/22 05:55 Dose: 40 mg Documented By: AI Ondansetron HCl (Ondansetron Hcl 4 Mg/2 Ml Vial) 4 mg IVPUSH Q8H PRN PRN Reason: Nausea and Vomiting Pentoxifylline (Pentoxifylline Er 400 Mg Tablet.Er) 400 mg PO TID [facility] Last Admin: 06/18/22 22:08 Dose: 400 mg Documented By: AI Pharmacy Consult (Consult Rx Perform Med Rec) 1 each MISCELLANE ONCE PRN PRN Reason: Consult order Sodium Chloride (0.9 % Sodium Chloride Flush 3 Ml Syringe) 3 ml IVFLUSH QSHIFT [facility] Last Admin: 06/18/22 22:11 Dose: 3 ml Documented By: AI Tamsulosin HCl (Tamsulosin Hcl 0.4 Mg Capsule) 0.4 mg PO DAILY@1700 [facility] Last Admin: 06/18/22 17:40 Dose: 0.4 mg Documented By: LISA Labs CBC & Chem 7: 06/19/22 05:15 06/19/22 06:00 Labs: Laboratory Results - last 24 hr 06/19/22 06/19/22 05:15 06:00 MCV 83.0 MCH 26.3 L MCHC 31.7 RDW 15.8 Plt Count 213 MPV 10.7 Absolute Nucleated RBC 0.050 H Nucleated RBC % (auto) 0.3 H Anion Gap 15 Estim Creat Clear Calc 129.6 Estimated GFR > 60 Fasting Glucose 105 H Calcium 7.7 L Total Bilirubin 0.5 Direct Bilirubin 0.3 AST 55 H ALT 48 H Alkaline Phosphatase 111 Total Protein 4.9 L Albumin 2.[address] scan - chest: Radiologist's impression: [address] [address] Cardiology Progress Note Signed Patient: Igor Allen MR#: [id number] : 1960 Acct:[id number] Age/Sex: 61 / M Loc: .[facility] [place] [id number] ?? ? Attending Dr: Carson Flores MD cc: ~ Subjective Subjective Date of Service: 06/17/22 Interval history: Patient seen examined at bedside.? He has been passing gas and has been given some liquid diet.? Still on supplemental oxygen. Physical Exam Vital Signs: Last Vital Signs Temp ?98.4 F ?06/17/22 11:24 Pulse ?100 ?06/17/22 11:24 Resp ?18 ?06/17/22 11:24 BP ?175/82 H ?06/17/22 11:24 Pulse Ox ?95 ?06/17/22 11:24 O2 Del Method ? ?06/17/22 11:24 O2 Flow Rate ?2 ?06/17/22 11:24 BMI result Body Mass Index ? 32.8? GENERAL APPEARANCE: in no acute distress, pleasant. NECK: no carotid bruit, positive jugular venous distention. SKIN: no suspicious lesions, warm and dry. HEART: no murmurs, regular rate and rhythm. LUNGS:? Crackles both bases. ABDOMEN: soft, distended, nontender. EXTREMITIES: no edema. PERIPHERAL PULSES: equal. NEUROLOGIC: No gross deficits, AAO X 3 Objective Labs and Meds Result diagrams: 06/17/22 06:01? 06/17/22 06:01? Lab results: Laboratory Results - last 24 hr ? 06/17/22 06/17/22 ? 06:01 06:01 WBC ?16.8 H ? RBC ?3.26 L ? Hgb ?8.7 L ? Hct ?26.9 L ? MCV ?82.5 ? MCH ?26.7 L ? MCHC ?32.3 ? RDW ?15.2 ? Plt Count ?168 ? MPV ?10.6 ? Absolute Nucleated RBC ?0.030 H ? Nucleated RBC % (auto) ?0.2 ? Sodium ? ?138 Potassium ? ?3.3 Chloride ? ?99 Carbon Dioxide ? ?26 Anion Gap ? ?16 BUN ? ?20 H Creatinine ? ?0.66 Estim Creat Clear Calc ? ?127.6 Estimated GFR ? ?> 60 Fasting Glucose ? ?104 H Calcium ? ?7.8 L Total Bilirubin ? ?1.1 H D Direct Bilirubin ? ?0.5 AST ? ?31 ALT ? ?36 Alkaline Phosphatase ? ?69 Total Protein ? ?5.0 L Albumin ? ?3.1 L Imaging Radiologist's impression: Impressions Abdomen/Pelvis CT? 06/16/22 13:50 IMPRESSION: 1.? Extensive peripancreatic stranding consistent with pancreatitis, similar to slightly improved from 06/13/2022. Small amount of free fluid, without appreciable focal collection. 2.? Cholelithiasis. 3.? Multifocal regions of pulmonary consolidation bilaterally, left lung greater than right, which may be infectious. 4.? Small pleural effusions. Adjacent regions of dense opacity in the dependent lower lobes are favored to at least partially represent atelectasis. Chest CT? 06/16/22 13:50 IMPRESSION: 1.? Extensive peripancreatic stranding consistent with pancreatitis, similar to slightly improved from 06/13/2022. Small amount of free fluid, without appreciable focal collection. 2.? Cholelithiasis. 3.? Multifocal regions of pulmonary consolidation bilaterally, left lung greater than right, which may be infectious. 4.? Small pleural effusions. Adjacent regions of dense opacity in the dependent lower lobes are favored to at least partially represent atelectasis. Microbiology Microbiology Results: Microbiology 06/13/22 11:00 Blood Culture - Final Blood - Venous No growth after 5 days. 06/13/22 11:00 Blood Culture - Final Blood - Venous No growth after 5 days. Procedures Date of Service Date of Service: 06/19/22 Progress Note: A&P Assessment and plan (1) Pneumonia: Status: Acute (2) Elevated troponin: Status: Acute (3) Dyspnea: Status: Acute (4) Hyperlipidemia: Status: Acute (5) Gallstones: Status: Acute (6) Acute pancreatitis: Status: Acute Plan Current pneumonia and recent MS preclude acute surgical intervention at this time. Will coordinate with Cardiology regarding timing of cholecystectomy. Time Spent With Patient Time: Total time spent is greater than 50% in coordination of care (as documented) at patient's floor/unit and/or counseling patient: Quality Stroke Does the patient have a stroke diagnosis?: No VTE Prior VTE?: No VTE Risk Level:: Medical - moderate - high VTE Device Contraindication: Treatment Not Indicated VTE Drug Contraindication: N/A - Med Ordered
[2022-06-19] MEDS: Pentoxifylline ER 400 MG TABLET.ER PO ×3 (09:21→20:41)
[2022-06-19] MEDS: amLODIPine Besylate 5 MG TABLET PO (09:21)
[2022-06-19] MEDS: Potassium Chloride ER 20 MEQ TAB.ER.PRT 40 MEQ PO (09:21)
[2022-06-19] MEDS: 0.9 % Sodium Chloride Flush 3 ML SYRINGE IVFLUSH ×3 (09:21→20:49)
--- NOTE | 2022-06-19 09:54 | HO.PM.IMPN ---
Subjective Subjective Date of Service: 06/19/22 Interval History: cc: abd pain interval history:slowly improving, tolerating small amounts of solids, having BM Cardiovascular Cardiovascular: Reports no additional cardiovascular complaints Respiratory Respiratory: Reports no additional respiratory complaints Physical Exam Vital Signs: Vital Signs: Last Vital Signs Temp 99.1 F 06/19/22 07:50 Pulse 90 06/19/22 07:50 Resp 20 06/19/22 07:50 BP 139/70 06/19/22 07:50 Pulse Ox 95 06/19/22 07:50 O2 Del Method 06/19/22 07:50 O2 Flow Rate 1 06/19/22 07:50 BMI result Body Mass Index 32.8 General: AO X 3, in some acute distress Resp: CTA bilateral, no accessory muscles used CVS: S1,S2,RRR GI: soft, tender, distended Neuro: motor grossly intact, alert Psych: appropriate affect, appropriate insight Objective Data Active Medications Acetaminophen (Acetaminophen 325 Mg Tablet) 650 mg PO Q6H PRN PRN Reason: Pain, Mild (Pain Scale 1-3) Amlodipine Besylate (Amlodipine Besylate 5 Mg Tablet) 5 mg PO DAILY [facility] Last Admin: 06/19/22 09:21 Dose: 5 mg Documented By: MEL Docusate Sodium (Docusate Sodium 100 Mg Capsule) 100 mg PO BID [facility] Last Admin: 06/19/22 09:22 Dose: Not Given Documented By: MEL Non-Admin Reason: Patient Refused Enoxaparin Sodium (Enoxaparin Sodium 40 Mg/0.4 Ml Syringe) 40 mg SUBCUT Q24H [facility] Last Admin: 06/18/22 14:32 Dose: 40 mg Documented By: LISA Fluticasone Propionate (Fluticasone Propionate Nasal 16 Gm [place]) 2 spray NOSTRIL-B DAILY [facility] Last Admin: 06/18/22 14:11 Dose: 2 spray Documented By: LISA Hydromorphone HCl (Hydromorphone Hcl 1 Mg/Ml Syringe) 1.5 mg IVPUSH Q2H PRN; Protocol PRN Reason: Pain, Severe (Pain Scale 7-10) Last Admin: 06/19/22 09:21 Dose: 1.5 mg Documented By: MEL Ampicillin Sodium/Sulbactam (Sodium 3 gm/ Sodium Chloride) 100 mls @ 200 mls/hr IV Q8H [facility] Last Infusion: 06/19/22 06:44 Dose: 200 mls/hr Documented By: AI Omeprazole (Omeprazole 40 Mg Capsule.Dr) 40 mg PO DAILY@0600 [facility] Last Admin: 06/19/22 05:55 Dose: 40 mg Documented By: AI Ondansetron HCl (Ondansetron Hcl 4 Mg/2 Ml Vial) 4 mg IVPUSH Q8H PRN PRN Reason: Nausea and Vomiting Pentoxifylline (Pentoxifylline Er 400 Mg Tablet.Er) 400 mg PO TID [facility] Last Admin: 06/19/22 09:21 Dose: 400 mg Documented By: MEL Pharmacy Consult (Consult Rx Perform Med Rec) 1 each MISCELLANE ONCE PRN PRN Reason: Consult order Sodium Chloride (0.9 % Sodium Chloride Flush 3 Ml Syringe) 3 ml IVFLUSH QSHIFT [facility] Last Admin: 06/19/22 09:21 Dose: 3 ml Documented By: MEL Tamsulosin HCl (Tamsulosin Hcl 0.4 Mg Capsule) 0.4 mg PO DAILY@1700 [facility] Last Admin: 06/18/22 17:40 Dose: 0.4 mg Documented By: LISA Labs CBC & Chem 7: 06/19/22 05:15 06/19/22 06:00 Labs: Laboratory Results - last 24 hr 06/19/22 06/19/22 05:15 06:00 MCV 83.0 MCH 26.3 L MCHC 31.7 RDW 15.8 Plt Count 213 MPV 10.7 Absolute Nucleated RBC 0.050 H Nucleated RBC % (auto) 0.3 H Anion Gap 15 Estim Creat Clear Calc 129.6 Estimated GFR > 60 Fasting Glucose 105 H Calcium 7.7 L Total Bilirubin 0.5 Direct Bilirubin 0.3 AST 55 H ALT 48 H Alkaline Phosphatase 111 Total Protein 4.9 L Albumin 2.8 L Microbiology Microbiology Results: Microbiology 06/13/22 11:00 Blood Culture - Final Blood - Venous No growth after 5 days. 06/13/22 11:00 Blood Culture - Final Blood - Venous No growth after 5 days. Assessment and Plan (1) Acute pancreatitis: Status: Acute Plan 61-year-old male with past medical history of hypertension, hyperlipidemia, GERD, BPH presented with abdominal pain, found to have acute pancreatitis Acute pancreatitis Likely gallstone now complicated by acute hypoxic respiratory failure cxr with bilateral opacities, ?ARDS, CT chest showing bilateral L>R possible pna, also complicated by NSTEMI type II Continue IV Dilaudid MRCP without obstruction monitor lfts, wbcs, - improving, wean o2 as tolerated continue empiric unasyn, cultures negative tolerated some solid diet continue to advance as tolerated still requiring iv pain meds Hypertension Continue amlodipine Hyperlipidemia holding statin incase drug associated pancreatitis GERD PPI BPH flomax dvt prophylaxis - lovenox full code reason for continued hospitalization:hypoxia, severe pain requiring iv opiates Quality Stroke Does the patient have a stroke diagnosis?: No VTE Prior VTE?: No VTE Risk Level:: Medical - moderate - high VTE Device Contraindication: Treatment Not Indicated VTE Drug Contraindication: N/A - Med Ordered
[2022-06-19] MEDS: Enoxaparin Sodium 40 MG/0.4 ML SYRINGE SUBCUT (13:42)
--- NOTE | 2022-06-19 16:38 | MHC.CM.PN ---
Male DX Pancreatitis DP home no services family transport. No DC today per MD rounds, patient is not ready.
[2022-06-19] MEDS: Tamsulosin HCL 0.4 MG CAPSULE PO (18:08)
[2022-06-19] MEDS: Docusate Sodium 100 MG CAPSULE PO (20:41)
[2022-06-20] VITALS (7 sets, daily range): BP systolic 135–162; BP diastolic 45–73; PULSE 84–91; RESP 16–20; TEMP 36.1–38.2; O2SAT 92–96
[2022-06-20] MEDS: Omeprazole 40 MG CAPSULE.DR PO (06:06)
[2022-06-20] MEDS: HYDROmorphone HCl 1 MG/ML SYRINGE 1.5 MG IVPUSH ×3 (06:09→20:48)
[2022-06-20] MEDS: Ampicillin Sodium/Sulbactam Na 3 GM in 0.9 % Sodium Chloride 100 ML IV ×3 (06:25→20:49)
[2022-06-20 06:59] LABS: Hematocrit 26.3 % (42.0-52.0); Hemoglobin 8.4 g/dl (14.0-18.0); Mean Corpuscular HGB Conc 31.9 g/dl (31.0-36.0); Mean Corpuscular Hemoglobin 26.3 pg (27.0-33.0); Mean Corpuscular Volume 82.4 fL (80.0-98.0); Mean Platelet Volume 10.3 fL (9.4-12.4); NRBC Pct Auto 0.2 /100WBC (0.0-0.2); Platelet Count 243 X10*3/uL (160-400); Red Blood Count 3.19 X10*6/uL (4.60-5.80); Red Cell Distribution Width 15.8 % (11.0-16.0); White Blood Count 22.3 X10*3/uL (4.8-10.8)
--- NOTE | 2022-06-20 07:32 | P.PNGS_ITS ---
Subjective Subjective Date of Service: 06/20/22 Patient reports: no new complaints and feels better Interval history: The patient denies any chest pain, difficulty breathing or shortness of breath. He reports abdominal fullness but that is pressure/pain is improved compared to admission. He is tolerating his diet. I reviewed that he likely had gallstone pancreatitis which resulted in a severe case of pancreatitis that stressed is heart and lungs. Given this, the intra- abdominal edema may make lap choly at an increased risk for open cholecystectomy. After reviewing the pros and cons, I have recommended that the patient follow-up with me on an outpatient basis for interval cholecystectomy in approximately 6 weeks. The option of a 2nd opinion was also offered but declined by the patient this morning. Physical Exam Vital Signs: Vital Signs: Last Vital Signs Temp 98.5 F 06/20/22 07:26 Pulse 88 06/20/22 07:26 Resp 18 06/20/22 07:26 BP 135/63 06/20/22 07:26 Pulse Ox 96 06/20/22 07:26 O2 Del Method 06/20/22 07:26 O2 Flow Rate 1 06/20/22 07:26 BMI result Body Mass Index 32.8 Abdomen is obese and distended but much less tender. No rebound, rigidity or guarding is present. Sclera are anicteric Objective Data Active Medications Acetaminophen (Acetaminophen 325 Mg Tablet) 650 mg PO Q6H PRN PRN Reason: Pain, Mild (Pain Scale 1-3) Amlodipine Besylate (Amlodipine Besylate 5 Mg Tablet) 5 mg PO DAILY [facility] Last Admin: 06/19/22 09:21 Dose: 5 mg Documented By: MEL Docusate Sodium (Docusate Sodium 100 Mg Capsule) 100 mg PO BID [facility] Last Admin: 06/19/22 20:41 Dose: 100 mg Documented By: SARTHAK Enoxaparin Sodium (Enoxaparin Sodium 40 Mg/0.4 Ml Syringe) 40 mg SUBCUT Q24H [facility] Last Admin: 06/19/22 13:42 Dose: 40 mg Documented By: WENDY Fluticasone Propionate (Fluticasone Propionate Nasal 16 Gm [place]) 2 spray NOSTRIL-B DAILY [facility] Last Admin: 06/19/22 10:28 Dose: Not Given Documented By: MEL Non-Admin Reason: Patient Refused Hydromorphone HCl (Hydromorphone Hcl 1 Mg/Ml Syringe) 1.5 mg IVPUSH Q2H PRN; Protocol PRN Reason: Pain, Severe (Pain Scale 7-10) Last Admin: 06/20/22 06:09 Dose: 1.5 mg Documented By: SARTHAK Ampicillin Sodium/Sulbactam (Sodium 3 gm/ Sodium Chloride) 100 mls @ 200 mls/hr IV Q8H [facility] Last Admin: 06/20/22 06:25 Dose: 200 mls/hr Documented By: SARTHAK Omeprazole (Omeprazole 40 Mg Capsule.Dr) 40 mg PO DAILY@0600 [facility] Last Admin: 06/20/22 06:06 Dose: 40 mg Documented By: SARTHAK Ondansetron HCl (Ondansetron Hcl 4 Mg/2 Ml Vial) 4 mg IVPUSH Q8H PRN PRN Reason: Nausea and Vomiting Pentoxifylline (Pentoxifylline Er 400 Mg Tablet.Er) 400 mg PO TID [facility] Last Admin: 06/19/22 20:41 Dose: 400 mg Documented By: SARTHAK Pharmacy Consult (Consult Rx Perform Med Rec) 1 each MISCELLANE ONCE PRN PRN Reason: Consult order Sodium Chloride (0.9 % Sodium Chloride Flush 3 Ml Syringe) 3 ml IVFLUSH QSHIFT [facility] Last Admin: 06/19/22 20:49 Dose: 3 ml Documented By: SARTHAK Tamsulosin HCl (Tamsulosin Hcl 0.4 Mg Capsule) 0.4 mg PO DAILY@1700 [facility] Last Admin: 06/19/22 18:08 Dose: 0.4 mg Documented By: WENDY Labs CBC & Chem 7: 06/20/22 06:36 06/19/22 06:00 Labs: Laboratory Results - last 24 hr 06/19/22 06/20/22 06:00 06:36 MCV 82.4 MCH 26.3 L MCHC 31.9 RDW 15.8 Plt Count 243 MPV 10.3 Absolute Nucleated RBC 0.040 H Nucleated RBC % (auto) 0.2 Anion Gap 15 Estim Creat Clear Calc 129.6 Estimated GFR > 60 Fasting Glucose 105 H Calcium 7.7 L Total Bilirubin 0.5 Direct Bilirubin 0.3 AST 55 H ALT 48 H Alkaline Phosphatase 111 Total Protein 4.9 L Albumin 2.8 L Procedures Date of Service Date of Service: 06/20/22 Progress Note: A&P Assessment and plan (1) Acute pancreatitis: Status: Acute (2) Gallstones: Status: Acute (3) Pneumonia: Status: Acute (4) Elevated troponin: Status: Acute (5) Hyperlipidemia: Status: Acute Plan I reviewed that he likely had gallstone pancreatitis which resulted in a severe case of pancreatitis that stressed is heart and lungs. Given this, the intra- abdominal edema may make lap choly at an increased risk for open ch olecystectomy. After reviewing the pros and cons, I have recommended that the patient follow-up with me on an outpatient basis for interval cholecystectomy in approximately 6 weeks. The option of a 2nd opinion was also offered but declined by the patient this morning. Continue present management. At this time, will hold on cholecystectomy until the patient is improved from his pneumonia and pancreatitis, likely in a month or so. Time Spent With Patient Time: Total time spent is greater than 50% in coordination of care (as documented) at patient's floor/unit and/or counseling patient: Quality Stroke Does the patient have a stroke diagnosis?: No VTE Prior VTE?: No VTE Risk Level:: Medical - moderate - high VTE Device Contraindication: Treatment Not Indicated VTE Drug Contraindication: N/A - Med Ordered
[2022-06-20 07:45] LABS: Anion Gap 16 (12-20); Blood Urea Nitrogen 10 mg/dL (9-16); Calcium 7.8 mg/dL (8.4-10.2); Carbon Dioxide 29 mmol/L (22-29); Chloride 96 mmol/L (96-108); Estimated Glomerular Filt Rate > 60; Glucose Fasting 127 mg/dL (60-99); Potassium 3.1 mmol/L (3.3-5.1); Sodium 138 mmol/L (135-145)
[2022-06-20] MEDS: amLODIPine Besylate 5 MG TABLET PO (08:05)
[2022-06-20] MEDS: 0.9 % Sodium Chloride Flush 3 ML SYRINGE IVFLUSH ×2 (08:05→20:49)
[2022-06-20] MEDS: Pentoxifylline ER 400 MG TABLET.ER PO ×3 (08:05→20:48)
--- NOTE | 2022-06-20 09:55 | P.PNIM_ITS ---
Subjective Subjective Date of Service: 06/20/22 Interval History: cc: abd pain interval history:overall improving, less sob, tolerating solids Cardiovascular Cardiovascular: Reports no additional cardiovascular complaints Respiratory Respiratory: Reports no additional respiratory complaints Physical Exam Vital Signs: Vital Signs: Last Vital Signs Temp 98.5 F 06/20/22 07:26 Pulse 88 06/20/22 07:26 Resp 18 06/20/22 07:26 BP 135/63 06/20/22 07:26 Pulse Ox 96 06/20/22 07:26 O2 Del Method 06/20/22 07:26 O2 Flow Rate 1 06/20/22 07:26 BMI result Body Mass Index 32.8 General: AO X 3, in some acute distress Resp: Cta bilateral, some accessory muscles used CVS: S1,S2,RRR GI: soft, less tender, distended Neuro: motor grossly intact, alert Psych: appropriate affect, appropriate insight Objective Data Active Medications Acetaminophen (Acetaminophen 325 Mg Tablet) 650 mg PO Q6H PRN PRN Reason: Pain, Mild (Pain Scale 1-3) Amlodipine Besylate (Amlodipine Besylate 5 Mg Tablet) 5 mg PO DAILY [facility] Last Admin: 06/20/22 08:05 Dose: 5 mg Documented By: ROSEMARY Docusate Sodium (Docusate Sodium 100 Mg Capsule) 100 mg PO BID [facility] Last Admin: 06/20/22 08:04 Dose: Not Given Documented By: ROSEMARY Non-Admin Reason: Patient Refused Enoxaparin Sodium (Enoxaparin Sodium 40 Mg/0.4 Ml Syringe) 40 mg SUBCUT Q24H [facility] Last Admin: 06/19/22 13:42 Dose: 40 mg Documented By: WENDY Fluticasone Propionate (Fluticasone Propionate Nasal 16 Gm [place]) 2 spray NOSTRIL-B DAILY [facility] Last Admin: 06/20/22 08:41 Dose: Not Given Documented By: ROSEMARY Non-Admin Reason: Patient Refused Hydromorphone HCl (Hydromorphone Hcl 1 Mg/Ml Syringe) 1.5 mg IVPUSH Q2H PRN; Protocol PRN Reason: Pain, Severe (Pain Scale 7-10) Last Admin: 06/20/22 06:09 Dose: 1.5 mg Documented By: SARTHAK Ampicillin Sodium/Sulbactam (Sodium 3 gm/ Sodium Chloride) 100 mls @ 200 mls/hr IV Q8H [facility] Last Infusion: 06/20/22 08:02 Dose: 0 mls/hr Documented By: ROSEMARY Omeprazole (Omeprazole 40 Mg Capsule.Dr) 40 mg PO DAILY@0600 [facility] Last Admin: 06/20/22 06:06 Dose: 40 mg Documented By: SARTHAK Ondansetron HCl (Ondansetron Hcl 4 Mg/2 Ml Vial) 4 mg IVPUSH Q8H PRN PRN Reason: Nausea and Vomiting Pentoxifylline (Pentoxifylline Er 400 Mg Tablet.Er) 400 mg PO TID [facility] Last Admin: 06/20/22 08:05 Dose: 400 mg Documented By: ROSEMARY Pharmacy Consult (Consult Rx Perform Med Rec) 1 each MISCELLANE ONCE PRN PRN Reason: Consult order Sodium Chloride (0.9 % Sodium Chloride Flush 3 Ml Syringe) 3 ml IVFLUSH QSHIFT [facility] Last Admin: 06/20/22 08:05 Dose: 3 ml Documented By: ROSEMARY Tamsulosin HCl (Tamsulosin Hcl 0.4 Mg Capsule) 0.4 mg PO DAILY@1700 [facility] Last Admin: 06/19/22 18:08 Dose: 0.4 mg Documented By: WENDY Labs CBC & Chem 7: 06/20/22 06:36 06/20/22 06:36 Labs: Laboratory Results - last 24 hr 06/20/22 06/20/22 06:36 06:36 MCV 82.4 MCH 26.3 L MCHC 31.9 RDW 15.8 Plt Count 243 MPV 10.3 Absolute Nucleated RBC 0.040 H Nucleated RBC % (auto) 0.2 Anion Gap 16 Estim Creat Clear Calc 117.0 Estimated GFR > 60 Fasting Glucose 127 H Calcium 7.8 L Assessment and Plan (1) Acute pancreatitis: Status: Acute Plan 61-year-old male with past medical history of hypertension, hyperlipidemia, GERD, BPH presented with abdominal pain, found to have acute pancreatitis Acute pancreatitis Likely gallstone complicated by acute hypoxic respiratory failure cxr with bilateral opacities, ?ARDS, CT chest showing bilateral L>R possible pna, also complicated by NSTEMI type II Continue IV Dilaudid MRCP without obstruction monitor lfts, wbcs, -leukocytosis initially improved, now increasing again, but with clinical improvement, will continue to monitor continue empiric unasyn, cultures negative tolerating some solid diet continue to advance as tolerated Hypertension Continue amlodipine Hyperlipidemia holding statin incase drug associated pancreatitis GERD PPI BPH flomax dvt prophylaxis - lovenox full code reason for continued hospitalization:hypoxia, requiring iv opiates Quality Stroke Does the patient have a stroke diagnosis?: No VTE Prior VTE?: No VTE Risk Level:: Medical - moderate - high VTE Device Contraindication: Treatment Not Indicated VTE Drug Contraindication: N/A - Med Ordered
[2022-06-20] MEDS: Enoxaparin Sodium 40 MG/0.4 ML SYRINGE SUBCUT (15:27)
[2022-06-20] MEDS: Tamsulosin HCL 0.4 MG CAPSULE PO (18:19)
[2022-06-21] VITALS (7 sets, daily range): BP systolic 129–175; BP diastolic 72–82; PULSE 82–89; RESP 16–20; TEMP 35.7–37.3; O2SAT 93–95
[2022-06-21] MEDS: Ampicillin Sodium/Sulbactam Na 3 GM in 0.9 % Sodium Chloride 100 ML IV ×3 (05:47→21:27)
[2022-06-21] MEDS: HYDROmorphone HCl 1 MG/ML SYRINGE 1.5 MG IVPUSH ×2 (05:47→10:05)
[2022-06-21] MEDS: Omeprazole 40 MG CAPSULE.DR PO (05:47)
[2022-06-21 06:34] LABS: Hematocrit 26.3 % (42.0-52.0); Hemoglobin 8.7 g/dl (14.0-18.0); Mean Corpuscular HGB Conc 33.1 g/dl (31.0-36.0); Mean Corpuscular Hemoglobin 27.5 pg (27.0-33.0); Mean Corpuscular Volume 83.2 fL (80.0-98.0); Mean Platelet Volume 10.4 fL (9.4-12.4); NRBC Pct Auto 0.2 /100WBC (0.0-0.2); Platelet Count 270 X10*3/uL (160-400); Red Blood Count 3.16 X10*6/uL (4.60-5.80); Red Cell Distribution Width 15.8 % (11.0-16.0); White Blood Count 17.2 X10*3/uL (4.8-10.8)
[2022-06-21 07:04] LABS: Blood Urea Nitrogen 9 mg/dL (9-16); Calcium 7.8 mg/dL (8.4-10.2); Estimated Glomerular Filt Rate > 60; Glucose Fasting 148 mg/dL (60-99)
[2022-06-21 07:16] LABS: Anion Gap 18 (12-20); Carbon Dioxide 27 mmol/L (22-29); Chloride 98 mmol/L (96-108); Potassium 2.9 mmol/L (3.3-5.1); Sodium 140 mmol/L (135-145)
[2022-06-21] MEDS: 0.9 % Sodium Chloride Flush 3 ML SYRINGE IVFLUSH ×3 (10:05→21:28)
[2022-06-21] MEDS: Pentoxifylline ER 400 MG TABLET.ER PO ×3 (10:09→21:27)
[2022-06-21] MEDS: amLODIPine Besylate 5 MG TABLET PO (10:09)
[2022-06-21] MEDS: Potassium Chloride Packet 20 MEQ PACKET 40 MEQ PO ×2 (10:10→14:12)
[2022-06-21] MEDS: Fluticasone Propionate Nasal 16 GM SPRAY 2 SPRAY NOSTRIL-B (10:14)
--- NOTE | 2022-06-21 14:04 | P.PNIM_ITS ---
Subjective Subjective Date of Service: 06/21/22 Interval History: the patient was seen and evaluated this morning Laying in bed, feels much better overall Tolerating diet, pain has been decreasing on room No reported other overnight events. Systemic review: No fever, chills or weakness No chest pain, palpitation No shortness of breath or coughing abdominal pain with food, mild nausea No urinary symptoms No any rash or wounds Physical Exam Vital Signs: Vital Signs: Last Vital Signs Temp 99.0 F 06/21/22 11:20 Pulse 87 06/21/22 11:20 Resp 18 06/21/22 11:20 BP 175/78 H 06/21/22 11:20 Pulse Ox 94 06/21/22 11:20 O2 Del Method 06/21/22 11:20 O2 Flow Rate 1 06/20/22 19:44 BMI result Body Mass Index 32.8 Const: Other: Constitutional : Alert, oriented, not in distress Neck : Normal inspection, Supple Cardiovascular : RRR, no JVP, no lower extremity edema Respiratory : fair bilateral air entry, no crackles, wheezes or rhonchi Gastrointestinal: soft, lax, Normal bowel sounds, generalized tenderness with palpation, no surgical signs Skin : Warm, Dry Neurological : Alert & oriented x3, No focal deficit Objective Data Active Medications Acetaminophen (Acetaminophen 325 Mg Tablet) 650 mg PO Q6H PRN PRN Reason: Pain, Mild (Pain Scale 1-3) Amlodipine Besylate (Amlodipine Besylate 5 Mg Tablet) 5 mg PO DAILY [facility] Last Admin: 06/21/22 10:09 Dose: 5 mg Documented By: ESTHER Docusate Sodium (Docusate Sodium 100 Mg Capsule) 100 mg PO BID [facility] Last Admin: 06/21/22 10:11 Dose: Not Given Documented By: ESTHER Non-Admin Reason: Patient Refused Enoxaparin Sodium (Enoxaparin Sodium 40 Mg/0.4 Ml Syringe) 40 mg SUBCUT Q24H [facility] Last Admin: 06/20/22 15:27 Dose: 40 mg Documented By: ROSEMARY Fluticasone Propionate (Fluticasone Propionate Nasal 16 Gm [place]) 2 spray NOSTRIL-B DAILY [facility] Last Admin: 06/21/22 10:14 Dose: 2 spray Documented By: ESTHER Hydromorphone HCl (Hydromorphone Hcl 1 Mg/Ml Syringe) 0.5 mg IVPUSH Q4H PRN; Protocol PRN Reason: Pain, Severe (Pain Scale 7-10) Ampicillin Sodium/Sulbactam (Sodium 3 gm/ Sodium Chloride) 100 mls @ 200 mls/hr IV Q8H [facility] Last Infusion: 06/21/22 06:32 Dose: 0 mls/hr Documented By: TAMIR Omeprazole (Omeprazole 40 Mg Capsule.Dr) 40 mg PO DAILY@0600 [facility] Last Admin: 06/21/22 05:47 Dose: 40 mg Documented By: TAMIR Ondansetron HCl (Ondansetron Hcl 4 Mg/2 Ml Vial) 4 mg IVPUSH Q8H PRN PRN Reason: Nausea and Vomiting Oxycodone HCl (Oxycodone Hcl Immed Release 5 Mg Tablet) 5 mg PO Q4H PRN PRN Reason: Pain, Severe (Pain Scale 7-10) Pentoxifylline (Pentoxifylline Er 400 Mg Tablet.Er) 400 mg PO TID [facility] Last Admin: 06/21/22 10:09 Dose: 400 mg Documented By: ESTHER Pharmacy Consult (Consult Rx Perform Med Rec) 1 each MISCELLANE ONCE PRN PRN Reason: Consult order Sodium Chloride (0.9 % Sodium Chloride Flush 3 Ml Syringe) 3 ml IVFLUSH QSHIFT [facility] Last Admin: 06/21/22 10:05 Dose: 3 ml Documented By: ESTHER Tamsulosin HCl (Tamsulosin Hcl 0.4 Mg Capsule) 0.4 mg PO DAILY@1700 [facility] Last Admin: 06/20/22 18:19 Dose: 0.4 mg Documented By: ROSEMARY Labs CBC & Chem 7: 06/21/22 06:00 06/21/22 06:00 Labs: Laboratory Results - last 24 hr 06/21/22 06/21/22 06:00 06:00 MCV 83.2 MCH 27.5 MCHC 33.1 RDW 15.8 Plt Count 270 MPV 10.4 Absolute Nucleated RBC 0.030 H Nucleated RBC % (auto) 0.2 Anion Gap 18 Estim Creat Clear Calc 122.0 Estimated GFR > 60 Fasting Glucose 148 H Calcium 7.8 L Assessment and Plan (1) Pneumonia: Status: Acute (2) Elevated troponin: Status: Acute (3) Acute pancreatitis: Status: Acute Plan 61-year-old male with past medical history of hypertension, hyperlipidemia, GERD, BPH presented with abdominal pain, found to have acute pancreatitis Acute pancreatitis complicated by NSTEMI type II Likely secondary to gallstone MRCP without obstruction decreased IV Dilaudid , start p.r.n. oxycodone advanced diet as tolerated acute hypoxic respiratory failure Secondary to pneumonia, 2/2 acute pancreatitis cxr with bilateral opacities, CT chest showing bilateral L>R possible pna, also continue empiric unasyn, cultures negative wean home oxygen transaminitis Trending down Monitor LFT Hypokalemia Potassium of 2.9 to give replacement and follow BMP Hypertension Continue amlodipine Hyperlipidemia holding statin incase drug associated pancreatitis GERD PPI BPH flomax dvt prophylaxis - lovenox full code reason for continued hospitalization:Advancing diet, IV opiates weaning down for safe discharge planning. Quality Stroke Does the patient have a stroke diagnosis?: No VTE Prior VTE?: No VTE Risk Level:: Medical - moderate - high VTE Device Contraindication: Treatment Not Indicated VTE Drug Contraindication: N/A - Med Ordered
[2022-06-21] MEDS: Enoxaparin Sodium 40 MG/0.4 ML SYRINGE SUBCUT (14:13)
--- NOTE | 2022-06-21 14:22 | P.PNGS_ITS ---
Subjective Subjective Date of Service: 06/21/22 Patient reports: no new complaints, pain is less and tolerating a regular diet Interval history: The patient continues to tolerate a diet but reports fullness in his abdomen. When pressed, he notes he is feeling better than earlier in the week. No nausea, vomiting and his dyspnea has improved. Otherwise, there are no focal neurologic symptoms, chest pain or difficulty breathing. Physical Exam Vital Signs: Vital Signs: Last Vital Signs Temp 99.0 F 06/21/22 11:20 Pulse 87 06/21/22 11:20 Resp 18 06/21/22 11:20 BP 175/78 H 06/21/22 11:20 Pulse Ox 94 06/21/22 11:20 O2 Del Method 06/21/22 11:20 O2 Flow Rate 1 06/20/22 19:44 BMI result Body Mass Index 32.8 Patient is nontoxic NC/AT, PERRLA, EOMI Abdomen is unchanged and Obese/distended with vague discomfort. His tenderness is markedly improved with no peritoneal sign. No overt hernias are present. Objective Data Active Medications Acetaminophen (Acetaminophen 325 Mg Tablet) 650 mg PO Q6H PRN PRN Reason: Pain, Mild (Pain Scale 1-3) Amlodipine Besylate (Amlodipine Besylate 5 Mg Tablet) 5 mg PO DAILY [facility] Last Admin: 06/21/22 10:09 Dose: 5 mg Documented By: ESTHER Docusate Sodium (Docusate Sodium 100 Mg Capsule) 100 mg PO BID [facility] Last Admin: 06/21/22 10:11 Dose: Not Given Documented By: ESTHER Non-Admin Reason: Patient Refused Enoxaparin Sodium (Enoxaparin Sodium 40 Mg/0.4 Ml Syringe) 40 mg SUBCUT Q24H [facility] Last Admin: 06/21/22 14:13 Dose: 40 mg Documented By: ESTHER Fluticasone Propionate (Fluticasone Propionate Nasal 16 Gm [place]) 2 spray NOSTRIL-B DAILY [facility] Last Admin: 06/21/22 10:14 Dose: 2 spray Documented By: ESTHER Hydromorphone HCl (Hydromorphone Hcl 1 Mg/Ml Syringe) 0.5 mg IVPUSH Q4H PRN; Protocol PRN Reason: Pain, Severe (Pain Scale 7-10) Ampicillin Sodium/Sulbactam (Sodium 3 gm/ Sodium Chloride) 100 mls @ 200 mls/hr IV Q8H [facility] Last Admin: 06/21/22 14:14 Dose: 200 mls/hr Documented By: ESTHER Omeprazole (Omeprazole 40 Mg Capsule.Dr) 40 mg PO DAILY@0600 [facility] Last Admin: 06/21/22 05:47 Dose: 40 mg Documented By: ANTALEIDA Ondansetron HCl (Ondansetron Hcl 4 Mg/2 Ml Vial) 4 mg IVPUSH Q8H PRN PRN Reason: Nausea and Vomiting Oxycodone HCl (Oxycodone Hcl Immed Release 5 Mg Tablet) 5 mg PO Q4H PRN PRN Reason: Pain, Severe (Pain Scale 7-10) Pentoxifylline (Pentoxifylline Er 400 Mg Tablet.Er) 400 mg PO TID [facility] Last Admin: 06/21/22 14:13 Dose: 400 mg Documented By: ESTHER Pharmacy Consult (Consult Rx Perform Med Rec) 1 each MISCELLANE ONCE PRN PRN Reason: Consult order Sodium Chloride (0.9 % Sodium Chloride Flush 3 Ml Syringe) 3 ml IVFLUSH QSHIFT [facility] Last Admin: 06/21/22 10:05 Dose: 3 ml Documented By: ESTHER Tamsulosin HCl (Tamsulosin Hcl 0.4 Mg Capsule) 0.4 mg PO DAILY@1700 [facility] Last Admin: 06/20/22 18:19 Dose: 0.4 mg Documented By: ROSEMARY Labs CBC & Chem 7: 06/21/22 06:00 06/21/22 06:00 Labs: Laboratory Results - last 24 hr 06/21/22 06/21/22 06:00 06:00 MCV 83.2 MCH 27.5 MCHC 33.1 RDW 15.8 Plt Count 270 MPV 10.4 Absolute Nucleated RBC 0.030 H Nucleated RBC % (auto) 0.2 Anion Gap 18 Estim Creat Clear Calc 122.0 Estimated GFR > 60 Fasting Glucose 148 H Calcium 7.8 L Procedures Date of Service Date of Service: 06/21/22 Progress Note: A&P Assessment and plan (1) Acute pancreatitis: Status: Acute (2) Elevated troponin: Status: Acute (3) Dyspnea: Status: Acute (4) Hyperlipidemia: Status: Acute (5) Gallstones: Status: Acute (6) Pneumonia: Status: Acute Plan The patient has continued leukocytosis. If this is unexpected, repeat CT to assess for possible abscess or fluid collection verses pneumonia could be considered. As noted yesterday, the patient has enough comorbidities at this time, I would hold on cholecystectomy for several weeks to allow him recovery from moderate- severe pancreatitis which will potentially complicate a laparoscopic procedure. Time Spent With Patient Time: Total time spent is greater than 50% in coordination of care (as documented) at patient's floor/unit and/or counseling patient: Quality Stroke Does the patient have a stroke diagnosis?: No VTE Prior VTE?: No VTE Risk Level:: Medical - moderate - high VTE Device Contraindication: Treatment Not Indicated VTE Drug Contraindication: N/A - Med Ordered
--- NOTE | 2022-06-21 16:27 | MHC.CM.PN ---
Per MD rounds, Patient is not ready to discharge today. DP home no services family transport.
[2022-06-21] MEDS: Tamsulosin HCL 0.4 MG CAPSULE PO (17:46)
[2022-06-21] MEDS: HYDROmorphone HCl 1 MG/ML SYRINGE 0.5 MG IVPUSH ×2 (17:47→23:34)
[2022-06-21] MEDS: Docusate Sodium 100 MG CAPSULE PO (21:27)
[2022-06-22 03:10] VITALS: BP 162/70; PULSE 84; RESP 20; TEMP 37.1; O2SAT 96
[2022-06-22] MEDS: diphenhydrAMINE HCL 25 MG TABLET PO (03:23)
[2022-06-22] MEDS: Acetaminophen 325 MG TABLET 650 MG PO (03:32)
[2022-06-22] MEDS: Ampicillin Sodium/Sulbactam Na 3 GM in 0.9 % Sodium Chloride 100 ML IV ×3 (05:39→21:30)
[2022-06-22] MEDS: Omeprazole 40 MG CAPSULE.DR PO (05:39)
[2022-06-22 06:37] LABS: Hemoglobin 9.3 g/dl (14.0-18.0); Mean Corpuscular HGB Conc 32.1 g/dl (31.0-36.0); Mean Corpuscular Hemoglobin 26.3 pg (27.0-33.0); Mean Corpuscular Volume 81.9 fL (80.0-98.0); Mean Platelet Volume 10.4 fL (9.4-12.4); NRBC Pct Auto 0.2 /100WBC (0.0-0.2); Platelet Count 357 X10*3/uL (160-400); Red Blood Count 3.54 X10*6/uL (4.60-5.80); Red Cell Distribution Width 15.9 % (11.0-16.0); White Blood Count 14.7 X10*3/uL (4.8-10.8)
[2022-06-22 06:55] LABS: Anion Gap 15 (12-20); Blood Urea Nitrogen 9 mg/dL (9-16); Calcium 8.2 mg/dL (8.4-10.2); Carbon Dioxide 28 mmol/L (22-29); Chloride 101 mmol/L (96-108); Estimated Glomerular Filt Rate > 60; Glucose Random 120 mg/dL (60-115); Potassium 3.6 mmol/L (3.3-5.1); Sodium 140 mmol/L (135-145)
[2022-06-22 07:01] LABS: Alanine Aminotransferase 59 U/L (0-40); Alkaline Phosphatase 139 U/L (39-117); Aspartate Amino Transferase 43 U/L (5-37); Bilirubin Direct 0.3 mg/dL (0.0-0.5); Bilirubin Total 0.5 mg/dL (0.0-1.0); Total Protein 5.9 g/dL (6.5-8.0)
[2022-06-22 07:49] VITALS: BP 157/85; PULSE 76; RESP 20; TEMP 36.7; O2SAT 96
[2022-06-22] MEDS: Docusate Sodium 100 MG CAPSULE PO ×2 (08:43→21:31)
[2022-06-22] MEDS: amLODIPine Besylate 5 MG TABLET PO (08:43)
[2022-06-22] MEDS: Pentoxifylline ER 400 MG TABLET.ER PO ×3 (08:43→21:31)
[2022-06-22 10:55] VITALS: BP 137/63; PULSE 79; RESP 20; TEMP 36.6; O2SAT 94
--- NOTE | 2022-06-22 10:58 | P.PNGS_ITS ---
Subjective Subjective Date of Service: 06/22/22 Patient reports: no new complaints, feels better and tolerating a regular diet Interval history: The patient denies any interval change since yesterday. He notes his abdomen still feels distended but denies any cough, urinary symptoms or diarrhea Physical Exam Vital Signs: Vital Signs: Last Vital Signs Temp 97.8 F 06/22/22 10:55 Pulse 79 06/22/22 10:55 Resp 20 06/22/22 10:55 BP 137/63 06/22/22 10:55 Pulse Ox 94 06/22/22 10:55 O2 Del Method 06/22/22 10:55 O2 Flow Rate 1 06/20/22 19:44 BMI result Body Mass Index 32.8 Abdomen is overweight and distended but less tender. No peritoneal sign is present Objective Data Active Medications Acetaminophen (Acetaminophen 325 Mg Tablet) 650 mg PO Q6H PRN PRN Reason: Pain, Mild (Pain Scale 1-3) Last Admin: 06/22/22 03:32 Dose: 650 mg Documented By: ELVIS Amlodipine Besylate (Amlodipine Besylate 5 Mg Tablet) 5 mg PO DAILY [facility] Last Admin: 06/22/22 08:43 Dose: 5 mg Documented By: DEYVI Docusate Sodium (Docusate Sodium 100 Mg Capsule) 100 mg PO BID [facility] [place] Last Admin: 06/22/22 08:43 Dose: 100 mg Documented By: DEYVI Enoxaparin Sodium (Enoxaparin Sodium 40 Mg/0.4 Ml Syringe) 40 mg SUBCUT Q24H [facility] Last Admin: 06/21/22 14:13 Dose: 40 mg Documented By: ESTHER Fluticasone Propionate (Fluticasone Propionate Nasal 16 Gm [place]) 2 spray NOSTRIL-B DAILY [facility] [place] Last Admin: 06/21/22 10:14 Dose: 2 spray Documented By: ESTHER Hydromorphone HCl (Hydromorphone Hcl 1 Mg/Ml Syringe) 0.5 mg IVPUSH Q4H PRN; Protocol PRN Reason: Pain, Severe (Pain Scale 7-10) Last Admin: 06/21/22 23:34 Dose: 0.5 mg Documented By: ELVIS Ampicillin Sodium/Sulbactam (Sodium 3 gm/ Sodium Chloride) 100 mls @ 200 mls/hr IV Q8H [facility] [place] Last Infusion: 06/22/22 07:16 Dose: 0 mls/hr Documented By: ELVIS Omeprazole (Omeprazole 40 Mg Capsule.Dr) 40 mg PO DAILY@0600 [facility] [place] Last Admin: 06/22/22 05:39 Dose: 40 mg Documented By: JANATEKSy Ondansetron HCl (Ondansetron Hcl 4 Mg/2 Ml Vial) 4 mg IVPUSH Q8H PRN PRN Reason: Nausea and Vomiting Oxycodone HCl (Oxycodone Hcl Immed Release 5 Mg Tablet) 5 mg PO Q4H PRN PRN Reason: Pain, Severe (Pain Scale 7-10) Pentoxifylline (Pentoxifylline Er 400 Mg Tablet.Er) 400 mg PO TID [facility] Last Admin: 06/22/22 08:43 Dose: 400 mg Documented By: DEYVI Pharmacy Consult (Consult Rx Perform Med Rec) 1 each MISCELLANE ONCE PRN PRN Reason: Consult order Sodium Chloride (0.9 % Sodium Chloride Flush 3 Ml Syringe) 3 ml IVFLUSH QSHIFT [facility] Last Admin: 06/21/22 21:28 Dose: 3 ml Documented By: ELVIS Tamsulosin HCl (Tamsulosin Hcl 0.4 Mg Capsule) 0.4 mg PO DAILY@1700 [facility] Last Admin: 06/21/22 17:46 Dose: 0.4 mg Documented By: CTORRZ Labs CBC & Chem 7: 06/22/22 05:59 06/22/22 05:59 Labs: Laboratory Results - last 24 hr 06/22/22 06/22/22 06/22/22 05:59 05:59 05:59 MCV 81.9 MCH 26.3 L MCHC 32.1 RDW 15.9 Plt Count 357 D MPV 10.4 Absolute Nucleated RBC 0.030 H Nucleated RBC % (auto) 0.2 Anion Gap 15 Estim Creat Clear Calc 117.0 Estimated GFR > 60 Random Glucose 120 H Calcium 8.2 L Total Bilirubin 0.5 Direct Bilirubin 0.3 AST 43 H ALT 59 H Alkaline Phosphatase 139 H D Total Protein 5.9 L D Albumin 3.0 L Procedures Date of Service Date of Service: 06/22/22 Progress Note: A&P Assessment and plan (1) Pneumonia: Status: Acute (2) Elevated troponin: Status: Acute (3) Dyspnea: Status: Acute (4) Hyperlipidemia: Status: Acute (5) Gallstones: Status: Acute (6) Acute pancreatitis: Status: Acute Plan White blood bleed cell count seems to be trending down. Given the degree of inflammation, pneumonia and cardiac enzyme leak, continue to recommend interval laparoscopic cholecystectomy at a later date, likely at least a month to allow pancreatic edema to resolve. This was communicated with the patient his questions seemed to be satisfactorily answered. Time Spent With Patient Time: Total time spent is greater than 50% in coordination of care (as documented) at patient's floor/unit and/or counseling patient: Quality Stroke Does the patient have a stroke diagnosis?: No VTE Prior VTE?: No VTE Risk Level:: Medical - moderate - high VTE Device Contraindication: Treatment Not Indicated VTE Drug Contraindication: N/A - Med Ordered
[2022-06-22] MEDS: Fluticasone Propionate Nasal 16 GM SPRAY 2 SPRAY NOSTRIL-B (11:07)
[2022-06-22] MEDS: 0.9 % Sodium Chloride Flush 3 ML SYRINGE IVFLUSH ×3 (11:07→21:31)
--- NOTE | 2022-06-22 13:42 | HO.PM.IMPN ---
Subjective Subjective Date of Service: 06/22/22 Interval History: the patient was seen and evaluated this morning Laying in bed, feels overall improvement but still having some nausea Tolerating diet, pain has decreased on room No reported other overnight events. Systemic review: No fever, chills or weakness No chest pain, palpitation No shortness of breath or coughing abdominal pain improved, mild nausea No urinary symptoms No any rash or wounds Physical Exam Vital Signs: Vital Signs: Last Vital Signs Temp 97.8 F 06/22/22 10:55 Pulse 79 06/22/22 10:55 Resp 20 06/22/22 10:55 BP 137/63 06/22/22 10:55 Pulse Ox 94 06/22/22 10:55 O2 Del Method 06/22/22 10:55 O2 Flow Rate 1 06/20/22 19:44 BMI result Body Mass Index 32.8 Const: Other: Constitutional : Alert, oriented, not in distress Neck : Normal inspection, Supple Cardiovascular : RRR, no JVP, no lower extremity edema Respiratory : fair bilateral air entry, no crackles, wheezes or rhonchi Gastrointestinal: soft, lax, Normal bowel sounds, mild generalized tenderness with palpation, no surgical signs Skin : Warm, Dry Neurological : Alert & oriented x3, No focal deficit Objective Data Active Medications Acetaminophen (Acetaminophen 325 Mg Tablet) 650 mg PO Q6H PRN PRN Reason: Pain, Mild (Pain Scale 1-3) Last Admin: 06/22/22 03:32 Dose: 650 mg Documented By: ELVIS Amlodipine Besylate (Amlodipine Besylate 5 Mg Tablet) 5 mg PO DAILY [facility] Last Admin: 06/22/22 08:43 Dose: 5 mg Documented By: DEYVI Docusate Sodium (Docusate Sodium 100 Mg Capsule) 100 mg PO BID [facility] Last Admin: 06/22/22 08:43 Dose: 100 mg Documented By: DEYVI Enoxaparin Sodium (Enoxaparin Sodium 40 Mg/0.4 Ml Syringe) 40 mg SUBCUT Q24H [facility] Last Admin: 06/21/22 14:13 Dose: 40 mg Documented By: ESTHER Fluticasone Propionate (Fluticasone Propionate Nasal 16 Gm [place]) 2 spray NOSTRIL-B DAILY [facility] Last Admin: 06/22/22 11:07 Dose: 2 spray Documented By: DEYVI Hydromorphone HCl (Hydromorphone Hcl 1 Mg/Ml Syringe) 0.5 mg IVPUSH Q4H PRN; Protocol PRN Reason: Pain, Severe (Pain Scale 7-10) Last Admin: 06/21/22 23:34 Dose: 0.5 mg Documented By: ELVIS Ampicillin Sodium/Sulbactam (Sodium 3 gm/ Sodium Chloride) 100 mls @ 200 mls/hr IV Q8H [facility] Last Infusion: 06/22/22 07:16 Dose: 0 mls/hr Documented By: ELVIS Omeprazole (Omeprazole 40 Mg Capsule.Dr) 40 mg PO DAILY@0600 [facility] Last Admin: 06/22/22 05:39 Dose: 40 mg Documented By: AI Ondansetron HCl (Ondansetron Hcl 4 Mg/2 Ml Vial) 4 mg IVPUSH Q8H PRN PRN Reason: Nausea and Vomiting Oxycodone HCl (Oxycodone Hcl Immed Release 5 Mg Tablet) 5 mg PO Q4H PRN PRN Reason: Pain, Severe (Pain Scale 7-10) Pentoxifylline (Pentoxifylline Er 400 Mg Tablet.Er) 400 mg PO TID [facility] Last Admin: 06/22/22 08:43 Dose: 400 mg Documented By: DEYVI Pharmacy Consult (Consult Rx Perform Med Rec) 1 each MISCELLANE ONCE PRN PRN Reason: Consult order Sodium Chloride (0.9 % Sodium Chloride Flush 3 Ml Syringe) 3 ml IVFLUSH QSHIFT [facility] Last Admin: 06/22/22 11:07 Dose: 3 ml Documented By: DEYVI Tamsulosin HCl (Tamsulosin Hcl 0.4 Mg Capsule) 0.4 mg PO DAILY@1700 [facility] Last Admin: 06/21/22 17:46 Dose: 0.4 mg Documented By: CINDIORRGeorge Labs CBC & Chem 7: 06/22/22 05:59 06/22/22 05:59 Labs: Laboratory Results - last 24 hr 06/22/22 06/22/22 06/22/22 05:59 05:59 05:59 MCV 81.9 MCH 26.3 L MCHC 32.1 RDW 15.9 Plt Count 357 D MPV 10.4 Absolute Nucleated RBC 0.030 H Nucleated RBC % (auto) 0.2 Anion Gap 15 Estim Creat Clear Calc 117.0 Estimated GFR > 60 Random Glucose 120 H Calcium 8.2 L Total Bilirubin 0.5 Direct Bilirubin 0.3 AST 43 H ALT 59 H Alkaline Phosphatase 139 H D Total Protein 5.9 L D Albumin 3.0 L Assessment and Plan (1) Acute pancreatitis: Status: Acute Plan 61-year-old male with past medical history of hypertension, hyperlipidemia, GERD, BPH presented with abdominal pain, found to have acute pancreatitis Acute pancreatitis complicated by NSTEMI type II Likely secondary to gallstone MRCP without obstruction decreased IV Dilaudid , start p.r.n. oxycodone advanced diet as tolerated increase physical activity to follow with surgery as OP for CCY acute hypoxic respiratory failure Secondary to pneumonia, 2/2 acute pancreatitis cxr with bilateral opacities, CT chest showing bilateral L>R possible pna, also continue empiric unasyn, cultures negative on RA transaminitis Trending down Monitor LFT Hypokalemia Potassium of 3.6 follow BMP Hypertension Continue amlodipine Hyperlipidemia holding statin incase drug associated pancreatitis GERD PPI BPH flomax dvt prophylaxis - lovenox full code reason for continued hospitalization:Advancing diet, IV opiates weaning down for safe discharge planning. Quality Stroke Does the patient have a stroke diagnosis?: No VTE Prior VTE?: No VTE Risk Level:: Medical - moderate - high VTE Device Contraindication: Treatment Not Indicated VTE Drug Contraindication: N/A - Med Ordered
[2022-06-22] MEDS: Enoxaparin Sodium 40 MG/0.4 ML SYRINGE SUBCUT (15:12)
[2022-06-22 16:00] VITALS: BP 134/84; PULSE 90; RESP 17; TEMP 37.2; O2SAT 96
[2022-06-22] MEDS: Tamsulosin HCL 0.4 MG CAPSULE PO (17:37)
[2022-06-22 20:00] VITALS: BP 163/77; PULSE 85; RESP 18; TEMP 37.2; O2SAT 96
[2022-06-22] MEDS: diphenhydrAMINE HCL 50 MG/ML VIAL 25 MG IVPUSH (23:02)
[2022-06-23] VITALS: BP 152/60; PULSE 84; RESP 20; TEMP 36.8; O2SAT 97
[2022-06-23] MEDS: Acetaminophen 325 MG TABLET 650 MG PO (01:26)
[2022-06-23 04:00] VITALS: BP 149/69; PULSE 86; RESP 18; TEMP 37.3; O2SAT 95
[2022-06-23] MEDS: Ampicillin Sodium/Sulbactam Na 3 GM in 0.9 % Sodium Chloride 100 ML IV (05:28)
[2022-06-23] MEDS: Omeprazole 40 MG CAPSULE.DR PO (05:28)
[2022-06-23 07:09] VITALS: BP 140/69; PULSE 77; RESP 20; TEMP 36.6; O2SAT 96
--- NOTE | 2022-06-23 07:13 | PM.PNGS ---
Subjective Subjective Date of Service: 06/23/22 Patient reports: no new complaints, feels better and tolerating a regular diet Interval history: The patient reports that he is doing well and has no abdominal pain, chest pain, difficulty breathing or shortness of breath. He believes he is being sent home today. He otherwise denies new interval complaints. Physical Exam Vital Signs: Vital Signs: Last Vital Signs Temp 97.9 F 06/23/22 07:09 Pulse 77 06/23/22 07:09 Resp 20 06/23/22 07:09 BP 140/69 H 06/23/22 07:09 Pulse Ox 96 06/23/22 07:09 O2 Del Method 06/23/22 07:09 O2 Flow Rate 1 06/20/22 19:44 BMI result Body Mass Index 32.8 Abdomen is overweight with vague, diffuse discomfort but no acute surgical findings. Objective Data Active Medications Acetaminophen (Acetaminophen 325 Mg Tablet) 650 mg PO Q6H PRN PRN Reason: Pain, Mild (Pain Scale 1-3) Last Admin: 06/23/22 01:26 Dose: 650 mg Documented By: ELVIS Amlodipine Besylate (Amlodipine Besylate 5 Mg Tablet) 5 mg PO DAILY [facility] Last Admin: 06/22/22 08:43 Dose: 5 mg Documented By: DEYVI Docusate Sodium (Docusate Sodium 100 Mg Capsule) 100 mg PO BID [facility] Last Admin: 06/22/22 21:31 Dose: 100 mg Documented By: ELVIS Enoxaparin Sodium (Enoxaparin Sodium 40 Mg/0.4 Ml Syringe) 40 mg SUBCUT Q24H [facility] Last Admin: 06/22/22 15:12 Dose: 40 mg Documented By: DEYVI Fluticasone Propionate (Fluticasone Propionate Nasal 16 Gm [place]) 2 spray NOSTRIL-B DAILY [facility] Last Admin: 06/22/22 11:07 Dose: 2 spray Documented By: DEYVI Hydromorphone HCl (Hydromorphone Hcl 1 Mg/Ml Syringe) 0.5 mg IVPUSH Q4H PRN; Protocol PRN Reason: Pain, Severe (Pain Scale 7-10) Last Admin: 06/21/22 23:34 Dose: 0.5 mg Documented By: ELVIS Ampicillin Sodium/Sulbactam (Sodium 3 gm/ Sodium Chloride) 100 mls @ 200 mls/hr IV Q8H [facility] Last Infusion: 06/23/22 06:10 Dose: 0 mls/hr Documented By: ELVIS Omeprazole (Omeprazole 40 Mg Capsule.Dr) 40 mg PO DAILY@0600 [facility] Last Admin: 06/23/22 05:28 Dose: 40 mg Documented By: ELVIS Ondansetron HCl (Ondansetron Hcl 4 Mg/2 Ml Vial) 4 mg IVPUSH Q8H PRN PRN Reason: Nausea and Vomiting Oxycodone HCl (Oxycodone Hcl Immed Release 5 Mg Tablet) 5 mg PO Q4H PRN PRN Reason: Pain, Severe (Pain Scale 7-10) Pentoxifylline (Pentoxifylline Er 400 Mg Tablet.Er) 400 mg PO TID [facility] Last Admin: 06/22/22 21:31 Dose: 400 mg Documented By: ELVIS Pharmacy Consult (Consult Rx Perform Med Rec) 1 each MISCELLANE ONCE PRN PRN Reason: Consult order Sodium Chloride (0.9 % Sodium Chloride Flush 3 Ml Syringe) 3 ml IVFLUSH QSHIFT [facility] Last Admin: 06/22/22 21:31 Dose: 3 ml Documented By: ELVIS Tamsulosin HCl (Tamsulosin Hcl 0.4 Mg Capsule) 0.4 mg PO DAILY@1700 [facility] Last Admin: 06/22/22 17:37 Dose: 0.4 mg Documented By: DYEVI Labs CBC & Chem 7: 06/22/22 05:59 06/22/22 05:59 Procedures Date of Service Date of Service: 06/23/22 Progress Note: A&P Assessment and plan (1) Pneumonia: Status: Acute (2) Elevated troponin: Status: Acute (3) Hyperlipidemia: Status: Acute (4) Gallstones: Status: Acute (5) Acute pancreatitis: Status: Acute Plan The patient is clinically improved from his moderate-severe pancreatitis which caused demand ischemia and troponin leak. He is recovering from his pneumonia. On CT, he had moderate-severe pancreatitis which would potentially complicate laparoscopic cholecystectomy at this time and increase the risk for open cholecystectomy. Given this, I will see the patient in 1-2 weeks and allow 4-6 weeks of interval healing and perform cholecystectomy, likely as an outpatient. The inherent risk of recurrence of gallstone pancreatitis and need to change this plan was discussed with the patient and he seemed understand his options. The importance of a low-fat diet, specifically avoiding cheeses, fried foods and cream sauce is was discussed and apparently understood. Plan as per primary team. Please call me with questions. Time Spent With Patient Time: Total time spent is greater than 50% in coordination of care (as documented) at patient's floor/unit and/or counseling patient: Quality Stroke Does the patient have a stroke diagnosis?: No VTE Prior VTE?: No VTE Risk Level:: Medical - moderate - high VTE Device Contraindication: Treatment Not Indicated VTE Drug Contraindication: N/A - Med Ordered
--- NOTE | 2022-06-23 09:55 | MHC.CM.PN ---
Male 61 Pancreatitis. He is discharged today to home self care. His will provide transportation home.
[2022-06-23] MEDS: Docusate Sodium 100 MG CAPSULE PO (10:35)
[2022-06-23] MEDS: ondansetron HCL 4 MG/2 ML VIAL IVPUSH (10:35)
[2022-06-23] MEDS: Pentoxifylline ER 400 MG TABLET.ER PO (10:35)
[2022-06-23] MEDS: amLODIPine Besylate 5 MG TABLET PO (10:35)
[2022-06-23 11:13] VITALS: BP 135/63; PULSE 77; RESP 20; TEMP 36.2; O2SAT 99
--- NOTE | 2022-06-23 11:34 | PC.NURSE ---
Addendum entered by Vincent Mauro RN 06/23/22 12:21: IV removed, d/c paperwork gone over with pt. pt signed d/c paper. 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 plan is for pt to be discharged today. pt stated he would like to be discharged prior to noon so he has a ride, informed.
--- NOTE | 2022-06-23 11:43 | P.DS_ITS ---
DS: Providers Provider Date of Service: 06/23/22 Date of admission: 06/13/22 15:32 Primary care physician: Woody Duvall MD Consults: 06/13/22 15:36 Consult to Gastroenterology Routine Consulting Provider: Louis Bell Reason for consultation: pancreatitis, transaminitis Consult to General Surgery Routine Consulting Provider: Alexander Ashford Reason for consultation: transaminitis, pancreatitis 06/16/22 08:55 Consult to Cardiology Routine Consulting Provider: Alek Baird Reason for consultation: NSTEMI Has provider been notified: No DS: Diagnosis Discharge Diagnosis (1) Pneumonia: Status: Acute (2) Elevated troponin: Status: Acute (3) Hyperlipidemia: Status: Acute (4) Gallstones: Status: Acute (5) Acute pancreatitis: Status: Acute (6) Transaminitis: Status: Acute (7) Acute respiratory failure with hypoxia: Status: Acute DS: Summary Hospital Course Hospital Course: Admission note HPI 61 year old male with history of htn, hld, gerd, and bph presented to the ED this morning with severe epigastric pain that came on gradually last night after consuming a ham and cheese universal grinder tool. He had also received influenza vaccine and COVID-19 booster earlier in the day. States the pain is primarily epigastric but radiates to the right and left upper quadrants. Denies radaition to the back. There is associated nausea but no vomiting. Also endorses constipation. He rarely consumes alcohol and did not have any alcohol yesterday. States the pain is so severe it is difficult to take a breath. States he has had similar episodes, typically postprandial, over the last few months that resolve spontaneously. States he will take tums or pepcid to help with sx but did not help last night. In ED, mild tachycardia 103, hypertensive 193/107 improved to 147/96. WBC 16.4. Lactic acid 2.8, improved to 2.3. Lipase 1948. AST 259, ALT 241, alk phos 178, total bili 1.4, direct bili 0.7. Glucose 218. Triglycerides 205. CT abd/pelvis shows edematous changes predominantly surrounding the pancreas.? Ill-defined areas of hypodensity in the pancreas.? Findings highly suggestive of acute pancreatitis without abscess. IN ED, patient recevied dose zosyn, 2L IVF bolus, and dilaudid. Pt to be admitted for acute pancreatitis with transaminitis. Hospital course The patient was admitted primarily for treatment of acute pancreatitis as repor navneet on CT scan. Believed to be secondary to gallbladder stones as his triglycerides were low and denied any significant history of alcohol abuse. MRCP was done and came back negative for any obstruction. Believes he passed a stone. Treated with IV fluids, IV Dilaudid and nausea medication with good response over the course of hospital stay as his diet was advanced to low-fat bland diet with good tolerance. He developed acute hypoxic respiratory failure secondary to pneumonia with chest x-ray showing bilateral opacities. CT scan was done showing similar findings. Treated with empiric Unasyn for total of 10 days as his cultures came back negative. Wean down the oxygen to room air as he became able to ambulate with no reported dyspnea. Noted to have elevated liver enzymes which trended down during the hospital stay as well. Evaluated by surgical team who recommended outpatient follow-up for planned cholecystectomy. Use Zofran as needed for nausea Advance your diet slowly, mainly low-fat diet Drink plenty of fluids To follow-up with from surgery as outpatient within 2 weeks to arrange for cholecystectomy Time Spent with Patient Time attestation: Total time spent providing and/or coordinating discharge services: Discharge coordination time: Greater than 30 minutes Quality: Safe Use of Opioids Does Pt have an Active Cancer Diagnosis on the Problem List?: No Quality: Stroke Does the patient have a stroke diagnosis?: No Physical Exam Vital Signs: Vital Signs: Last Vital Signs Temp 97.2 F 06/23/22 11:13 Pulse 77 06/23/22 11:13 Resp 20 06/23/22 11:13 BP 135/63 06/23/22 11:13 Pulse Ox 99 06/23/22 11:13 O2 Del Method 06/23/22 11:13 O2 Flow Rate 1 06/20/22 19:44 BMI result Body Mass Index 32.8 Const: Other: Constitutional : Alert, oriented, not in distress Neck : Normal inspection, Supple Cardiovascular : RRR, no JVP, no lower extremity edema Respiratory : fair bilateral air entry, no crackles, wheezes or rhonchi Gastrointestinal: soft, lax, Normal bowel sounds, no tenderness with palpation, no surgical signs Skin : Warm, Dry Neurological : Alert & oriented x3, No focal deficit DS: Data Imaging CT scan - abdomen: Radiologist's impression: ITS Impressions Abdomen/Pelvis CT 06/13/22 11:45 IMPRESSION: Edematous changes predominantly surrounding the pancreatitis. Ill-defined areas of hypodensity in the pancreas. Findings are highly suggestive of acute pancreatitis. An abscess or any other cause for the patient's leukocytosis is not seen. This critical result was discussed with LAWRENCE Moscoso, at 12:50 PM on the day of the exam and it was ascertained that the content and urgency of the report was understood at the time of direct communication. Fleischner guidelines were followed. Abdomen Ultrasound 06/13/22 16:04 IMPRESSION: 1. Edematous appearance of the pancreas, in keeping with today's CT showing findings of pancreatitis. 2. Cholelithiasis. 3. Small volume of free fluid in the right abdomen. Cholangiopancreatography MRI 06/15/22 13:05 IMPRESSION: Very limited exam due to respiratory motion artifact. Normal caliber intra and extrahepatic bile ducts. No common bile duct stone is appreciated however exam is significantly limited. Gallstones. Changes of acute pancreatitis as described above. Distended small and large bowel probably representing an ileus. Chest X-Ray 06/16/22 07:24 IMPRESSION: Interval development of patchy airspace disease at left perihilar and lower lung field associated with trace amount of left-sided pleural effusion, new since 06/13/2022. Abdomen/Pelvis CT 06/16/22 13:50 IMPRESSION: 1. Extensive peripancreatic stranding consistent with pancreatitis, similar to slightly improved from 06/13/2022. Small amount of free fluid, without appreciable focal collection. 2. Cholelithiasis. 3. Multifocal regions of pulmonary consolidation bilaterally, left lung greater than right, which may be infectious. 4. Small pleural effusions. Adjacent regions of dense opacity in the dependent lower lobes are favored to at least partially represent atelectasis. Chest CT 06/16/22 13:50 IMPRESSION: 1. Extensive peripancreatic stranding consistent with pancreatitis, similar to slightly improved from 06/13/2022. Small amount of free fluid, without appreciable focal collection. 2. Cholelithiasis. 3. Multifocal regions of pulmonary consolidation bilaterally, left lung greater than right, which may be infectious. 4. Small pleural effusions. Adjacent regions of dense opacity in the dependent lower lobes are favored to at least partially represent atelectasis. Discharge Plan Discharge Anticipated Discharge Date/Time: 06/23/22 11:35 Patient Disposition: Home, Self-Care Discharge Diagnosis: Acute pancreatitis Pneumonia Gallbladder stones Referrals: Woody Duvall MD [Primary Care Provider] - 1 Week Discharge Medications: New ondansetron 4 mg tablet,disintegrating 4 mg PO Q8H PRN (Reason: nausea and vomiting) Qty: 14 0RF Continued omeprazole 40 mg capsule,delayed release(DR/EC) 1 cap PO DAILY tamsulosin 0.4 mg capsule 1 cap PO DAILY amlodipine-benazepril 5-10 mg capsule 1 cap PO DAILY fluticasone propionate 50 mcg/actuation spray,suspension 2 spray intranasal DAILY rosuvastatin 40 mg tablet 1 tab PO DAILY Discharge Orders: Discharge Order (Routine); Ordered 06/23/22 Ordered By: Wallace Ortega Diet: Low fat, low cholesterol Activity on Discharge: As tolerated Stand Alone Forms: Patient Portal Discharge page Care Plan Goals: Read below Health Concerns: Read below Plan of Treatment: Read below Assessment: You were admitted to the hospital for evaluation of abdominal pain. Found to have acute pancreatitis believed to be secondary to gallbladder stones. Images did not show any obstruction. Treated with IV fluid, pain medication with good response over the course of hospital stay as you start tolerate low-fat diet. Developed pneumonia requiring oxygen supplement and IV antibiotic for total of 10 days. Weaned off the oxygen as cultures remain negative. Noted to have elevated liver enzymes which trended down during the hospital stay. Evaluated by surgery team recommended outpatient cholecystectomy. Use Zofran as needed for nausea Advance your diet slowly, mainly low-fat diet Drink plenty of fluids To follow-up with from surgery as outpatient within 2 weeks to arrange for cholecystectomy Patient Instructions: Low Fat Diet (DC)
== END 2022-06-23 12:34 | disposition home or self-care (01) | DRG 438 ==
LOC: HO.ED 14:02 → HO.EDOVER 15:44 → HO.S3 06-14 05:03 → HO.IMC 06-16 09:07
PROVIDERS: Internal Medicine; Physician Assistant; Admitting Provider Physician Assistant; Emergency Provider Emergency Medicine; PCP Internal Medicine; Visit Provider Student in an Organized Health Care Education/Training Program
DX: K85.10 Biliary acute pancreatitis without necrosis or infection (principal); I21.A1 Myocardial infarction type 2; J18.9 Pneumonia, unspecified organism; J80 Acute respiratory distress syndrome; N40.0 Benign prostatic hyperplasia without lower urinary tract symptoms; K80.20 Calculus of gallbladder without cholecystitis without obstruction; K21.9 Gastro-esophageal reflux disease without esophagitis; E78.5 Hyperlipidemia, unspecified; I10 Essential (primary) hypertension; E78.00 Pure hypercholesterolemia, unspecified; Z20.822 Contact with and (suspected) exposure to COVID-19; F17.210 Nicotine dependence, cigarettes, uncomplicated; Z71.6 Tobacco abuse counseling; Z79.51 Long term (current) use of inhaled steroids; Z79.899 Other long term (current) drug therapy
CPT/HCPCS: 36415; 71045; 71250; 74176; 74177; 74181; 76705; 80048; 80053; 80076; 81001; 82803; 83036; 83605; 83690; 83880; 84132; 84478; 84484; 85025; 85027; 87040; 87635; 93005; 93306; 99285; J0295; J1170; J1200; J1650; J1940; J2270; J2405; J2543; P9047; Q0163; Q9967

== ENCOUNTER 2024-02-05 10:20 | Outpatient (REF) | payer BC, SELFPAY ==
--- NOTE | ~2024-02-05 | US_ITS ---
EXAMINATION: US ABDOMEN COMPLETE CLINICAL INFORMATION: Pancreatitis versus pseudocyst, evaluate for retained gallstone. COMPARISON: 06/13/2022 ultrasound, 06/16/2022 CT TECHNIQUE: Real-time imaging of the abdominal viscera. FINDINGS: PANCREAS: Pancreas itself is not seen. In the region of the pancreas, large 13 x 14 x 11 cm complex predominantly cystic structure is seen. Internal echogenic components are present. No layering. Solid rounded component posteriorly is questioned. No internal vascularity demonstrated. ABDOMINAL AORTA: The proximal and distal segments are normal in caliber. Mid aorta is obscured. INFERIOR VENA CAVA: Visualized portions are normal. LIVER: Diffusely increased echogenicity to the liver parenchyma. No focal hepatic lesion. There is no intrahepatic biliary duct dilatation seen. Hepatopedal flow demonstrated within the main portal vein. GALLBLADDER: Surgically removed. COMMON BILE DUCT: Normal in caliber measuring 3 mm in diameter. RIGHT KIDNEY: Normal. No hydronephrosis. No renal calculi or focal parenchymal lesions. The kidney measures 10.6 cm in maximum dimension. LEFT KIDNEY: Normal. No hydronephrosis. No renal calculi or focal parenchymal lesions. The kidney measures 12.1 cm in maximum dimension. SPLEEN: Normal. The spleen measures 14.6 cm in maximum dimension. FREE FLUID: None. US/US abdomen complete IMPRESSION: 14 cm complex cystic collection in region of the pancreas, question pancreatic pseudocyst. Solid avascular nodular component posteriorly not excluded. Consider other cross-sectional imaging such as CT or MRI. Hepatic steatosis. Splenomegaly.
== END 2024-02-05 10:21 | disposition home or self-care (01) ==
LOC: HO.HMGCX 10:20
PROVIDERS: PCP Internal Medicine; Visit Provider Nurse Practitioner Adult Health
DX: R10.9 Unspecified abdominal pain (principal)
CPT/HCPCS: 76700